=== PATIENT | male | born 1965 | race African-American/Black ===

== ENCOUNTER 2016-09-19 14:34 | Emergency (ER) | payer OTHER ==
[2016-09-19 14:57] VITALS: BP 127/71; PULSE 68; RESP 25; TEMP 98.1; O2SAT 100
[2016-09-19] MEDS ORDERED: ONDANSETRON 4 MG/2 ML VIAL IVP ONE (16:13)
[2016-09-19] MEDS ORDERED: NS 1,000 ML IV ONE (16:13)
[2016-09-19 16:40] LABS: % IMMATURE GRANULYOCYTES 0.3 % (0.0-1.1); ABSOLUTE IMMATURE GRANULOCYTES 0.02 10^3/uL (0.00-0.10); ADD DIFF? NO; ADD MORPH? NO; ADD SCAN? NO; ATYPICAL LYMPHOCYTE FLAG 10 (0-99); FRAGMENT RBC FLAG 20 (0-99); HEMATOCRIT 41.3 % (40.0-51.0); HEMOGLOBIN 14.1 g/dL (13.7-17.5); LEFT SHIFT FLG 0 (0-99); LIPEMIA HEMOLYSIS FLAG 90 (0-99); MEAN CELL HEMOGLOBIN 27.7 pg (27.9-34.1); MEAN CELL HEMOGLOBIN CONCENTR. 34.1 g/dL (32.4-36.7); MEAN CELL VOLUME 81.1 fL (81.5-99.8); MEAN PLATELET VOLUME 10.9 fL (8.7-11.7); PLATELET CLUMPS FLAG 0 (0-99); PLATELET COUNT 314 10^3/uL (150-400); RED BLOOD CELL COUNT 5.09 10^6/uL (4.40-6.38); RED CELL DISTRIBUTION WIDTH 18.4 % (11.5-15.2)
[2016-09-19 16:57] LABS: ALBUMIN 4.1 g/dL (3.5-5.0); BILIRUBIN,TOTAL 1.1 mg/dL (0.1-1.4); CALCIUM 10.5 mg/dL (8.5-10.4); CREATININE 1.5 mg/dL (0.7-1.3); POTASSIUM 3.5 mEq/L (3.5-5.2); TOTAL PROTEIN 7.8 g/dL (6.3-8.2)
[2016-09-19] MEDS ORDERED: MAALOX/HYOSC GI COCKTAIL 45 ML BOTTLE PO ONE (17:28)
[2016-09-19 17:56] LABS: LEUKOCYTE ESTERASE,URINE TRACE (NEGATIVE); NITRITE,URINE NEGATIVE (NEGATIVE); PH,URINE 5.5 (5.0-7.5)
[2016-09-19 18:01] LABS: COLOR DARK YELLOW
[2016-09-19 18:04] LABS: BACTERIA TRACE /hpf (NONE SEEN); MUCUS 2+ /lpf (NONE-1+); RBC,URINE NONE SEEN /hpf (0-3)
--- NOTE | 2016-09-19 18:04 | UCPHY ---
H & P Patient Type: Established Chief Complaint Nursing Narrative: abd pain alcoholic since wednesday Time Seen by Provider: 09/19/16 16:08 HPI/ROS: This patient has epigastric abdominal pain since Wednesday, 3 days prior to arrival. He describes it as crampy and achy. Symptoms increased but when he eats food. They also radiate to his back. He reports moderate intensity with no other exacerbating or alleviating factors. He has taken pantoprazole in the past for gastritis but is currently out of the medication. He has decreased appetite associated with the symptoms but is still tolerating some p.o. intake. He reports nausea as well but no vomiting. ROS: No high fevers or chills. No other constitutional symptoms. HEENT: No headache or other complaints pulmonary: No cough for shortness of breath. Cardiovascular: No chest pain. GI: Reports no bowel movement for 2 days but normal bowel movements prior to that. No urinary symptoms. 10 point ROS is otherwise negative. Source: Patient Exam Limitations: No limitations - Personal History Current Tetanus/Diphtheria Vaccine: Unsure Tetanus Vaccine Date: unsure - Medical/Surgical History PMH: Alcohol abuse. He reports his last alcohol intake was 5 days prior to arrival. He admits to binge drinking at times. Gastritis Hx Asthma: No Hx Chronic Respiratory Disease: No Hx Diabetes: No Hx Cardiac Disease: No Hx Renal Disease: No Hx Cirrhosis: No Hx Alcoholism: No Hx HIV/AIDS: No Hx Splenectomy or Spleen Trauma: No Other PMH: DENIES - Family History Significant Family History: No pertinent family hx - Social History Smoking Status: Current every day smoker Alcohol Use: Heavy (Binge drinker. Last intake was 5 days prior to arrival.) Drug Use: Marijuana (He reports daily marijuana use.) - Physical Exam Exam: General Appearance: Pleasant male Alert, no distress. Eyes: Pupils equal and round no pallor or injection. ENT, Mouth: Mucous membranes moist. Respiratory: There are no retractions, lungs are clear to auscultation. Cardiovascular: Regular rate and rhythm. Gastrointestinal: Normoactive, soft, mild epigastric tenderness that reproduces since symptoms. No guarding or rebound. No hepatomegaly or splenomegaly is appreciated. Back: No CVA tenderness. Neurological: Alert with no focal deficits. Skin: Warm and dry, no rashes. Musculoskeletal: Neck is supple nontender. Extremities are symmetrical, full range of motion. Psychiatric: Mood and affect normal DIFFERENTIAL DIAGNOSIS: After history and physical exam differential diagnosis was considered for gastritis, pancreatitis, cholecystitis, ulcer Constitutional: Initial Vital Signs Temperature (C) 36.7 C 09/19/16 14:54 Heart Rate 68 09/19/16 14:54 Respiratory Rate 25 H 09/19/16 14:54 Blood Pressure 127/71 H 09/19/16 14:54 O2 Sat (%) 100 09/19/16 14:54 O2 Delivery Mode Room Air Allergies/Adverse Reactions: No Known Allergies Allergy (Verified 09/19/16 14:54) Home Medications: Medication Instructions Recorded Ondansetron Odt [Zofran Odt] 4 mg PO Q4PRN PRN #10 tab 07/10/16 Pantoprazole Sodium [Protonix 40mg 40 mg PO DAILY #30 tab 07/10/16 (RX)] Pantoprazole Sodium [Protonix 40mg 40 mg PO DAILY #30 tab 09/19/16 (*)] Medical Decision Making ED Course/Re-evaluation: CBC is normal. Chemistries essentially normal. Course: Zofran with resolution of nausea and GI cocktail with resolution of epigastric discomfort. Discussion: Patient has findings most consistent with gastritis. I encouraged him to quit smoking and avoid alcohol abuse. Will restart him on Protonix. Maalox in addition if needed. He will follow up with primary care physician and return for any significant worsening despite treatment plan - Data Points Laboratory Results: Laboratory Results 09/19/16 16:35 09/19/16 16:35 09/19/16 09/19/16 17:50 16:35 WBC 6.08 10^3/uL (3.80-9.50) RBC 5.09 10^6/uL (4.40-6.38) Hgb 14.1 g/dL (13.7-17.5) Hct 41.3 % (40.0-51.0) MCV 81.1 L fL (81.5-99.8) MCH 27.7 L pg (27.9-34.1) MCHC 34.1 g/dL (32.4-36.7) RDW 18.4 H % (11.5-15.2) Plt Count 314 10^3/uL (150-400) MPV 10.9 fL (8.7-11.7) Neut % (Auto) 60.2 % (39.3-74.2) Lymph % (Auto) 27.0 % (15.0-45.0) [place] % (Auto) 11.8 % (4.5-13.0) Eos % (Auto) 0.0 L % (0.6-7.6) Baso % (Auto) 0.7 % (0.3-1.7) Nucleat RBC Rel Count 0.0 % (0.0-0.2) Absolute Neuts (auto) 3.66 10^3/uL (1.70-6.50) Absolute Lymphs (auto) 1.64 10^3/uL (1.00-3.00) Absolute Monos (auto) 0.72 10^3/uL (0.30-0.80) Absolute Eos (auto) 0.00 L 10^3/uL (0.03-0.40) Absolute Basos (auto) 0.04 10^3/uL (0.02-0.10) Absolute Nucleated RBC 0.00 10^3/uL (0-0.01) Immature Gran % 0.3 % (0.0-1.1) Immature Gran # 0.02 10^3/uL (0.00-0.10) Sodium 135 mEq/L (134-144) Potassium 3.5 mEq/L (3.5-5.2) Chloride 98 mEq/L (97-110) Carbon Dioxide 20 L mEq/l (22-31) Anion Gap 17 mEq/L (8-16) BUN 19 mg/dL (7-23) Creatinine 1.5 H mg/dL (0.7-1.3) Estimated GFR 49 Glucose 101 H mg/dL (70-100) Calcium 10.5 H mg/dL (8.5-10.4) Total Bilirubin 1.1 mg/dL (0.1-1.4) AST 55 IU/L (17-59) ALT 69 IU/L (21-72) Alkaline Phosphatase 90 IU/L (38-126) Total Protein 7.8 g/dL (6.3-8.2) Albumin 4.1 g/dL (3.5-5.0) Lipase 30.0 IU/L (23-300) Urine Color DARK YELLOW Urine Appearance HAZY Urine pH 5.5 (5.0-7.5) Ur Specific [place] >= 1.030 (1.002-1.030) Urine Protein 1+ H (NEGATIVE) Urine Ketones 1+ H (NEGATIVE) Urine Blood NEGATIVE (NEGATIVE) Urine Nitrate NEGATIVE (NEGATIVE) Urine Bilirubin POSITIVE H (NEGATIVE) Urine Urobilinogen 0.2 EU (0.2-1.0) Ur Leukocyte Esterase TRACE H (NEGATIVE) Urine RBC NONE SEEN /hpf (0-3) Urine WBC 3-5 H /hpf (0-3) Ur Epithelial Cells 1+ /lpf (NONE-1+) Urine Bacteria TRACE H /hpf (NONE SEEN) Hyaline Casts 5-15 /lpf (0-1) Urine Mucus 2+ H /lpf (NONE-1+) Urine Glucose NEGATIVE (NEGATIVE) Medications Given: Discontinued Medications Sodium Chloride (Ns) 1,000 mls @ 0 mls/hr IV ONCE ONE PRN Reason: Wide Open Stop: 09/19/16 16:14 Last Admin: 09/19/16 16:37 Dose: 1,000 mls Miscellaneous Medication (Gi Cocktail(No Lido)) 45 ml PO EDNOW ONE Stop: 09/19/16 17:29 Last Admin: 09/19/16 17:58 Dose: 45 ml Ondansetron HCl (Zofran) 4 mg IVP EDNOW ONE Stop: 09/19/16 16:14 Last Admin: 09/19/16 17:57 Dose: 4 mg Departure - Departure Disposition: Home, Routine, Self-Care Clinical Impression: gastritis Condition: Good Instructions: Gastritis (ED) Additional Instructions: Diagnosis: Gastritis Plan: Quit smoking Decreased alcohol intake Protonix acid ellie Maalox in addition as needed [place] diet to feel improved Go to the emergency department for any significant worsening despite treatment plan Follow up primary care physician for any ongoing symptoms Referrals: NONE *PRIMARY CARE P,. [Primary Care Provider] - As per Instructions Prescriptions: Pantoprazole Sodium [Protonix 40mg (*)] 40 mg PO DAILY #30 tab - PQRS PQRS Measurement: NA
== END 2016-09-19 18:36 | disposition home or self-care (01) ==
LOC: CED 14:34
DX: K29.70 Gastritis, unspecified, without bleeding (principal); Z72.0 Tobacco use; Z72.89 Other problems related to lifestyle; F12.90 Cannabis use, unspecified, uncomplicated
CPT/HCPCS: 80053-PO; 81003-PO; 81015-PO; 83690-PO; 85025-PO; 96361-PO; 96374-PO; 99215-PO; G0463-PO; J2405

== ENCOUNTER 2016-10-21 07:03 | Emergency (ER) | payer OTHER ==
[2016-10-21] MEDS ORDERED: MAALOX/LIDO/HYOSC GI COCKTAIL 55 ML BOTTLE PO ONE (07:22)
--- NOTE | 2016-10-21 07:24 | UCPHY ---
H & P Patient Type: Established Time Seen by Provider: 10/21/16 07:17 HPI/ROS: CHIEF COMPLAINT: Toe pain HISTORY OF PRESENT ILLNESS: Patient is a 51-year-old man who is well known to the department who comes this morning complaining of pain and deformity of his right great toe. 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 He states that has been this way for several years but is just starting to bother him. He also complains of indigestion. He has been seen here several times for this. Last time he was treated successfully with a GI cocktail. He is requesting this again. He is also prescribed antacids which she states he has been taking. Does not have any abdominal pain, vomiting or diarrhea. No fevers. REVIEW OF SYSTEMS: Constitutional: denies: chills, fever, recent illness, recent injury EENTM: denies: blurred vision, double vision, nose congestion Respiratory: denies: cough, shortness of breath Cardiac: denies: chest pain, irregular heart rate, lightheadedness, palpitations Gastrointestinal/Abdominal: See HPI Genitourinary: denies: dysuria, frequency, hematuria, pain Musculoskeletal: See HPI Skin: denies: lesions, rash, jaundice, bruising Neurological: denies: headache, numbness, paresthesia, tingling, dizziness, weakness Hematologic/Lymphatic: denies: blood clots, easy bleeding, easy bruising Immunologic/allergic: denies: HIV/AIDS, transplant EXAM: GENERAL: Well-appearing, well-nourished and in no acute distress. HEAD: Atraumatic, normocephalic. EYES: Pupils equal round and reactive to light, extraocular movements intact, sclera anicteric, conjunctiva are normal. ENT: TMs normal, nares patent, oropharynx clear without exudates. Moist mucous membranes. NECK: Normal range of motion, supple without lymphadenopathy or JVD. LUNGS: Breath sounds clear to auscultation bilaterally and equal. No wheezes rales or rhonchi. HEART: Regular rate and rhythm without murmurs, rubs or gallops. ABDOMEN: Soft, nontender, normoactive bowel sounds. No guarding, no rebound. No masses appreciated. BACK: No CVA tenderness, no spinal tenderness, step-offs or deformities EXTREMITIES: Bunion to right great toe. Not tender, no erythema, moist in between 1st and 2nd toe. No erythema or discharge NEUROLOGICAL: Cranial nerves II through XII grossly intact. Normal speech, normal gait. 5/5 strength, normal movement in all extremities, normal sensation PSYCH: Normal mood, normal affect. SKIN: Warm, dry, normal turgor, no visible rashes or lesions. Source: Patient Exam Limitations: No limitations - Personal History Tetanus Vaccine Date: unsure - Medical/Surgical History Hx Asthma: No Hx Chronic Respiratory Disease: No Hx Diabetes: No Hx Cardiac Disease: No Hx Renal Disease: No Hx Cirrhosis: No Hx Alcoholism: Yes Hx HIV/AIDS: No Hx Splenectomy or Spleen Trauma: No Other PMH: Alcoholism, pancreatitis - Family History Significant Family History: No pertinent family hx - Social History Smoking Status: Current every day smoker Alcohol Use: Heavy Drug Use: Marijuana Constitutional: Initial Vital Signs Temperature (C) 36.6 C 10/21/16 07:22 Heart Rate 136 H 10/21/16 07:22 Respiratory Rate 18 10/21/16 07:22 Blood Pressure 160/138 H 10/21/16 07:22 O2 Sat (%) 96 10/21/16 07:22 O2 Delivery Mode Room Air Allergies/Adverse Reactions: No Known Allergies Allergy (Verified 09/19/16 14:54) Home Medications: Medication Instructions Recorded Ondansetron Odt [Zofran Odt] 4 mg PO Q4PRN PRN #10 tab 07/10/16 Pantoprazole Sodium [Protonix 40mg 40 mg PO DAILY #30 tab 07/10/16 (RX)] Pantoprazole Sodium [Protonix 40mg 40 mg PO DAILY #30 tab 09/19/16 (*)] Medical Decision Making ED Course/Re-evaluation: We discussed foot care and donuts and keeping his feet dry as well as follow-up to a public address system mechanic. Will also treated with GI cocktail as he requests. He is drinking rowena aislinn currently. His abdominal exam is benign. Declines further workup or testing at this time. We discussed indications for returning. Differential Diagnosis: Partial list of the Differential diagnosis considered include but were not limited to; bunion, GERD, anxietyand although unlikely based on the history and physical exam, I also considered perforated ulcer, pancreatitis fracture abscess, cellulitis, osteomyelitis, gout. I discussed these differential diagnoses and the plan with the patient as well as the usual and expected course. The patient understands that the diagnosis is provisional and that in medicine we are not always correct and that further workup is often warranted. Usual and customary warnings were given. All of the patient's questions were answered. The patient was instructed to return to the emergency department should the symptoms at all worsen or return, otherwise to followup with the physician as we discussed. - Data Points Medications Given: Discontinued Medications Miscellaneous Medication (Gi Cocktail) 55 ml PO EDNOW ONE Stop: 10/21/16 07:23 Last Admin: 10/21/16 07:36 Dose: 55 ml Departure - Departure Disposition: Home, Routine, Self-Care Clinical Impression: Toe pain, right, Indigestion Condition: Fair Instructions: Bunion (ED), Indigestion (ED) Referrals: NONE *PRIMARY CARE P,. [Primary Care Provider] - As per Instructions My Corrigan [Doctor of Podiatric Medicine] - As per Instructions - PQRS PQRS Measurement: 134: Depression screening and followup, PRIME MD-PHQ2 (12 years and older) Over the last 2 weeks, how often have you been bothered by any of the following problems? 1. Feeling down, depressed, or hopeless? 2. Little interest or pleasure in doing things? Patient answered no to both 1 and 2 130: Documentation of medications. Reviewed all patient medications, doses, route and frequency. 226: Do you smoke? No. 47: 65 and older: Advanced care planning. Patient designates surrogate decision maker as spouse . Patient has advanced directive. 51: 18 years old and older with diagnosis of COPD, spirometry performance. Spirometry not performed; equipment not available. 52: 18 years old and older with COPD and symptoms of COPD or FEV1<60% predicted prescribed a B Agonist. Not applicable
[2016-10-21 07:25] VITALS: TEMP 97.9; O2SAT 96
[2016-10-21 07:39] VITALS: BP 152/110; PULSE 90; RESP 16
== END 2016-10-21 07:37 | disposition home or self-care (01) ==
LOC: CED 07:03
DX: M79.674 Pain in right toe(s) (principal); K30 Functional dyspepsia; F17.200 Nicotine dependence, unspecified, uncomplicated
CPT/HCPCS: 99214-PO; G0463-PO

== ENCOUNTER 2016-12-16 10:06 | Emergency (ER) | payer OTHER ==
[2016-12-16 10:13] VITALS: BP 125/62; PULSE 85; RESP 18; O2SAT 95
[2016-12-16 10:45] VITALS: TEMP 98
--- NOTE | 2016-12-16 10:54 | UCPHY ---
H & P Time Seen by Provider: 12/16/16 10:40 Patient Type: Established HPI/ROS: This patient complains of a cough associated with hoarse voice. He describes this as a dry hacking cough with feeling of some chest congestion and he has noted associated posttussive emesis from gagging from the cough. He has mild shortness of breath associated with this. The symptoms started 3 days prior to arrival and feels the severity is worsening. He notes no exacerbating or alleviating factors. ROS: No high fevers or chills. He does have low-grade subjective fevers. No significant fatigue. HEENT: Mild nasal congestion. No other complaints. Pulmonary: No pleuritic pain. No respiratory distress. No hemoptysis. Cardiovascular: No heart palpitations or lightheadedness. No lower extremity swelling or calf pain. GI: No nausea. No abdominal pain. 10 point ROS is otherwise negative. Social History: Smokes just under a pack cigarettes a day and has for years. Uses marijuana. No or other recreational drugs. Works as a cook. Smoking Status: Current every day smoker Physical Exam: Physical Exam Vital signs are normal. General: Pleasant black male with no acute distress HEENT: Nose: Clear discharge bilaterally. No sinus tenderness to percussion. Ears: External canals and tympanic membranes are clear with no erythema or abnormal findings bilaterally. Oropharynx: No erythema or exudates. Mildly hoarse voice. No drooling or stridor. Eyes: Pupils equal and react to light. Extraocular motions are intact. Neck: Supple with no meningismus. No lymphadenopathy Lungs: Expiratory wheeze-mild bilaterally. Minimal rhonchi. No rales. Cardiac: Regular rate and rhythm with no murmur gallop or rub no leg edema or calf tenderness. Abdomen: Soft, nontender Skin: No rash or pallor. Neuro: Alert with no focal deficits noted. Initial differential diagnosis: Bronchitis-viral versus bacterial such as pertussis, doubt pneumonia, COPD Constitutional: Initial Vital Signs Temperature (C) 36.6 C 12/16/16 10:11 Heart Rate 85 12/16/16 10:11 Respiratory Rate 18 12/16/16 10:11 Blood Pressure 125/62 H 12/16/16 10:11 O2 Sat (%) 95 12/16/16 10:11 O2 Delivery Mode Room Air Allergies/Adverse Reactions: No Known Allergies Allergy (Verified 09/19/16 14:54) Home Medications: Medication Instructions Recorded Ondansetron Odt [Zofran Odt] 4 mg PO Q4PRN PRN #10 tab 07/10/16 Pantoprazole Sodium [Protonix 40mg 40 mg PO DAILY #30 tab 07/10/16 (RX)] Pantoprazole Sodium [Protonix 40mg 40 mg PO DAILY #30 tab 09/19/16 (*)] Albuterol Hfa Anes Only [Proair 2 puffs IH Q4 PRN #1 mdi 12/16/16 Hfa Icu (*)] Azithromycin [Zithromax] 250 mg PO DAILY #6 tab 12/16/16 MDM/Departure - [facility] ED Course/Re-evaluation: Discussion: This patient has normal vitals sooner exception of a O2 sat of 95% appears well and has bronchitis findings with history of smoking, will cover with macrolide antibiotic given associated findings. - Depart Disposition: Home, Routine, Self-Care Clinical Impression: Acute bronchitis Qualifiers: Bronchitis organism: unspecified organism Qualified Code(s): J20.9 - Acute bronchitis, unspecified Condition: Good Instructions: Acute Bronchitis (ED), How to Stop Smoking (ED) Additional Instructions: Diagnosis: Acute bronchitis Plan: Humidifier Albuterol inhaler with spacer for cough, wheeze or shortness of breath Zithromax antibiotic Quit smoking No work for the next day or 2. Return for any significant worsening despite treatment plan Stand Alone Forms: Work Excuse Prescriptions: Albuterol Hfa Anes Only [Proair Hfa Icu (*)] 2 puffs IH Q4 PRN #1 mdi PRN Reason: Wheezing Azithromycin [Zithromax] 250 mg PO DAILY #6 tab Referrals: NONE *PRIMARY CARE P,. [Primary Care Provider] - As per Instructions - PQRS PQRS Measurement: NA
== END 2016-12-16 11:06 | disposition home or self-care (01) ==
LOC: CED 10:06
DX: J20.9 Acute bronchitis, unspecified (principal); F17.210 Nicotine dependence, cigarettes, uncomplicated
CPT/HCPCS: 99214-PO; G0463-PO

== ENCOUNTER 2017-01-17 07:21 | Emergency (ER) | payer SELFPAY ==
[2017-01-17 07:34] VITALS: RESP 18
[2017-01-17] MEDS ORDERED: NS 1,000 ML IV ONE ×2 (07:44→10:00)
[2017-01-17] MEDS ORDERED: ONDANSETRON 4 MG/2 ML VIAL IVP ONE (07:44)
[2017-01-17] MEDS ORDERED: PANTOPRAZOLE SODIUM 40 MG VIAL IVP ONE (07:45)
--- NOTE | 2017-01-17 07:52 | EDPHY ---
H & P Stated Complaint: n/v Time Seen by Provider: 01/17/17 07:30 HPI/ROS: CHIEF COMPLAINT: Nausea vomiting, dehydrated HISTORY OF PRESENT ILLNESS: This is a 51-year-old gentleman has been seen in the emergency department a number of occasions complaints of abdominal pain, nausea, vomiting. Per the old records it looks as if he may have been diagnosed with gastritis. Patient presents today stating that at midnight he developed nausea and then has had multiple bouts of vomiting over the past 8 hours. No diarrhea. Reports no fever. No abdominal prior to the vomiting; patient now feels that his abdomen is sore secondary to recurrent bouts of vomiting. No hematemesis. Patient denies any cold or cough symptoms, chest pain, or shortness of breath. Denies palpitations. No urinary complaints. He reports some lightheadedness but no syncope. REVIEW OF SYSTEMS: Aside from elements discussed in the HPI, a comprehensive 10-point review of systems was reviewed and is negative. PAST MEDICAL HISTORY: Patient denies. Records indicate prior diagnosis of gastritis. SOCIAL HISTORY: Smoker, alcohol use. VITAL SIGNS Reviewed by me. GENERAL: Well-developed, reports he feels very dehydrated. No respiratory distress. HEENT: Atraumatic. Eyes: [place] sclera, no injection. Mouth: dry mucous membranes. No erythema or lesions. Neck: supple with no adenopathy. LUNGS: Clear to auscultation bilaterally, no wheezes, rhonchi or rales. CARDIAC: Slightly tachycardic on my examination. No rubs, murmurs or gallops. ABDOMEN: Soft, nontender, nondistended, bowel sounds normal. BACK: No CVA tenderness. EXTREMITIES: No trauma. No edema. Range of motion is normal throughout. NEURO: Alert and oriented, grossly nonfocal. SKIN: Warm and dry, no rash. PSYCHIATRIC: Normal mentation, no agitation. Source: Patient, Old records - Personal History Current Tetanus/Diphtheria Vaccine: Yes Current Tetanus Diphtheria and Acellular Pertussis (TDAP): Yes Tetanus Vaccine Date: last 10 years - Medical/Surgical History Hx Asthma: No Hx Chronic Respiratory Disease: No Hx Diabetes: No Hx Cardiac Disease: No Hx Renal Disease: No Hx Cirrhosis: No Hx Alcoholism: Yes Hx HIV/AIDS: No Hx Splenectomy or Spleen Trauma: No Other PMH: Alcoholism, pancreatitis - Social History Smoking Status: Current every day smoker Constitutional: Initial Vital Signs Temperature (C) 36.3 C 01/17/17 07:32 Heart Rate 90 01/17/17 07:32 Respiratory Rate 18 01/17/17 07:32 Blood Pressure 138/78 H 01/17/17 07:32 O2 Sat (%) 100 01/17/17 07:32 O2 Delivery Mode Room Air O2 (L/minute) 2 Allergies/Adverse Reactions: No Known Allergies Allergy (Verified 09/19/16 14:54) Home Medications: Medication Instructions Recorded Ondansetron Odt [Zofran Odt] 4 mg PO Q4PRN PRN #10 tab 07/10/16 Pantoprazole Sodium [Protonix 40mg 40 mg PO DAILY #30 tab 07/10/16 (RX)] Pantoprazole Sodium [Protonix 40mg 40 mg PO DAILY #30 tab 09/19/16 (*)] Albuterol Hfa Anes Only [Proair 2 puffs IH Q4 PRN #1 mdi 12/16/16 Hfa Icu (*)] Azithromycin [Zithromax] 250 mg PO DAILY #6 tab 12/16/16 Omeprazole 20 mg PO DAILY #30 tab 01/17/17 Ondansetron Odt [Zofran Odt 4 mg 4 mg PO Q6 PRN #8 tab 01/17/17 (RX)] Medical Decision Making ED Course/Re-evaluation: 51-year-old gentleman presenting with reports of nausea and vomiting for a number of hours. Patient appears uncomfortable. Intermittently tachycardic on my examination, intermittently tachypneic. Reports abdominal pain which started after his vomiting. IV was established. Zofran was administered. Labs are remarkable for a anion gap of 23 with a bicarb of 15. Patient had an episode of retching while in the emergency department. He smells quite ketotic on his breath. Reports his last alcohol use was last p.m. prior to going into work. Serum ketones and serum alcohol level are not available at the [facility] Emergency Department. Patient's presentation seems most consistent with alcoholic ketoacidosis. Patient received D5 normal saline. Patient was reexamined at 9:15 a.m.. He reports his nausea is better but continues to complain of abdominal discomfort. Pain meds were ordered. Patient received Dilaudid. Patient's beta hydroxybutyric acid is positive at 3.39. I suspect this may be an alcoholic ketoacidosis. Again I discussed admission to the hospital with the patient. He wishes to be discharged home. Patient's chemistries were repeated after L fluid a L on D5 normal saline. His anion gap has closed. He has been able to tolerate Gatorade. He is up and ambulatory in the emergency department without difficulty. He reports feeling improved. He was discharged with his son with a prescription of Zofran as well as a prescription for omeprazole. He will follow up as needed. Differential Diagnosis: Differential diagnosis of the patient's nausea and vomiting was considered including but not limited to gastroenteritis, gastritis, alcohol intoxication, withdrawal symptoms, intraabdominal processes including appendicitis, pancreatitis, bowel obstruction and medication side effect. - Data Points Laboratory Results: Laboratory Results 01/17/17 07:50 01/17/17 11:10 01/17/17 01/17/17 01/17/17 12:30 11:10 08:55 WBC RBC Hgb Hct MCV MCH MCHC RDW Plt Count MPV Neut % (Auto) Lymph % (Auto) [place] % (Auto) Eos % (Auto) Baso % (Auto) Nucleat RBC Rel Count Absolute Neuts (auto) Absolute Lymphs (auto) Absolute Monos (auto) Absolute Eos (auto) Absolute Basos (auto) Absolute Nucleated RBC Immature Gran % Immature Gran # VBG Lactic Acid Sodium 139 mEq/L mEq/L (134-144) Potassium 3.8 mEq/L mEq/L (3.5-5.2) Chloride 107 mEq/L mEq/L (97-110) Carbon Dioxide 19 mEq/l L mEq/l (22-31) Anion Gap 13 mEq/L mEq/L (8-16) BUN 8 mg/dL mg/dL (7-23) Creatinine 0.6 mg/dL L mg/dL (0.7-1.3) Estimated GFR > 60 Glucose 203 mg/dL H D mg/dL (70-100) Calcium 8.8 mg/dL mg/dL (8.5-10.4) Total Bilirubin Conjugated Bilirubin Unconjugated Bilirubin AST ALT Alkaline Phosphatase Total Protein Albumin Lipase Beta-Hydroxybutyrate 3.39 mmol/L H mmol/L (0.02-0.27) Urine Color YELLOW Urine Appearance CLEAR Urine pH 5.0 (5.0-7.5) Ur Specific [place] >= 1.030 (1.002-1.030) Urine Protein TRACE H (NEGATIVE) Urine Ketones 3+ H (NEGATIVE) Urine Blood NEGATIVE (NEGATIVE) Urine Nitrate NEGATIVE (NEGATIVE) Urine Bilirubin NEGATIVE (NEGATIVE) Urine Urobilinogen 0.2 EU EU (0.2-1.0) Ur Leukocyte Esterase NEGATIVE (NEGATIVE) Urine RBC 1-3 /hpf /hpf (0-3) Urine WBC 5-10 /hpf H /hpf (0-3) Ur Epithelial Cells 3+ /lpf H /lpf (NONE-1+) Urine Bacteria 1+ /hpf H /hpf (NONE SEEN) Urine Mucus 4+ /lpf H /lpf (NONE-1+) Urine Yeast OCCASIONAL /hpf H /hpf (NONE SEEN) Urine Glucose 1+ H (NEGATIVE) 01/17/17 01/17/17 01/17/17 08:35 07:50 07:50 WBC 5.80 10^3/uL 10^3/uL (3.80-9.50) RBC 4.32 10^6/uL L 10^6/uL (4.40-6.38) Hgb 11.5 g/dL L g/dL (13.7-17.5) Hct 34.9 % L % (40.0-51.0) MCV 80.8 fL L fL (81.5-99.8) MCH 26.6 pg L pg (27.9-34.1) MCHC 33.0 g/dL g/dL (32.4-36.7) RDW 18.0 % H % (11.5-15.2) Plt Count 273 10^3/uL 10^3/uL (150-400) MPV 10.6 fL fL (8.7-11.7) Neut % (Auto) 83.1 % H % (39.3-74.2) Lymph % (Auto) 12.2 % L % (15.0-45.0) [place] % (Auto) 4.1 % L % (4.5-13.0) Eos % (Auto) 0.0 % L % (0.6-7.6) Baso % (Auto) 0.3 % % (0.3-1.7) Nucleat RBC Rel Count 0.0 % % (0.0-0.2) Absolute Neuts (auto) 4.81 10^3/uL 10^3/uL (1.70-6.50) Absolute Lymphs (auto) 0.71 10^3/uL L 10^3/uL (1.00-3.00) Absolute Monos (auto) 0.24 10^3/uL L 10^3/uL (0.30-0.80) Absolute Eos (auto) 0.00 10^3/uL L 10^3/uL (0.03-0.40) Absolute Basos (auto) 0.02 10^3/uL 10^3/uL (0.02-0.10) Absolute Nucleated RBC 0.00 10^3/uL 10^3/uL (0-0.01) Immature Gran % 0.3 % % (0.0-1.1) Immature Gran # 0.02 10^3/uL 10^3/uL (0.00-0.10) VBG Lactic Acid 1.9 mmol/L mmol/L (0.7-2.1) Sodium 141 mEq/L mEq/L (134-144) Potassium 3.7 mEq/L mEq/L (3.3-5.0) Chloride 103 mEq/L mEq/L (97-110) Carbon Dioxide 15 mEq/l L mEq/l (22-31) Anion Gap 23 mEq/L H mEq/L (8-16) BUN 10 mg/dL mg/dL (7-23) Creatinine 0.7 mg/dL mg/dL (0.7-1.3) Estimated GFR > 60 Glucose 122 mg/dL H mg/dL (70-100) Calcium 10.3 mg/dL mg/dL (8.5-10.4) Total Bilirubin 1.0 mg/dL mg/dL (0.1-1.4) Conjugated Bilirubin 0.4 mg/dL mg/dL (0.0-0.5) Unconjugated Bilirubin 0.6 mg/dL mg/dL (0.0-1.1) AST 51 IU/L IU/L (17-59) ALT 47 IU/L IU/L (21-72) Alkaline Phosphatase 118 IU/L IU/L (38-126) Total Protein 8.5 g/dL H g/dL (6.3-8.2) Albumin 4.4 g/dL g/dL (3.5-5.0) Lipase 52.0 IU/L IU/L (23-300) Beta-Hydroxybutyrate Urine Color Urine Appearance Urine pH Ur Specific [place] Urine Protein Urine Ketones Urine Blood Urine Nitrate Urine Bilirubin Urine Urobilinogen Ur Leukocyte Esterase Urine RBC Urine WBC Ur Epithelial Cells Urine Bacteria Urine Mucus Urine Yeast Urine Glucose Medications Given: Discontinued Medications Hydromorphone HCl (Dilaudid) 1 mg IVP EDNOW ONE Stop: 01/17/17 09:14 Last Admin: 01/17/17 09:25 Dose: 1 mg Sodium Chloride (Ns) 1,000 mls @ 0 mls/hr IV ONCE ONE PRN Reason: Wide Open Stop: 01/17/17 07:45 Last Admin: 01/17/17 08:00 Dose: 1,000 mls Dextrose/Sodium Chloride (D5w Ns) 1,000 mls @ 0 mls/hr IV EDNOW ONE PRN Reason: Wide Open Stop: 01/17/17 08:39 Last Admin: 01/17/17 09:15 Dose: 1,000 mls Sodium Chloride (Ns) 1,000 mls @ 0 mls/hr IV ONCE ONE PRN Reason: Wide Open Stop: 01/17/17 10:01 Last Admin: 01/17/17 10:00 Dose: 1,000 mls Ondansetron HCl (Zofran) 4 mg IVP EDNOW ONE Stop: 01/17/17 07:45 Last Admin: 01/17/17 08:06 Dose: 4 mg Pantoprazole Sodium (Protonix) 40 mg IVP EDNOW ONE Stop: 01/17/17 07:46 Last Admin: 01/17/17 08:06 Dose: 40 mg Departure - Departure Disposition: Home, Routine, Self-Care Clinical Impression: Dehydration, Alcoholic ketoacidosis Vomiting Qualifiers: Vomiting type: unspecified Vomiting Intractability: non-intractable Nausea presence: with nausea Qualified Code(s): R11.2 - Nausea with vomiting, unspecified Gastritis Qualifiers: Gastritis type: alcoholic Chronicity: unspecified Gastritis bleeding: without bleeding Qualified Code(s): K29.20 - Alcoholic gastritis without bleeding Condition: Good Instructions: Gastritis (ED), Dehydration (ED) Additional Instructions: Please stop drinking alcohol and stop smoking. This will help with your abdominal discomfort . I believe you have an element of alcoholic ketoacidosis. It is important for you to drink small, frequent sips of fluid. For your abdominal pain and vomiting, I suggested you start with a bland diet and advance as tolerated. This means start with clear liquids such as water, Gatorade, juice, flat non- caffeinated soda. If you tolerate clear liquids, then you may add bland foods such as bananas, rice, or toast. If you do not have any worsening of your symptoms, you may begin to resume a regular diet. Okay to use Zofran as needed for vomiting. Referrals: NONE *PRIMARY CARE P,. [Primary Care Provider] - As per Instructions Prescriptions: Omeprazole 20 mg PO DAILY #30 tab Ondansetron Odt [Zofran Odt 4 mg (RX)] 4 mg PO Q6 PRN #8 tab PRN Reason: Nausea
[2017-01-17 08:04] LABS: % IMMATURE GRANULYOCYTES 0.3 % (0.0-1.1); ABSOLUTE IMMATURE GRANULOCYTES 0.02 10^3/uL (0.00-0.10); ADD DIFF? NO; ADD MORPH? NO; ADD SCAN? NO; ATYPICAL LYMPHOCYTE FLAG 30 (0-99); FRAGMENT RBC FLAG 20 (0-99); HEMATOCRIT 34.9 % (40.0-51.0); HEMOGLOBIN 11.5 g/dL (13.7-17.5); LEFT SHIFT FLG 0 (0-99); LIPEMIA HEMOLYSIS FLAG 80 (0-99); MEAN CELL HEMOGLOBIN 26.6 pg (27.9-34.1); MEAN CELL VOLUME 80.8 fL (81.5-99.8); MEAN PLATELET VOLUME 10.6 fL (8.7-11.7); PLATELET CLUMPS FLAG 10 (0-99); PLATELET COUNT 273 10^3/uL (150-400); RED BLOOD CELL COUNT 4.32 10^6/uL (4.40-6.38)
[2017-01-17 08:16] LABS: ALANINE AMINOTRANSFERASE 47 IU/L (21-72); ALBUMIN 4.4 g/dL (3.5-5.0); ALKALINE PHOSPHATASE 118 IU/L (38-126); ANION GAP 23 mEq/L (8-16); ASPARTATE AMINOTRANSFERASE 51 IU/L (17-59); BILIRUBIN-CONJUGATED 0.4 mg/dL (0.0-0.5); BILIRUBIN-UNCONJUGATED 0.6 mg/dL (0.0-1.1); CALCIUM 10.3 mg/dL (8.5-10.4); CARBON DIOXIDE 15 mEq/l (22-31); CHLORIDE 103 mEq/L (97-110); CREATININE 0.7 mg/dL (0.7-1.3); GLOMERULAR FILTRATION RATE > 60; GLUCOSE 122 mg/dL (70-100); SODIUM 141 mEq/L (134-144); TOTAL PROTEIN 8.5 g/dL (6.3-8.2)
[2017-01-17 08:19] LABS: POTASSIUM 3.7 mEq/L (3.3-5.0)
[2017-01-17] MEDS ORDERED: ONDANSETRON 4 MG/2 ML VIAL ONE (08:21)
[2017-01-17] MEDS ORDERED: D5W NS 1,000 ML IV ONE (08:38)
[2017-01-17] MEDS ORDERED: HYDROmorphONE/DILAUDID 1 MG/ML SYR IVP ONE (09:13)
[2017-01-17 09:35] VITALS: O2SAT 97
[2017-01-17 11:35] LABS: ANION GAP 13 mEq/L (8-16); CALCIUM 8.8 mg/dL (8.5-10.4); CARBON DIOXIDE 19 mEq/l (22-31); CHLORIDE 107 mEq/L (97-110); CREATININE 0.6 mg/dL (0.7-1.3); GLOMERULAR FILTRATION RATE > 60; GLUCOSE 203 mg/dL (70-100); POTASSIUM 3.8 mEq/L (3.5-5.2); SODIUM 139 mEq/L (134-144)
[2017-01-17 12:40] LABS: COLOR YELLOW; LEUKOCYTE ESTERASE,URINE NEGATIVE (NEGATIVE); NITRITE,URINE NEGATIVE (NEGATIVE)
[2017-01-17 12:43] VITALS: BP 127/69; PULSE 68; TEMP 98.1
[2017-01-17 13:04] LABS: BACTERIA 1+ /hpf (NONE SEEN); MUCUS 4+ /lpf (NONE-1+); YEAST OCCASIONAL /hpf (NONE SEEN)
== END 2017-01-17 12:42 | disposition home or self-care (01) ==
LOC: CED 07:21
DX: K29.20 Alcoholic gastritis without bleeding (principal); E87.2 Acidosis; E86.0 Dehydration; F17.200 Nicotine dependence, unspecified, uncomplicated
CPT/HCPCS: 80048-PO; 80076-PO; 81003-PO; 81015-PO; 83605-PO; 83690-PO; 85025-PO; 96374; J1170; J2405

== ENCOUNTER 2017-02-14 23:51 | Emergency (ER) | payer SELFPAY ==
[2017-02-15 00:06] VITALS: RESP 18
[2017-02-15] MEDS ORDERED: ONDANSETRON 4 MG/2 ML VIAL ONE (00:18)
--- NOTE | 2017-02-15 00:18 | CPEKG ---
Heart Rate: 89 RR Interval: 674 P-R Interval: 144 QRSD Interval: 96 QT Interval: 380 QTC Interval: 463 P [place]: 81 QRS [place]: 26 T Wave [place]: 54 EKG Severity - NORMAL ECG - EKG Impression: PAC's. EKG Impression: SINUS RHYTHM Electronically Signed By: Nick Juarez 15-Feb-2017 06:09:27
[2017-02-15] MEDS ORDERED: LORazepam 2 MG/ML INJ ONE (00:26)
[2017-02-15] MEDS ORDERED: PANTOPRAZOLE SODIUM 40 MG VIAL ONE (00:29)
[2017-02-15] MEDS ORDERED: ONDANSETRON 4 MG/2 ML VIAL IVP ONE (00:33)
[2017-02-15] MEDS ORDERED: LORazepam 2 MG/ML INJ IVP ONE (00:33)
[2017-02-15] MEDS ORDERED: PANTOPRAZOLE SODIUM 40 MG VIAL IVP ONE (00:34)
[2017-02-15] MEDS ORDERED: NS 1,000 ML IV ONE ×2 (00:34)
[2017-02-15 00:46] LABS: ANION GAP 13 mEq/L (8-16); CALCIUM 10.1 mg/dL (8.5-10.4); CARBON DIOXIDE 21 mEq/l (22-31); CHLORIDE 104 mEq/L (97-110); CREATININE 0.7 mg/dL (0.7-1.3); GLOMERULAR FILTRATION RATE > 60; GLUCOSE 108 mg/dL (70-100); SODIUM 138 mEq/L (134-144)
[2017-02-15 00:48] LABS: % IMMATURE GRANULYOCYTES 0.5 % (0.0-1.1); ABSOLUTE IMMATURE GRANULOCYTES 0.02 10^3/uL (0.00-0.10); ADD DIFF? NO; ADD MORPH? NO; ADD SCAN? YES; FRAGMENT RBC FLAG 40 (0-99); HEMATOCRIT 34.5 % (40.0-51.0); HEMOGLOBIN 11.8 g/dL (13.7-17.5); LEFT SHIFT FLG 0 (0-99); LIPEMIA HEMOLYSIS FLAG 90 (0-99); MEAN CELL HEMOGLOBIN 26.2 pg (27.9-34.1); MEAN CELL HEMOGLOBIN CONCENTR. 34.2 g/dL (32.4-36.7); MEAN CELL VOLUME 76.7 fL (81.5-99.8); MEAN PLATELET VOLUME 11.4 fL (8.7-11.7); PLATELET CLUMPS FLAG 0 (0-99); PLATELET COUNT 289 10^3/uL (150-400); RED CELL DISTRIBUTION WIDTH 18.3 % (11.5-15.2)
[2017-02-15 00:51] LABS: ATYPICAL LYMPHOCYTE FLAG 140 (0-99)
--- NOTE | 2017-02-15 00:53 | EDPHY ---
H & P Time Seen by Provider: 02/15/17 00:05 HPI/ROS: CHIEF COMPLAINT: upper abdominal pain as well as vomiting or retching HISTORY OF PRESENT ILLNESS: this is a 52-year-old male states he is having the same at tach as before. Today he went to work having felt well at home and able to take fluids and hydrate. While at work he was hungry and ate some beef Slider that he prepared himself at around 7:00 p.m.. However shortly thereafter he started experiencing bilateral left greater than right upper abdominal discomfort. There was persistent enough and bothersome enough that he asked to go home early at around 8:00 p.m. his shift lasting till 9:00 p.m.. Once home the pain started accelerated any started to retch. Pain is cyclical in nature and that it would come on become intense and then would william. Vomiting itself did not seem to help all that much. Notes that the stuff coming up is essentially foamy clear liquid, certainly no signs of blood. When the pain is there it would not go into the back or chest. There is no pleuritic component to it. There is no shortness of breath or difficulty breathing. Of note is that he has had no decrease in his exercise capacity recently. No exercise intolerance. He states this is identical to the other episodes he has had in the past. In particular when he was here approximately a month ago he was much worse shape having been ill for at least 10 hours and of note upon chart review he had a positive beta hydroxybutyrate and did smell fruity to the examiner. He was recommended to be admitted to the hospital but declined and ultimately went home. At that visit he received Zofran IV for his vomiting as well as IV Dilaudid. He thinks he might have been on a course of Prilosec before. While he does state that he has had prior CT scan here as well as ultrasound I was only able to find the prior result which was essentially negative, no gallstones or pancreatitis. He has never had a gastroscopy. He also notes that he does not actually get water brash. P: Left upper quadrant pain since 7:00 p.m. Q: A burning pain R: Left upper quadrant, does not radiate S: Moderate to severe, 7 at this time T: Onset since 7:00 p.m. getting worse in particular since 9:00 p.m. REVIEW OF SYSTEMS: Constitutional: No fever, no chills. Eyes: No discharge ENT: No sore throat. Cardiovascular: No chest pain, no palpitations. Respiratory: No cough, shortness of breath, or wheezing. Gastrointestinal: See above Genitourinary: No hematuria or frequency. Musculoskeletal: No back pain. Skin: No rashes. Neurological: No headache. 10 point ROS otherwise negative Source: Patient Exam Limitations: No limitations - Personal History Tetanus Vaccine Date: last 10 years - Medical/Surgical History Hx Asthma: No Hx Chronic Respiratory Disease: No Hx Diabetes: No Hx Cardiac Disease: No Hx Renal Disease: No Hx Cirrhosis: No Hx Alcoholism: Yes Hx HIV/AIDS: No Hx Splenectomy or Spleen Trauma: No Other PMH: Alcoholism. He does not believe he has ever had pancreatitis. - Social History Smoking Status: Current every day smoker Alcohol Use: Heavy (He feels he needs to cut back and is considered himself to be an alcoholic) Drug Use: Marijuana (He has used marijuana daily for years) - Physical Exam Exam: General Appearance: Alert, no distress, occasionally retching. He has a polite man. Afebrile. Normal phonation. No respiratory distress. Eyes: Pupils equal and round no pallor or injection. No icterus ENT, Mouth: Mucous membranes dry. Pharynx without erythema or exudate. TM Clear. Neck: No adenopathy. Supple. No JVD. Trachea in midline. Respiratory: There are no retractions, lungs are clear to auscultation. Cardiovascular: Regular rate and rhythm, no murmur. Abdomen: Soft moderately tender in bilateral upper quadrants., no masses, bowel sounds normal. Femoral pulses equal. Neurological: Ox3. No motor weakness. Sensation intact. Gait nl. Skin: Warm and dry, no rashes. Musculoskeletal: No joint swelling. Extremities: No edema. Homans sign negative. No cords. Psychiatric: Normal affect. Patient is oriented X 3, there is no agitation Constitutional: Initial Vital Signs Temperature (C) 36.5 C 02/14/17 23:52 Heart Rate 78 02/14/17 23:52 Respiratory Rate 18 02/14/17 23:52 Blood Pressure 122/94 H 02/14/17 23:52 O2 Sat (%) 99 02/14/17 23:52 O2 Delivery Mode Room Air Allergies/Adverse Reactions: No Known Allergies Allergy (Verified 09/19/16 14:54) Home Medications: Medication Instructions Recorded Omeprazole 20 mg PO DAILY #21 capsule. 02/15/17 Ondansetron Odt [Zofran Odt 4 mg 4 mg PO Q4 PRN #10 tab 02/15/17 (*)] Medical Decision Making - Diagnostics EKG Interpretation: EKG: Interpreted by me contemporaneously. Normal sinus rhythm, with PACs Heart rate [89 ]. QTc [463 ] Q waves {none] STT segment: [normal] T Waves: [Normal] Summary: [Normal Ekg, except for PAC] ED Course/Re-evaluation: EKG did not show any signs of QT prolongation. The patient was placed on IV fluids for volume depletion, as well as 8 mg of Zofran and Ativan 1 mg IV when checked at 0100, he was sleeping, abdomen is soft and less tender. He was able to sleep thereafter Rechecked at 0100 - abd improved, soft, mild UQ tenderness. LABS: Hemoglobin 11.7 - this was compared to prior values and was similar to that seen at the end of December however is significantly lower than those results from 2016 MCV and MCH were slightly low Serum sodium normal Serum potassium low at 3.0 Creatinine preserved at 0.7 Lipase 71 At discharge discussed with him his need for a anemia workup Differential Diagnosis: Differential diagnosis includes, but is not limited to: Gastroenteritis, dehydration, diverticulitis, hepatitis, pancreatitis, renal colic, kidney stones, ureterolithiasis, cholecystitis, appendicitis, gastritis, mesenteric adenitis, food poisoning, bacterial dysentery. - Data Points Laboratory Results: Laboratory Results 02/15/17 00:04 02/15/17 00:04 02/15/17 02/15/17 00:04 00:04 WBC 4.41 10^3/uL 10^3/uL (3.80-9.50) RBC 4.50 10^6/uL 10^6/uL (4.40-6.38) Hgb 11.8 g/dL L g/dL (13.7-17.5) Hct 34.5 % L % (40.0-51.0) MCV 76.7 fL L fL (81.5-99.8) MCH 26.2 pg L pg (27.9-34.1) MCHC 34.2 g/dL g/dL (32.4-36.7) RDW 18.3 % H % (11.5-15.2) Plt Count 289 10^3/uL 10^3/uL (150-400) MPV 11.4 fL fL (8.7-11.7) Neut % (Auto) 52.6 % % (39.3-74.2) Lymph % (Auto) 31.7 % % (15.0-45.0) [place] % (Auto) 14.5 % H % (4.5-13.0) Eos % (Auto) 0.0 % L % (0.6-7.6) Baso % (Auto) 0.7 % % (0.3-1.7) Nucleat RBC Rel Count 0.0 % % (0.0-0.2) Absolute Neuts (auto) 2.32 10^3/uL 10^3/uL (1.70-6.50) Absolute Lymphs (auto) 1.40 10^3/uL 10^3/uL (1.00-3.00) Absolute Monos (auto) 0.64 10^3/uL 10^3/uL (0.30-0.80) Absolute Eos (auto) 0.00 10^3/uL L 10^3/uL (0.03-0.40) Absolute Basos (auto) 0.03 10^3/uL 10^3/uL (0.02-0.10) Absolute Nucleated RBC 0.00 10^3/uL 10^3/uL (0-0.01) Immature Gran % 0.5 % % (0.0-1.1) Immature Gran # 0.02 10^3/uL 10^3/uL (0.00-0.10) Sodium 138 mEq/L mEq/L (134-144) Potassium 3.0 mEq/L L mEq/L (3.5-5.2) Chloride 104 mEq/L mEq/L (97-110) Carbon Dioxide 21 mEq/l L mEq/l (22-31) Anion Gap 13 mEq/L mEq/L (8-16) BUN 9 mg/dL mg/dL (7-23) Creatinine 0.7 mg/dL mg/dL (0.7-1.3) Estimated GFR > 60 Glucose 108 mg/dL H mg/dL (70-100) Calcium 10.1 mg/dL mg/dL (8.5-10.4) Lipase 71.0 IU/L IU/L (23-300) Medications Given: Discontinued Medications Sodium Chloride (Ns) 1,000 mls @ 0 mls/hr IV ONCE ONE; As Directed PRN Reason: Protocol Stop: 02/15/17 00:35 Last Admin: 02/15/17 00:30 Dose: 1,000 mls Sodium Chloride (Ns) 1,000 mls @ 1,000 mls/hr IV ONCE ONE PRN Reason: Protocol Stop: 02/15/17 01:33 Last Admin: 02/15/17 00:37 Dose: Not Given Lorazepam (Ativan Injection) 1 mg IVP EDNOW ONE Stop: 02/15/17 00:34 Last Admin: 02/15/17 00:38 Dose: 1 mg Ondansetron HCl (Zofran) 8 mg IVP EDNOW ONE Stop: 02/15/17 00:34 Last Admin: 02/15/17 00:30 Dose: 8 mg Ondansetron HCl (Zofran Odt 4 Mg Prepack#2) 1 btl TAKEHOME EDNOW ONE Stop: 02/15/17 01:20 Last Admin: 02/15/17 01:31 Dose: 1 btl Pantoprazole Sodium (Protonix) 40 mg IVP EDNOW ONE Stop: 02/15/17 00:35 Last Admin: 02/15/17 00:30 Dose: 40 mg Departure - Departure Disposition: Home, Routine, Self-Care Clinical Impression: Dehydration Anemia Qualifiers: Anemia type: unspecified type Qualified Code(s): D64.9 - Anemia, unspecified Cyclic vomiting syndrome Qualifiers: Vomiting Intractability: non-intractable Nausea presence: with nausea Qualified Code(s): G43.A0 - Cyclical vomiting, not intractable Condition: Good Instructions: Dehydration (ED), Abdominal Pain (ED), Anemia (ED) Additional Instructions: Your found to be slightly anemic today. This was also seen at the end of December. This could be important medical problem than you would support that she follow through and have her family doctor do a medical evaluation for the underlying cause. You need to stop the marijuana. Most likely that the which really bother her stomach. That could explain where having these periodic attacks. Referrals: Patient,NotPresent [Primary Care Provider] - As per Instructions Teresa Fatima MD [[facility] [place] Primary [place] Provider] - As per Instructions Stand Alone Forms: Work Excuse Prescriptions: Omeprazole 20 mg PO DAILY #21 capsule. Ondansetron Odt [Zofran Odt 4 mg (*)] 4 mg PO Q4 PRN #10 tab PRN Reason: Dizziness
[2017-02-15 00:59] LABS: SCAN NEGATIVE
[2017-02-15 01:14] VITALS: TEMP 99.1
[2017-02-15] MEDS ORDERED: ONDANSETRON 4MG PREPACK#2 BTL TAKEHOME ONE (01:19)
[2017-02-15 02:54] VITALS: BP 135/82; PULSE 77; O2SAT 97
== END 2017-02-15 03:40 | disposition home or self-care (01) ==
LOC: CED 23:51
DX: E86.0 Dehydration (principal); D64.9 Anemia, unspecified; G43.A0 Cyclical vomiting, in migraine, not intractable; F17.200 Nicotine dependence, unspecified, uncomplicated
CPT/HCPCS: 80048-PO; 83690-PO; 85025-PO; 96374; J2060; J2405

== ENCOUNTER 2017-02-16 15:19 | Emergency (ER) | payer SELFPAY ==
--- NOTE | 2017-02-16 15:38 | CPEKG ---
Heart Rate: 59 RR Interval: 1017 P-R Interval: 128 QRSD Interval: 92 QT Interval: 404 QTC Interval: 401 P [place]: 44 QRS [place]: 13 T Wave [place]: 33 EKG Severity - ABNORMAL ECG - EKG Impression: SINUS RHYTHM EKG Impression: CONSIDER LEFT VENTRICULAR HYPERTROPHY Electronically Signed By: Ubaldo Gomez 16-Feb-2017 20:16:05
[2017-02-16] MEDS ORDERED: POTASSIUM CL 20 MEQ TAB PO ONE (15:48)
[2017-02-16] MEDS ORDERED: NS 1,000 ML IV ONE (15:48)
[2017-02-16] MEDS ORDERED: ONDANSETRON 4 MG/2 ML VIAL IVP ONE (15:53)
--- NOTE | 2017-02-16 16:05 | EDPHY ---
H & P Stated Complaint: c/o dizzyness/sob today while @ work Time Seen by Provider: 02/16/17 15:29 HPI/ROS: This patient reports lightheadedness and mild dyspnea. He explains that the symptoms developed this afternoon shortly after lunch time. He complains of his dizziness being worse when he standing and he notes no clear exacerbating factors. He states the symptoms are moderate but he has other associated somatic symptoms including brief tightness in his chest he feels in the chest wall-left pectoralis musculature area lasting a minute or so at a time again with no clear exacerbating factors since mid day today and mild intermittent periumbilical discomfort. Finally, he reports some paresthesias to his right arm intermittently. I reviewed his visit here 2 days ago when he presented with epigastric pain and at that time he had a nonischemic EKG, very mild anemia, mild hypokalemia with potassium of 3.0 and otherwise normal labs. He reports that his abdominal pain has significantly improved since the last visit. ROS: Constitutional: No high fevers or chills though he does have some subjective feeling of fevers at times. HEENT: Some nasal congestion over the past week. No other HEENT complaints Pulmonary: He reports a cough productive of sputum for the past week that is intermittent. No hemoptysis. No pleuritic pain. Cardiovascular: No persistent chest pain. No heart palpitations. No leg swelling or pain. Patient reports a dry mouth and feels that he is dehydrated GI: He reports normal appetite and normal bowel movements. No nausea. No vomiting. : No complaints Endocrine: No polyuria polydipsia . Integumentary: No skin rash or other complaints 10 point ROS is otherwise negative Source: Patient Exam Limitations: No limitations - Personal History Current Tetanus Diphtheria and Acellular Pertussis (TDAP): Unsure Tetanus Vaccine Date: last 10 years - Medical/Surgical History Hx Asthma: No Hx Chronic Respiratory Disease: No Hx Diabetes: No Hx Cardiac Disease: No Hx Renal Disease: No Hx Cirrhosis: No Hx Alcoholism: Yes Hx HIV/AIDS: No Hx Splenectomy or Spleen Trauma: No Other PMH: Alcoholism. He does not believe he has ever had pancreatitis. Patient reports that he has significantly cut back on his alcohol intake to 1 beer after workup per day. - Family History Significant Family History: No pertinent family hx - Social History Smoking Status: Current every day smoker Alcohol Use: Other (He reports drinking 1 beer after work per day now and recently had normal LFTs) Drug Use: Marijuana (He admits daily marijuana knees.) - Physical Exam Exam: Pleasant Black 52-year-old male General Appearance: Alert, no distress. Eyes: Pupils equal and round no pallor or injection. ENT, Mouth: Mucous membranes dry. Respiratory: There are no retractions, lungs are clear to auscultation. Cardiovascular: Regular rate and rhythm. No murmur gallop rub. No peripheral edema. Gastrointestinal: Abdomen is soft and nontender, no masses, bowel sounds normal. Neurological: GCS 15. Skin: Warm and dry, no rashes. Musculoskeletal: Neck is supple nontender. Extremities are symmetrical, full range of motion. Psychiatric: Mood and affect normal DIFFERENTIAL DIAGNOSIS: After history and physical exam differential diagnosis was considered for dehydration, hyperkalemia, PE, bronchitis, pneumonia, coronary syndrome Constitutional: Initial Vital Signs Temperature (C) 36.6 C 02/16/17 15:28 Heart Rate 88 02/16/17 15:28 Respiratory Rate 18 02/16/17 15:28 Blood Pressure 110/84 H 02/16/17 15:28 O2 Sat (%) 95 02/16/17 15:28 O2 Delivery Mode Room Air Allergies/Adverse Reactions: No Known Allergies Allergy (Verified 09/19/16 14:54) Home Medications: Medication Instructions Recorded Omeprazole 20 mg PO DAILY #21 capsule. 02/15/17 Ondansetron Odt [Zofran Odt 4 mg 4 mg PO Q4 PRN #10 tab 02/15/17 (*)] Medical Decision Making - Diagnostics EKG Interpretation: 12 lead EKG performed at 3:33 p.m. reveals sinus rhythm at 60 Intervals: Normal throughout [place]: Normal throughout LVH by voltage criteria Overall assessment sinus rhythm with LVH Imaging Results: Imaging Impressions Chest/Thorax CTA 02/16/17 16:35 Impression: 1. There is no CT evidence of pulmonary artery thromboemboli. 2. Small hiatal hernia with a small amount of intraluminal fluid within the esophagus, which could reflect some reflux. 3. Bilateral blebs, right greater than left, with no pneumothorax or pneumomediastinum in this patient with a history of tobacco use. 4. Mild central perihilar bronchial wall thickening with some minimal subsegmental atelectasis versus scar along the posterolateral left upper lobe, but no significant focal alveolar infiltrate. Findings were discussed with XOCHITL VASQUEZ MD at 17:24, on 02/16/2017. Discuss CT angio with Dr. Metzger-no pulmonary embolism. Patient has some blebs right more than left, peribronchial thickening consistent with smoking mild atelectasis. Patient also is noted to have a small hiatal hernia. No other abnormal findings. Imaging: Discussed imaging studies w/ call circuit worker Radiologist ED Course/Re-evaluation: IV Zofran for nausea Oral potassium 1 L normal saline bolus Shortly after arrival the patient developed more frequent coughing and felt nauseous. He is treated with Zofran with improvement IV Complained of periumbilical cramping discomfort thereafter was treated with Levsin sublingual some improvement. His D-dimer is elevated to 0.98. Given this finding associated with his risk factor for PE of smoking, symptoms of lightheadedness and dyspnea as well as atypical chest pain, he sent for CT angio to evaluate for potential PE. He is also placed on athletic monitor and given aspirin 324 p.o. Discussion: I think this patient has a mild viral bronchitis causing his dyspnea. The also had some mild dehydration given borderline orthostatic changes when he initially arrived this pulse going from the 80s to 108 when he stood up. No evidence of coronary syndrome or other complicating factors. I counseled patient regarding the findings. Will discharge him with an albuterol inhaler, encouraged smoking cessation and increase fluid intake. While his potassium was a bit low 1 previous visit it was essentially normal today 3.4 we did give him an additional 40 mEq p. o. potassium but did not think he has a significant hypokalemia at this time. - Data Points Laboratory Results: Laboratory Results 02/16/17 16:01 02/16/17 16:01 02/16/17 02/16/17 02/16/17 16:01 16:01 16:01 WBC 4.97 10^3/uL 10^3/uL (3.80-9.50) RBC 4.55 10^6/uL 10^6/uL (4.40-6.38) Hgb 11.9 g/dL L g/dL (13.7-17.5) Hct 35.8 % L % (40.0-51.0) MCV 78.7 fL L fL (81.5-99.8) MCH 26.2 pg L pg (27.9-34.1) MCHC 33.2 g/dL g/dL (32.4-36.7) RDW 18.6 % H % (11.5-15.2) Plt Count 339 10^3/uL D 10^3/uL (150-400) MPV 10.2 fL fL (8.7-11.7) Neut % (Auto) Not Reported Lymph % (Auto) Not Reported [place] % (Auto) Not Reported Eos % (Auto) Not Reported Baso % (Auto) Not Reported Nucleat RBC Rel Count 0.0 % % (0.0-0.2) Absolute Neuts (auto) Not Reported Absolute Lymphs (auto) Not Reported Absolute Monos (auto) Not Reported Absolute Eos (auto) Not Reported Absolute Basos (auto) Not Reported Absolute Nucleated RBC 0.00 10^3/uL 10^3/uL (0-0.01) Immature Gran % Not Reported Seg Neutrophils % 61 % % Lymphocytes % 33 % % Monocytes % 5 % % Basophils % 1 % % Immature Gran # Not Reported Absolute Seg Neuts 3.0 K/MM3 K/MM3 (1.8-7) Absolute Lymphocytes 1.6 K/mm3 K/mm3 (1.0-4.8) Absolute Monocytes 0.2 K/mm3 K/mm3 (0-0.8) Absolute Basophils 0.0 K/mm3 K/mm3 (0-0.2) Atypical Lymphocytes 1+ H Platelet Estimate ADEQUATE (ADEQ) Microcytic Cells 1+ H Target Cells 1+ H Tear Drop Cells 1+ H D-Dimer 0.98 ug/mLFEU H ug/mLFEU (0.00-0.50) Sodium 140 mEq/L mEq/L (134-144) Potassium 3.4 mEq/L L mEq/L (3.5-5.2) Chloride 105 mEq/L mEq/L (97-110) Carbon Dioxide 21 mEq/l L mEq/l (22-31) Anion Gap 14 mEq/L mEq/L (8-16) BUN 8 mg/dL mg/dL (7-23) Creatinine 0.7 mg/dL mg/dL (0.7-1.3) Estimated GFR > 60 Glucose 96 mg/dL mg/dL (70-100) Calcium 10.0 mg/dL mg/dL (8.5-10.4) Troponin I < 0.012 ng/mL ng/mL (0-0.034) Medications Given: Discontinued Medications Albuterol Sulfate (Proventil Inh Prepack) 1 mdi TAKEHOME EDNOW ONE Stop: 02/16/17 17:31 Last Admin: 02/16/17 17:34 Dose: 1 mdi Aspirin (Aspirin) 324 mg PO EDNOW ONE Stop: 02/16/17 16:36 Last Admin: 02/16/17 16:42 Dose: 324 mg Hyoscyamine Sulfate (Levsin, Hyomax-Sl) 0.125 mg PO EDNOW ONE Stop: 02/16/17 16:35 Last Admin: 02/16/17 16:42 Dose: 0.125 mg Sodium Chloride (Ns) 1,000 mls @ 0 mls/hr IV ONCE ONE; Wide Open PRN Reason: Protocol Stop: 02/16/17 15:49 Last Admin: 02/16/17 16:03 Dose: 1,000 mls Ondansetron HCl (Zofran) 4 mg IVP EDNOW ONE Stop: 02/16/17 15:54 Last Admin: 02/16/17 16:05 Dose: 4 mg Potassium Chloride (Klor-Con) 40 meq PO EDNOW ONE Stop: 02/16/17 15:49 Last Admin: 02/16/17 16:22 Dose: 40 meq Departure - Departure Disposition: Home, Routine, Self-Care Clinical Impression: Viral bronchitis, Dehydration, Lightheadedness, Hiatal hernia Condition: Good Instructions: How to Stop Smoking (ED), Hiatal Hernia (ED), Acute Bronchitis ( ED) Additional Instructions: Diagnoses: 1. Viral bronchitis 2. Dehydration 3. Hiatal hernia Plan: Quit smoking Albuterol inhaler with spacer-2 puffs every 4 hours as needed for cough, wheeze or shortness of breath Drink plenty fluids [place] diet until you belly feels improved Consider Prilosec 40 mg daily [id number] Maalox in addition if needed In addition, consider placing 2 by 4s under the legs at the head of her bed to propped and the bed slightly to decrease acid reflux at night. Follow up with primary care physician stability establish primary care doctor Return the emergency department if you have any significant worsening or symptoms despite the treatment plan Referrals: NONE *PRIMARY CARE P,. [Primary Care Provider] - As per Instructions Trav Neely MD [place] [place] - As per Instructions Stand Alone Forms: Work Excuse
[2017-02-16 16:12] LABS: ADD MORPH? NO; FRAGMENT RBC FLAG 40 (0-99); HEMATOCRIT 35.8 % (40.0-51.0); HEMOGLOBIN 11.9 g/dL (13.7-17.5); LEFT SHIFT FLG 0 (0-99); LIPEMIA HEMOLYSIS FLAG 80 (0-99); MEAN CELL HEMOGLOBIN 26.2 pg (27.9-34.1); MEAN CELL HEMOGLOBIN CONCENTR. 33.2 g/dL (32.4-36.7); MEAN CELL VOLUME 78.7 fL (81.5-99.8); MEAN PLATELET VOLUME 10.2 fL (8.7-11.7); PLATELET CLUMPS FLAG 10 (0-99); PLATELET COUNT 339 10^3/uL (150-400); RED BLOOD CELL COUNT 4.55 10^6/uL (4.40-6.38); RED CELL DISTRIBUTION WIDTH 18.6 % (11.5-15.2)
[2017-02-16 16:14] LABS: ADD DIFF? YES; ADD SCAN? NO; ATYPICAL LYMPHOCYTE FLAG 130 (0-99)
[2017-02-16 16:20] LABS: ANION GAP 14 mEq/L (8-16); CARBON DIOXIDE 21 mEq/l (22-31); CHLORIDE 105 mEq/L (97-110); CREATININE 0.7 mg/dL (0.7-1.3); GLOMERULAR FILTRATION RATE > 60; GLUCOSE 96 mg/dL (70-100); POTASSIUM 3.4 mEq/L (3.5-5.2); SODIUM 140 mEq/L (134-144)
[2017-02-16 16:33] LABS: TROPONIN I < 0.012 ng/mL (0-0.034)
[2017-02-16] MEDS ORDERED: HYOSCYAMINE SULFATE 0.125 MG TAB PO ONE (16:34)
[2017-02-16] MEDS ORDERED: ASPIRIN 81 MG CHEWABLE TAB PO ONE (16:35)
[2017-02-16 16:39] LABS: MICROCYTES 1+; PLATELET ESTIMATE ADEQUATE (ADEQ); TARGET CELLS 1+
[2017-02-16] MEDS ORDERED: IOPAMIDOL (ISOVUE 370) 100 ML BTL IV ONE (16:41)
[2017-02-16 16:43] VITALS: PULSE 61; RESP 16; TEMP 98.1
[2017-02-16] MEDS ORDERED: ALBUTEROL INH PREPACK MDI TAKEHOME ONE (17:30)
[2017-02-16 17:46] VITALS: BP 154/91; O2SAT 100
== END 2017-02-16 17:44 | disposition home or self-care (01) ==
LOC: CED 15:19
DX: E86.0 Dehydration (principal); J20.8 Acute bronchitis due to other specified organisms; K44.9 Diaphragmatic hernia without obstruction or gangrene; F17.200 Nicotine dependence, unspecified, uncomplicated; E86.9 Volume depletion, unspecified
CPT/HCPCS: 71275-PO; 80048-PO; 84484-PO; 85025-PO; 85378-PO; 96374; J2405; Q9967

== ENCOUNTER 2017-03-23 18:07 | Emergency (ER) | payer SELFPAY ==
[2017-03-23 18:29] VITALS: BP 114/75; PULSE 99; RESP 16; TEMP 98.8; O2SAT 97
[2017-03-23] MEDS ORDERED: ONDANSETRON 4 MG/2 ML VIAL IVP ONE (18:53)
[2017-03-23] MEDS ORDERED: NS 1,000 ML IV ONE (18:53)
[2017-03-23] MEDS ORDERED: MAG HYDROX/AL HYDROX/SIMETH 30 ML UDCUP PO ONE (19:44)
[2017-03-23 19:50] LABS: % IMMATURE GRANULYOCYTES 0.3 % (0.0-1.1); ABSOLUTE IMMATURE GRANULOCYTES 0.02 10^3/uL (0.00-0.10); ADD DIFF? NO; ADD MORPH? NO; ADD SCAN? NO; ATYPICAL LYMPHOCYTE FLAG 20 (0-99); FRAGMENT RBC FLAG 40 (0-99); HEMATOCRIT 35.5 % (40.0-51.0); HEMOGLOBIN 11.8 g/dL (13.7-17.5); LEFT SHIFT FLG 0 (0-99); LIPEMIA HEMOLYSIS FLAG 80 (0-99); MEAN CELL HEMOGLOBIN CONCENTR. 33.2 g/dL (32.4-36.7); MEAN CELL VOLUME 78.4 fL (81.5-99.8); MEAN PLATELET VOLUME 11.1 fL (8.7-11.7); PLATELET CLUMPS FLAG 0 (0-99); PLATELET COUNT 250 10^3/uL (150-400); RED BLOOD CELL COUNT 4.53 10^6/uL (4.40-6.38)
--- NOTE | 2017-03-23 20:00 | EDPHY ---
H & P Stated Complaint: medication refill Time Seen by Provider: 03/23/17 18:41 HPI/ROS: While he presented to triage simply requesting nausea medicine, when I enter the room he reports epigastric abdominal pain associated with vomiting. He states that the symptoms are mild in intensity but he has ongoing symptoms since this morning. He explains that he vomited this morning 1 time before eating breakfast and noticed epigastric pain around the same time. He reports that the nature of the discomfort is mild in achy. He states that it is also intermittently crampy and currently is 2/10 intensity. Peak intensity is been 4 /10. He took some Pepto-Bismol after vomiting and thinks it may have improved slightly with a Pepto-Bismol. He has ongoing nausea and requests a nausea medicine for ongoing nausea. He notes no other associated symptoms. He states the emesis was yellow in color. ROS: Constitutional: No recent fevers or chills. No fatigue. HEENT: No URI symptoms or headache. Pulmonary: No cough shortness of breath. Cardiovascular: No chest pain. No heart palpitations or lightheadedness. No lower extremity swelling. GI: No lower belly pain. He reports normal bowel movements in color, form and amount. No hematemesis or coffee-ground emesis. : No symptoms. Integumentary: No symptoms Endocrine: No symptoms 10 point ROS is otherwise negative. Source: Patient Exam Limitations: No limitations - Personal History Tetanus Vaccine Date: last 10 years - Medical/Surgical History Hx Asthma: No Hx Chronic Respiratory Disease: No Hx Diabetes: No Hx Cardiac Disease: No Hx Renal Disease: No Hx Cirrhosis: No Hx Alcoholism: Yes Hx HIV/AIDS: No Hx Splenectomy or Spleen Trauma: No Other PMH: Alcoholism. He does not believe he has ever had pancreatitis. Patient reports that he has significantly cut back on his alcohol intake to 1 beer after workup per day. - Family History Significant Family History: No pertinent family hx - Social History Smoking Status: Current every day smoker Tobacco Use: Less than 1 pack/day Alcohol Use: Heavy (The patient reports that he is down to 1 shot of whiskey and wound beer a day for alcohol intake) Drug Use: Marijuana - Physical Exam Exam: Vital signs are normal General Appearance: Pleasant black male Alert, no distress. Eyes: Pupils equal and round no pallor or injection. ENT, Mouth: Mucous membranes moist. Respiratory: There are no retractions, lungs are clear to auscultation. Cardiovascular: Regular rate and rhythm. Gastrointestinal: Normoactive, soft, mild epigastric tenderness. No guarding or rebound. No organomegaly. Neurological: GCS 15. No focal deficits. Skin: Warm and dry, no rashes. Musculoskeletal: Neck is supple nontender. Extremities are symmetrical, full range of motion. Psychiatric: Mood and affect normal DIFFERENTIAL DIAGNOSIS: After history and physical exam differential diagnosis was considered for alcohol gastritis, pancreatitis, viral illness, cholecystitis , ulcer Constitutional: Initial Vital Signs Temperature (C) 37.1 C 03/23/17 18:27 Heart Rate 99 03/23/17 18:27 Respiratory Rate 16 03/23/17 18:27 Blood Pressure 114/75 03/23/17 18:27 O2 Sat (%) 97 03/23/17 18:27 O2 Delivery Mode Room Air Allergies/Adverse Reactions: No Known Allergies Allergy (Verified 03/23/17 18:30) Home Medications: Medication Instructions Recorded Omeprazole 20 mg PO DAILY #21 capsule. 02/15/17 Ondansetron Odt [Zofran Odt 4 mg 4 mg PO Q4 PRN #10 tab 02/15/17 (*)] Ondansetron Odt [Zofran Odt] 4 - 8 mg PO Q4PRN PRN #4 tab 03/23/17 Medical Decision Making - Diagnostics EKG Interpretation: 12 lead EKG performed at 8:08 p.m. indication epigastric pain rule out coronary syndrome or CO Sinus rhythm at 73 Intervals: Normal throughout [place]: Normal LVH by voltage criteria Overall assessment sinus rhythm with LVH and early repolarization. J-point elevation is slightly more prominent in leads V2 and V3 compared to a previous EKG dated February 16, 2017 by my interpretation. Otherwise no interval change. ED Course/Re-evaluation: IV Zofran with resolution of nausea. Maalox with improvement epigastric discomfort. He tolerated p. o. fluids thereafter without emesis. He felt improved. While as EKG revealed LVH with J-point elevation I think this is consistent with early repolarization in his troponin is normal. Not think he is having active cardiac ischemia. I counseled regarding this. He has a known history of hiatal hernia and regular alcohol use currently daily [id number]-he reports 1 shot 1 beer a day. He is clinically sober at this time. We ruled out pancreatitis. No evidence of hepatitis or other complicating factors. The time discharge patient is comfortable in understands the plan to increase his omeprazole 40 mg a day, take Maalox p.r.n. follow up with Dr. Dawn to establish primary care physician. He understands the need to return if he develops any significant recurrence or worsening of symptoms despite the treatment plan. I also advised him to abstain from alcohol at least until his symptoms resolve. - Data Points Laboratory Results: Laboratory Results 03/23/17 19:40 03/23/17 19:40 03/23/17 03/23/17 03/23/17 19:40 19:40 19:40 WBC 5.82 10^3/uL 10^3/uL (3.80-9.50) RBC 4.53 10^6/uL 10^6/uL (4.40-6.38) Hgb 11.8 g/dL L g/dL (13.7-17.5) Hct 35.5 % L % (40.0-51.0) MCV 78.4 fL L fL (81.5-99.8) MCH 26.0 pg L pg (27.9-34.1) MCHC 33.2 g/dL g/dL (32.4-36.7) RDW 19.0 % H % (11.5-15.2) Plt Count 250 10^3/uL 10^3/uL (150-400) MPV 11.1 fL fL (8.7-11.7) Neut % (Auto) 61.5 % % (39.3-74.2) Lymph % (Auto) 25.8 % % (15.0-45.0) [place] % (Auto) 11.9 % % (4.5-13.0) Eos % (Auto) 0.0 % L % (0.6-7.6) Baso % (Auto) 0.5 % % (0.3-1.7) Nucleat RBC Rel Count 0.0 % % (0.0-0.2) Absolute Neuts (auto) 3.58 10^3/uL 10^3/uL (1.70-6.50) Absolute Lymphs (auto) 1.50 10^3/uL 10^3/uL (1.00-3.00) Absolute Monos (auto) 0.69 10^3/uL 10^3/uL (0.30-0.80) Absolute Eos (auto) 0.00 10^3/uL L 10^3/uL (0.03-0.40) Absolute Basos (auto) 0.03 10^3/uL 10^3/uL (0.02-0.10) Absolute Nucleated RBC 0.00 10^3/uL 10^3/uL (0-0.01) Immature Gran % 0.3 % % (0.0-1.1) Immature Gran # 0.02 10^3/uL 10^3/uL (0.00-0.10) Sodium 137 mEq/L mEq/L (134-144) Potassium 3.7 mEq/L mEq/L (3.5-5.2) Chloride 102 mEq/L mEq/L (97-110) Carbon Dioxide 20 mEq/l L mEq/l (22-31) Anion Gap 15 mEq/L mEq/L (8-16) BUN 13 mg/dL mg/dL (7-23) Creatinine 0.8 mg/dL mg/dL (0.7-1.3) Estimated GFR > 60 Glucose 95 mg/dL mg/dL (70-100) Calcium 11.2 mg/dL H mg/dL (8.5-10.4) Phosphorus 3.6 mg/dL mg/dL (2.5-4.5) Total Bilirubin 0.8 mg/dL mg/dL (0.1-1.4) AST 95 IU/L H IU/L (17-59) ALT 91 IU/L H IU/L (21-72) Alkaline Phosphatase 89 IU/L IU/L (38-126) Troponin I < 0.012 ng/mL ng/mL (0-0.034) Total Protein 8.0 g/dL g/dL (6.3-8.2) Albumin 4.6 g/dL g/dL (3.5-5.0) Lipase 40.0 IU/L IU/L (23-300) Medications Given: Discontinued Medications Al Hydroxide/Mg Hydroxide (Maalox Susp) 30 ml PO EDNOW ONE Stop: 03/23/17 19:45 Last Admin: 03/23/17 20:05 Dose: 30 ml Sodium Chloride (Ns) 1,000 mls @ 0 mls/hr IV EDNOW ONE; Wide Open PRN Reason: Protocol Stop: 03/23/17 18:54 Last Admin: 03/23/17 20:00 Dose: 1,000 mls Ondansetron HCl (Zofran) 4 mg IVP EDNOW ONE Stop: 03/23/17 18:54 Last Admin: 03/23/17 20:03 Dose: 4 mg Departure - Departure Disposition: Home, Routine, Self-Care Clinical Impression: Hiatal hernia Gastritis Qualifiers: Gastritis type: unspecified gastritis Chronicity: acute Gastritis bleeding: without bleeding Qualified Code(s): K29.00 - Acute gastritis without bleeding Vomiting Qualifiers: Vomiting Intractability: non-intractable Nausea presence: with nausea Condition: Good Instructions: Hiatal Hernia (ED), Acute Nausea and Vomiting (ED) Additional Instructions: Diagnosis: 1. Gastritis and hiatal hernia 2. Vomiting Plan: Stop alcohol for least a few days to light your stomach heal. Increase your omeprazole to 40 mg a day until your symptoms improve -likely over the next week and then backed out of 20 mg a day Maalox in addition if needed for symptoms Zofran if needed for nausea or vomiting Return for any significant worsening despite the treatment plan Follow up with primary care physician for any ongoing symptoms last beyond the next 5-7 days Referrals: Gale Dawn MD [Medical Doctor] - As per Instructions Prescriptions: Ondansetron Odt [Zofran Odt] 4 - 8 mg PO Q4PRN PRN #4 tab PRN Reason: Vomiting
[2017-03-23 20:05] LABS: ALANINE AMINOTRANSFERASE 91 IU/L (21-72); ALBUMIN 4.6 g/dL (3.5-5.0); ALKALINE PHOSPHATASE 89 IU/L (38-126); ANION GAP 15 mEq/L (8-16); ASPARTATE AMINOTRANSFERASE 95 IU/L (17-59); BILIRUBIN,TOTAL 0.8 mg/dL (0.1-1.4); CALCIUM 11.2 mg/dL (8.5-10.4); CARBON DIOXIDE 20 mEq/l (22-31); CHLORIDE 102 mEq/L (97-110); CREATININE 0.8 mg/dL (0.7-1.3); GLOMERULAR FILTRATION RATE > 60; GLUCOSE 95 mg/dL (70-100); POTASSIUM 3.7 mEq/L (3.5-5.2); SODIUM 137 mEq/L (134-144)
--- NOTE | 2017-03-23 20:09 | CPEKG ---
Heart Rate: 73 RR Interval: 822 P-R Interval: 160 QRSD Interval: 98 QT Interval: 380 QTC Interval: 419 P [place]: 72 QRS [place]: 26 T Wave [place]: 39 EKG Severity - ABNORMAL ECG - EKG Impression: SINUS RHYTHM EKG Impression: LEFT VENTRICULAR HYPERTROPHY EKG Impression: ST ELEV, PROBABLE NORMAL EARLY REPOL PATTERN Electronically Signed By: Ubaldo Gomez 23-Mar-2017 21:23:53
[2017-03-23] MEDS ORDERED: ONDANSETRON 4MG PREPACK#2 BTL TAKEHOME ONE (21:01)
== END 2017-03-23 21:05 | disposition home or self-care (01) ==
LOC: CED 18:07
DX: K44.9 Diaphragmatic hernia without obstruction or gangrene (principal); K29.00 Acute gastritis without bleeding; F17.200 Nicotine dependence, unspecified, uncomplicated; E86.9 Volume depletion, unspecified
CPT/HCPCS: 80053-PO; 83690-PO; 84100-PO; 84484-PO; 85025-PO; 96374; J2405

== ENCOUNTER 2017-03-26 20:36 | Emergency (ER) | payer SELFPAY ==
--- NOTE | 2017-03-26 20:51 | EDPHY ---
H & P Stated Complaint: n/v abd cramping today and some sob Time Seen by Provider: 03/26/17 20:44 HPI/ROS: CHIEF COMPLAINT: Vomiting HISTORY OF PRESENT ILLNESS: The patient is a 52-year-old man who is seen here frequently with cyclic vomiting and bronchitis. He reports that at work today he felt suddenly short of breath and then vomited once. He is symptoms have now resolved. He comes to the emergency department because he is concerned that he is dehydrated. He is not febrile. He denies abdominal pain. He denies chest pain or shortness of breath. No diarrhea. REVIEW OF SYSTEMS: Constitutional: denies: chills, fever, recent illness, recent injury EENTM: denies: blurred vision, double vision, nose congestion Respiratory: denies: cough, shortness of breath Cardiac: denies: chest pain, irregular heart rate, lightheadedness, palpitations Gastrointestinal/Abdominal: See HPI denies: abdominal pain, diarrhea, blood streaked stools Genitourinary: denies: dysuria, frequency, hematuria, pain Musculoskeletal: denies: joint pain, muscle pain Skin: denies: lesions, rash, jaundice, bruising Neurological: denies: headache, numbness, paresthesia, tingling, dizziness, weakness Hematologic/Lymphatic: denies: blood clots, easy bleeding, easy bruising Immunologic/allergic: denies: HIV/AIDS, transplant EXAM: GENERAL: Well-appearing, well-nourished and in no acute distress. HEAD: Atraumatic, normocephalic. EYES: Pupils equal round and reactive to light, extraocular movements intact, sclera anicteric, conjunctiva are normal. ENT: TMs normal, nares patent, oropharynx clear without exudates. Moist mucous membranes. NECK: Normal range of motion, supple without lymphadenopathy or JVD. LUNGS: Breath sounds clear to auscultation bilaterally and equal. No wheezes rales or rhonchi. HEART: Regular rate and rhythm without murmurs, rubs or gallops. ABDOMEN: Soft, nontender, normoactive bowel sounds. No guarding, no rebound. No masses appreciated. BACK: No CVA tenderness, no spinal tenderness, step-offs or deformities EXTREMITIES: Normal range of motion, no pitting or edema. No clubbing or cyanosis. NEUROLOGICAL: Cranial nerves II through XII grossly intact. Normal speech, normal gait. 5/5 strength, normal movement in all extremities, normal sensation PSYCH: Normal mood, normal affect. SKIN: Warm, dry, normal turgor, no visible rashes or lesions. Source: Patient Exam Limitations: No limitations - Personal History Current Tetanus/Diphtheria Vaccine: Unsure Current Tetanus Diphtheria and Acellular Pertussis (TDAP): Unsure Tetanus Vaccine Date: last 10 years - Medical/Surgical History Hx Asthma: No Hx Chronic Respiratory Disease: No Hx Diabetes: No Hx Cardiac Disease: No Hx Renal Disease: No Hx Cirrhosis: No Hx Alcoholism: Yes Hx HIV/AIDS: No Hx Splenectomy or Spleen Trauma: No Other PMH: Alcoholism, cyclic vomiting, - Family History Significant Family History: No pertinent family hx - Social History Smoking Status: Current every day smoker Alcohol Use: Heavy Drug Use: Marijuana Constitutional: Initial Vital Signs Temperature (C) 36.7 C 03/26/17 20:45 Heart Rate 67 03/26/17 20:45 Respiratory Rate 16 03/26/17 20:45 Blood Pressure 125/91 H 03/26/17 20:45 O2 Sat (%) 99 03/26/17 20:45 O2 Delivery Mode Room Air Allergies/Adverse Reactions: No Known Allergies Allergy (Verified 03/26/17 20:48) Home Medications: Medication Instructions Recorded Omeprazole 20 mg PO DAILY #21 capsule. 02/15/17 Ondansetron Odt [Zofran Odt] 4 - 8 mg PO Q4PRN PRN #4 tab 03/23/17 Inhaler, Assist Devices 03/26/17 Medical Decision Making ED Course/Re-evaluation: Patient is well appearing, has a benign abdomen and is saturating 99% on room air. He has moist mucous membranes. I will treat him with oral Zofran and oral hydration. 10:00 p.m. the patient is tolerating p. o.. He feels much better and is eager to go home. His abdominal exam remained benign. Differential Diagnosis: Partial list of the Differential diagnosis considered include but were not limited to; gastritis, food poisoning, dehydration and although unlikely based on the history and physical exam, I also considered aspiration, acute coronary disease, arrhythmia, pancreatitis, biliary disease. I discussed these differential diagnoses and the plan with the patient as well as the usual and expected course. The patient understands that the diagnosis is provisional and that in medicine we are not always correct and that further workup is often warranted. Usual and customary warnings were given. All of the patient's questions were answered. The patient was instructed to return to the emergency department should the symptoms at all worsen or return, otherwise to followup with the physician as we discussed. - Data Points Medications Given: Discontinued Medications Ondansetron HCl (Zofran Odt) 4 mg PO EDNOW ONE Stop: 03/26/17 20:49 Last Admin: 03/26/17 20:56 Dose: 4 mg Ondansetron HCl (Zofran Odt 4 Mg Prepack#2) 1 btl TAKEHOME EDNOW ONE Stop: 03/26/17 22:10 Last Admin: 03/26/17 22:14 Dose: 1 btl Departure - Departure Disposition: Home, Routine, Self-Care Clinical Impression: Vomiting Qualifiers: Vomiting type: unspecified Vomiting Intractability: non-intractable Nausea presence: without nausea Qualified Code(s): R11.11 - Vomiting without nausea Condition: Fair Instructions: Acute Nausea and Vomiting (ED) Referrals: NONE *PRIMARY CARE P,. [Primary Care Provider] - As per Instructions [facility],. [Clinic] - As per Instructions
[2017-03-26] MEDS: ONDANSETRON DISINTEGRATING 4 MG TAB PO ONE (20:56)
[2017-03-26 21:51] VITALS: BP 134/87; PULSE 75; RESP 12; TEMP 98.4; O2SAT 97
[2017-03-26] MEDS: ONDANSETRON 4MG PREPACK#2 BTL TAKEHOME ONE (22:14)
== END 2017-03-26 22:15 | disposition home or self-care (01) ==
LOC: CED 20:36
DX: R11.10 Vomiting, unspecified (principal); F17.200 Nicotine dependence, unspecified, uncomplicated

== ENCOUNTER 2017-03-28 15:08 | Emergency (ER) | payer SELFPAY ==
[2017-03-28 15:27] VITALS: RESP 16; TEMP 97.9
[2017-03-28] MEDS ORDERED: ONDANSETRON DISINTEGRATING 4 MG TAB PO ONE (15:57)
--- NOTE | 2017-03-28 16:04 | EDPHY ---
H & P Stated Complaint: Chronic n/v abd pain started this am vomited twice in am Time Seen by Provider: 03/28/17 15:25 HPI/ROS: CHIEF COMPLAINT: Abdominal pain HISTORY OF PRESENT ILLNESS: This is a 52-year-old male with a history of alcohol abuse, here for the 3rd time this week. He tells me that he does not have a primary care physician, but does have a referral and plans to schedule an appointment. In the meantime, he is using the emergency department for his primary care. He presents today with intermittent abdominal cramping. He has been taking Zofran for nausea, which is also intermittent. The Zofran has been helping his nausea but he has run out of this medication and requests a refill ( he was given 4 ODT on 03/23/17). He has been preliminarily diagnosed with gastritis and is taking omeprazole twice daily. He is avoiding spicy foods. He had an episode of vomiting this morning, none since. Dap had an episode of crampy abdominal pain just prior to my interview. These episodes come and go and last about 10 minutes at a time. They are associated with diaphoresis and a sensation of shortness of breath. The pain involves his entire abdomen. He has not had diarrhea. He denies seeing any blood in his stool. He does not take NSAIDs or aspirin. He does take Tylenol occasionally. He has not had fever but does sometimes feel hot and cold. No urinary complaints. He has not had chest pain, cough, and feel short of breath only when he is experiencing abdominal pain. He has not had a colonoscopy. REVIEW OF SYSTEMS: A ten point review of systems was performed and is negative with the exception of the items mentioned in the HPI. - Personal History Current Tetanus/Diphtheria Vaccine: Unsure Current Tetanus Diphtheria and Acellular Pertussis (TDAP): Unsure Tetanus Vaccine Date: last 10 years - Medical/Surgical History PMH: 1. Tobacco abuse, currently smoking 1/2 pack of cigarettes daily 2. Alcohol abuse--he has been cutting back on his alcohol over the past year and is currently drinking 1-2 beers and 1 shot daily. In the past he drank more heavily than this. Hx Asthma: No Hx Chronic Respiratory Disease: No Hx Diabetes: No Hx Cardiac Disease: No Hx Renal Disease: No Hx Cirrhosis: No Hx Alcoholism: Yes Hx HIV/AIDS: No Hx Splenectomy or Spleen Trauma: No - Social History Smoking Status: Current every day smoker Alcohol Use: Heavy Drug Use: Marijuana (1-2 g daily) Additional Social History: He is and lives with his . 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 He smokes 1/2 pack of cigarettes daily, 1-2 g of marijuana daily, and drinks 1-2 beers with 1 shot daily. - Physical Exam Exam: General Appearance: Alert. Vital signs reviewed. Eyes: Pupils equal and round, no conjunctival injection, no discharge. Anicteric. ENT, Mouth: Mucous membranes are moist, no oropharyngeal erythema or edema. Neck: No lymphadenopathy, supple. Respiratory: Lungs are clear to auscultation; no wheezes, rales, or rhonchi. Cardiovascular: Regular rate and rhythm; no murmur, rub, or gallop. Gastrointestinal: Abdomen is soft and nontender, no masses or organomegaly, bowel sounds normal. Skin: Warm and dry, no rashes on exposed skin, normal color. Back: Nontender to palpation over the thoracolumbar spine. No CVAT. Extremities: No lower extremity edema, no calf tenderness or swelling. Neurological: Alert and oriented. Moving all four extremities easily and equally. Psychiatric: Normal affect. Constitutional: Initial Vital Signs Temperature (C) 36.6 C 03/28/17 15:15 Heart Rate 92 03/28/17 15:15 Respiratory Rate 16 03/28/17 15:15 Blood Pressure 104/71 03/28/17 15:15 O2 Sat (%) 97 03/28/17 15:15 O2 Delivery Mode Room Air Allergies/Adverse Reactions: No Known Allergies Allergy (Verified 03/28/17 15:15) Home Medications: Medication Instructions Recorded Omeprazole 20 mg PO DAILY #21 capsule. 02/15/17 Ondansetron Odt [Zofran Odt] 4 - 8 mg PO Q4PRN PRN #4 tab 03/23/17 Inhaler, Assist Devices 03/26/17 Ondansetron Odt [Zofran Odt 4 mg 4 mg PO Q4 PRN #10 tab 03/28/17 (RX)] Medical Decision Making ED Course/Re-evaluation: He was pain-free at the time of my initial exam. However, approximately 0.5 hour later he again developed diffuse abdominal crampy pain associated with diaphoresis and some shortness of breath. He felt nauseous. He was given Zofran 0DT. His abdominal exam remains benign with no specific area of tenderness and no guarding or rebound. I have reviewed the labs done on March 23, less than 1 week ago. Hemoglobin and hematocrit were 11 and 35 on that day. AST was 95 and ALT was 91. Lipase was normal. Bilirubin was normal. 4:20 p.m.. Patient re-evaluated after receiving Zofran 0DT. He continues with abdominal pain and nausea. IV will be started, normal saline IV will be given. I am going to repeat the blood work that was done on the including liver functions and lipase. Hemoglobin and hematocrit have improved over the last 5 days. His hemoglobin is 13.3 today with hematocrit of 39.9. AST is normal and ALT is 76. Normal lipase. 5:25 p.m.. He is feeling better after napping. He received 1 L IV normal saline. I am stressing the importance of follow-up with the primary care physician. If this continues he will likely need GI follow-up also. He has not been taking Maalox and is advised to do so, along with the omeprazole. His abdomen is soft and nontender discharge. He has not vomited in the emergency department. I continue to think that this is gastritis/peptic ulcer disease. He does not have pancreatitis, based upon his laboratory findings. I do not think that this is cholecystitis. Differential Diagnosis: Abdominal pain including but not limited to appendicitis, bowel obstruction, cholecystitis, pancreatitis, gastritis and urinary tract infection. - Data Points Laboratory Results: Laboratory Results 03/28/17 16:31 03/28/17 16:31 03/28/17 03/28/17 16:31 16:31 WBC 6.29 10^3/uL 10^3/uL (3.80-9.50) RBC 5.01 10^6/uL 10^6/uL (4.40-6.38) Hgb 13.3 g/dL L g/dL (13.7-17.5) Hct 39.9 % L % (40.0-51.0) MCV 79.6 fL L fL (81.5-99.8) MCH 26.5 pg L pg (27.9-34.1) MCHC 33.3 g/dL g/dL (32.4-36.7) RDW 19.7 % H % (11.5-15.2) Plt Count 345 10^3/uL 10^3/uL (150-400) MPV 10.5 fL fL (8.7-11.7) Neut % (Auto) 68.6 % % (39.3-74.2) Lymph % (Auto) 21.3 % % (15.0-45.0) Worth % (Auto) 9.4 % % (4.5-13.0) Eos % (Auto) 0.0 % L % (0.6-7.6) Baso % (Auto) 0.5 % % (0.3-1.7) Nucleat RBC Rel Count 0.0 % % (0.0-0.2) Absolute Neuts (auto) 4.32 10^3/uL 10^3/uL (1.70-6.50) Absolute Lymphs (auto) 1.34 10^3/uL 10^3/uL (1.00-3.00) Absolute Monos (auto) 0.59 10^3/uL 10^3/uL (0.30-0.80) Absolute Eos (auto) 0.00 10^3/uL L 10^3/uL (0.03-0.40) Absolute Basos (auto) 0.03 10^3/uL 10^3/uL (0.02-0.10) Absolute Nucleated RBC 0.00 10^3/uL 10^3/uL (0-0.01) Immature Gran % 0.2 % % (0.0-1.1) Immature Gran # 0.01 10^3/uL 10^3/uL (0.00-0.10) Sodium 137 mEq/L mEq/L (134-144) Potassium 3.6 mEq/L mEq/L (3.5-5.2) Chloride 99 mEq/L mEq/L (97-110) Carbon Dioxide 22 mEq/l mEq/l (22-31) Anion Gap 16 mEq/L mEq/L (8-16) BUN 13 mg/dL mg/dL (7-23) Creatinine 0.7 mg/dL mg/dL (0.7-1.3) Estimated GFR > 60 Glucose 103 mg/dL H mg/dL (70-100) Calcium 11.1 mg/dL H mg/dL (8.5-10.4) Phosphorus 3.2 mg/dL mg/dL (2.5-4.5) Total Bilirubin 0.6 mg/dL mg/dL (0.1-1.4) Conjugated Bilirubin 0.3 mg/dL mg/dL (0.0-0.5) Unconjugated Bilirubin 0.3 mg/dL mg/dL (0.0-1.1) AST 58 IU/L IU/L (17-59) ALT 76 IU/L H IU/L (21-72) Alkaline Phosphatase 81 IU/L IU/L (38-126) Total Protein 8.1 g/dL g/dL (6.3-8.2) Albumin 4.6 g/dL g/dL (3.5-5.0) Lipase 69.0 IU/L IU/L (23-300) Medications Given: Discontinued Medications Sodium Chloride (Ns) 1,000 mls @ 0 mls/hr IV EDNOW ONE; Wide Open PRN Reason: Protocol Stop: 03/28/17 16:18 Last Admin: 03/28/17 16:30 Dose: 1,000 mls Ondansetron HCl (Zofran Odt) 4 mg PO EDNOW ONE Stop: 03/28/17 15:58 Last Admin: 03/28/17 15:59 Dose: 4 mg Departure - Departure Disposition: Home, Routine, Self-Care Clinical Impression: Abdominal pain Qualifiers: Abdominal location: generalized Qualified Code(s): R10.84 - Generalized abdominal pain Gastritis Qualifiers: Gastritis type: unspecified gastritis Chronicity: acute Gastritis bleeding: without bleeding Qualified Code(s): K29.00 - Acute gastritis without bleeding Condition: Good Instructions: Gastritis (ED) Additional Instructions: Continue the omeprazole twice daily. Buy some Maalox at the drug store and use this per the instructions on the bottle. Use the Zofran as needed for nausea and vomiting, 1 under tongue every 4 hours. Tomorrow you should schedule an appointment with the primary care provider that was recommended. It is very important that you arrange care with a primary care provider so that you can get this sorted out. It would help if you would stop drinking alcohol completely. It would also help if you quit smoking cigarettes. If you have persistent severe abdominal pain, ongoing vomiting, blood in your vomit or blood in your stool, feel lightheaded or dizzy, have ongoing shortness of breath, or developed chest pain--you should return to the emergency department. Referrals: Gale Dawn MD [Medical Doctor] - As per Instructions Prescriptions: Ondansetron Odt [Zofran Odt 4 mg (RX)] 4 mg PO Q4 PRN #10 tab PRN Reason: nausea
[2017-03-28] MEDS ORDERED: NS 1,000 ML IV ONE (16:17)
[2017-03-28 16:40] LABS: % IMMATURE GRANULYOCYTES 0.2 % (0.0-1.1); ABSOLUTE IMMATURE GRANULOCYTES 0.01 10^3/uL (0.00-0.10); ADD DIFF? NO; ADD MORPH? NO; ADD SCAN? NO; ATYPICAL LYMPHOCYTE FLAG 30 (0-99); FRAGMENT RBC FLAG 40 (0-99); HEMATOCRIT 39.9 % (40.0-51.0); HEMOGLOBIN 13.3 g/dL (13.7-17.5); LEFT SHIFT FLG 0 (0-99); LIPEMIA HEMOLYSIS FLAG 80 (0-99); MEAN CELL HEMOGLOBIN 26.5 pg (27.9-34.1); MEAN CELL HEMOGLOBIN CONCENTR. 33.3 g/dL (32.4-36.7); MEAN CELL VOLUME 79.6 fL (81.5-99.8); MEAN PLATELET VOLUME 10.5 fL (8.7-11.7); PLATELET CLUMPS FLAG 0 (0-99); PLATELET COUNT 345 10^3/uL (150-400); RED BLOOD CELL COUNT 5.01 10^6/uL (4.40-6.38); RED CELL DISTRIBUTION WIDTH 19.7 % (11.5-15.2)
[2017-03-28 16:55] LABS: ALANINE AMINOTRANSFERASE 76 IU/L (21-72); ALBUMIN 4.6 g/dL (3.5-5.0); ALKALINE PHOSPHATASE 81 IU/L (38-126); ANION GAP 16 mEq/L (8-16); ASPARTATE AMINOTRANSFERASE 58 IU/L (17-59); BILIRUBIN,TOTAL 0.6 mg/dL (0.1-1.4); BILIRUBIN-CONJUGATED 0.3 mg/dL (0.0-0.5); BILIRUBIN-UNCONJUGATED 0.3 mg/dL (0.0-1.1); CALCIUM 11.1 mg/dL (8.5-10.4); CARBON DIOXIDE 22 mEq/l (22-31); CHLORIDE 99 mEq/L (97-110); CREATININE 0.7 mg/dL (0.7-1.3); GLOMERULAR FILTRATION RATE > 60; GLUCOSE 103 mg/dL (70-100); POTASSIUM 3.6 mEq/L (3.5-5.2); SODIUM 137 mEq/L (134-144); TOTAL PROTEIN 8.1 g/dL (6.3-8.2)
[2017-03-28 17:44] VITALS: BP 126/82; PULSE 78; O2SAT 96
== END 2017-03-28 17:43 | disposition home or self-care (01) ==
LOC: CED 15:08
DX: K29.00 Acute gastritis without bleeding (principal); F17.210 Nicotine dependence, cigarettes, uncomplicated; E86.9 Volume depletion, unspecified
CPT/HCPCS: 80048-PO; 80076-PO; 83690-PO; 84100-PO; 85025-PO

== ENCOUNTER 2017-05-29 21:00 | Observation (INO) | payer SELFPAY ==
[2017-05-29] MEDS ORDERED: NS 1,000 ML IV ONE ×3 (21:14→23:24)
[2017-05-29] MEDS ORDERED: ONDANSETRON 4 MG/2 ML VIAL IVP ONE (21:15)
[2017-05-29 21:26] LABS: % IMMATURE GRANULYOCYTES 0.4 % (0.0-1.1); ABSOLUTE IMMATURE GRANULOCYTES 0.04 10^3/uL (0.00-0.10); ADD DIFF? NO; ADD MORPH? YES; ADD SCAN? NO; ATYPICAL LYMPHOCYTE FLAG 10 (0-99); FRAGMENT RBC FLAG 40 (0-99); HEMATOCRIT 35.7 % (40.0-51.0); HEMOGLOBIN 11.5 g/dL (13.7-17.5); LEFT SHIFT FLG 0 (0-99); LIPEMIA HEMOLYSIS FLAG 80 (0-99); MEAN CELL HEMOGLOBIN 26.4 pg (27.9-34.1); MEAN CELL HEMOGLOBIN CONCENTR. 32.2 g/dL (32.4-36.7); MEAN CELL VOLUME 82.1 fL (81.5-99.8); MEAN PLATELET VOLUME 9.9 fL (8.7-11.7); PLATELET CLUMPS FLAG 10 (0-99); PLATELET COUNT 308 10^3/uL (150-400); RED BLOOD CELL COUNT 4.35 10^6/uL (4.40-6.38); RED CELL DISTRIBUTION WIDTH 20.4 % (11.5-15.2)
[2017-05-29 21:34] LABS: ECHINOCYTES 1+; HYPOCHROMIA 1+; MICROCYTES 1+; PLATELET ESTIMATE ADEQUATE (ADEQ); TARGET CELLS 1+
[2017-05-29 21:37] LABS: ANION GAP 22 mEq/L (8-16); CALCIUM 10.5 mg/dL (8.5-10.4); CARBON DIOXIDE 9 mEq/l (22-31); CHLORIDE 112 mEq/L (97-110); CREATININE 0.9 mg/dL (0.7-1.3); GLOMERULAR FILTRATION RATE > 60; GLUCOSE 65 mg/dL (70-100); POTASSIUM 4.1 mEq/L (3.5-5.2)
[2017-05-29 21:39] LABS: SODIUM 143 mEq/L (134-144)
[2017-05-29 21:44] LABS: ALBUMIN 4.9 g/dL (3.5-5.0); BILIRUBIN,TOTAL 0.5 mg/dL (0.1-1.4); BILIRUBIN-CONJUGATED 0.5 mg/dL (0.0-0.5); TOTAL PROTEIN 8.2 g/dL (6.3-8.2)
--- NOTE | 2017-05-29 22:16 | EDPHY ---
H & P Stated Complaint: N/V Time Seen by Provider: 05/29/17 21:19 HPI/ROS: This patient presents with vomiting that he reports started 2 hours prior to arrival associated with mid abdomen pain-periumbilical in location the he reports occurred simultaneously with vomiting. He has vomited several times. He reports having had 4 beers prior to the onset of the pain in the vomiting. He also admits to smoking marijuana all day. He came in due to the ongoing nausea and vomiting. Reports the pain is mild to moderate and crampy. ROS: No fevers or chills. No other constitutional symptoms. HEENT: No complaints new line pulmonary: He reports no shortness of breath. Pulmonary: No shortness of breath. No cough. Cardiovascular: He denies chest pain. No heart palpitations. GI: No distention. Otherwise as per HPI. : Denies any urinary symptoms or testicle pain or swelling. Musculoskeletal: No back pain. He reports chronic foot pain recently for the attributes to a bunion. Because this he has been taking Tylenol typically 2 tabs 4 times a day. Endocrine: No complaints Psychiatric: No acute complaints. Completely symptoms otherwise negative. Source: Patient Exam Limitations: Intoxication - Personal History Current Tetanus/Diphtheria Vaccine: Unsure Tetanus Vaccine Date: last 10 years - Medical/Surgical History Hx Asthma: No Hx Chronic Respiratory Disease: No Hx Diabetes: No Hx Cardiac Disease: No Hx Renal Disease: No Hx Cirrhosis: No Hx Alcoholism: Yes Hx HIV/AIDS: No Hx Splenectomy or Spleen Trauma: No Other PMH: Alcoholism, cyclic vomiting, - Social History Smoking Status: Current every day smoker Alcohol Use: Heavy Drug Use: Marijuana - Physical Exam Exam: Vital signs normal except for pulse of 106. General Appearance: Alert, no distress. Eyes: Pupils equal and round no pallor or injection. ENT, Mouth: Mucous membranes moist. Respiratory: There are no retractions, lungs are clear to auscultation. Cardiovascular: Borderline tachycardia with no murmur gallop rub. Gastrointestinal: Abdomen is soft and nontender, no masses, bowel sounds normal. Neurological: Patient is mildly somnolent but easily arousable. There is some alcohol on his breath. Cranial nerves 2-12 grossly intact. He maintains 5/5 strength throughout all extremities. Skin: Warm and dry, no rashes. Musculoskeletal: Neck is supple nontender. Extremities are symmetrical, full range of motion. Psychiatric: Mood consistent with mild intoxication. Resting most the time and slightly belligerent but easily calmed. DIFFERENTIAL DIAGNOSIS: After history and physical exam differential diagnosis was considered for alcohol gastritis, alcohol intoxication,:co-ingestions, pneumonia, cardiac ischemic event Constitutional: Initial Vital Signs Heart Rate 106 H 05/29/17 21:00 Respiratory Rate 16 05/29/17 21:00 Blood Pressure 119/73 05/29/17 21:00 O2 Sat (%) 94 05/29/17 21:00 O2 Delivery Mode Room Air Allergies/Adverse Reactions: No Known Allergies Allergy (Verified 03/28/17 15:15) Home Medications: Medication Instructions Recorded Acetaminophen [Tylenol ES 500 mg 1,000 mg PO DAILY 05/30/17 (*)] Albuterol [Ventolin Hfa Inhaler] 1 - 2 puffs IH Q4 PRN 05/30/17 Medical Decision Making - Diagnostics EKG Interpretation: 12 lead EKG performed shortly after arrival reveals sinus rhythm Intervals: Normal throughout ST segments: Normal throughout Overall assessment: Normal EKG. For complete read please refer to trace master. Imaging Results: Chest x-ray: Normal by my interpretation the exception of mild airway disease. Imaging: I viewed and interpreted images myself ED Course/Re-evaluation: IV normal saline bolus Zofran with resolution of nausea vomiting Breathalyzer alcohol of 0.108 His labs are notable for significant acidosis with a bicarb of 9. Venous lactate is sent is elevated 6. Discussion: I think this patient simply has severe dehydration from cyclic vomiting associated with daily marijuana use and today alcohol intoxication in addition. He has a benign belly exam and labs reveal no evidence of significant hepatitis, pancreatitis or biliary obstruction. Minimally elevated white count just over 10,000. Review of symptoms reveals no other findings that suggest significant infectious etiology. I do not think he septic. However he does warrant aggressive hydration and a recheck when his mental status has resolved post intoxication. In review of symptoms he mentions daily Tylenol use for chronic foot pain. Given this I sent a Tylenol level that is pending but given normal or near normal LFTs doubt he has a significant Tylenol toxicity. EKG reveals no evidence of ischemia or conduction abnormalities Chest x-ray-no pneumonia Will proceed with aggressive IV hydration and plan for observation. I spoke with Dr. Tillman, hospitalist at [facility] accepts the patient for admission to [facility] - surg - Data Points Laboratory Results: Laboratory Results 05/29/17 21:15 05/29/17 21:15 Medications Given: Acetaminophen (Tylenol) 650 mg PO Q4HRS PRN PRN Reason: Pain, Mild/Fever, Can Take PO Stop: 11/26/17 02:16 Last Admin: 05/30/17 04:34 Dose: 650 mg Enoxaparin Sodium (Lovenox) 40 mg SC DAILY SREE Stop: 11/26/17 08:59 Last Admin: 05/31/17 08:48 Dose: 40 mg Folic Acid (Folic Acid) 1 mg PO DAILY SREE Stop: 11/26/17 08:59 Last Admin: 05/31/17 08:47 Dose: 1 mg Pantoprazole Sodium 40 mg/ (Sodium Chloride) 100 mls @ 200 mls/hr IV BID SREE Stop: 11/27/17 11:14 Last Admin: 05/31/17 21:31 Dose: 100 mls Dextrose/Lactated Ringer's (D5w Lr) 1,000 mls @ 125 mls/hr IV CONT SREE Stop: 11/27/17 11:14 Last Admin: 05/31/17 12:51 Dose: 1,000 mls Lorazepam (Ativan) 0.5 - 1 mg PO Q8HRS PRN PRN Reason: Anxiety, Able to Take PO Stop: 11/26/17 02:16 Last Admin: 05/31/17 08:46 Dose: 0.5 mg Multivitamins (Tab-A-Jamin) 1 each PO DAILY SREE Stop: 11/26/17 08:59 Last Admin: 05/31/17 08:47 Dose: 1 each Ondansetron HCl (Zofran) 4 mg IVP Q4HRS PRN PRN Reason: Nausea/Vomiting, Can't Take PO Stop: 11/26/17 02:16 Last Admin: 05/31/17 09:02 Dose: 4 mg Oxycodone HCl (Oxycodone Ir) 5 - 10 mg PO Q6H PRN PRN Reason: Pain, Severe Able to Take PO Stop: 06/09/17 02:16 Last Admin: 05/31/17 21:44 Dose: 5 mg Thiamine HCl (Vitamin B-1) 100 mg PO DAILY SREE Stop: 11/26/17 08:59 Last Admin: 05/31/17 08:47 Dose: 100 mg Discontinued Medications Sodium Chloride (Ns) 1,000 mls @ 0 mls/hr IV EDNOW ONE; Wide Open PRN Reason: Protocol Stop: 05/29/17 21:15 Last Admin: 05/29/17 21:29 Dose: 1,000 mls Sodium Chloride (Ns) 1,000 mls @ 0 mls/hr IV ONCE ONE PRN Reason: Wide Open Stop: 05/29/17 22:50 Last Admin: 05/29/17 22:00 Dose: 1,000 mls Sodium Chloride (Ns) 1,000 mls @ 0 mls/hr IV EDNOW ONE; Wide Open PRN Reason: Protocol Stop: 05/29/17 23:25 Last Admin: 05/29/17 23:29 Dose: 1,000 mls Sodium Chloride (Ns) 1,000 mls @ 150 mls/hr IV CONT SREE Stop: 11/26/17 02:29 Last Admin: 05/30/17 02:38 Dose: 1,000 mls Sodium Bicarbonate 150 meq/ (Dextrose) 1,150 mls @ 150 mls/hr IV CONT SREE Stop: 11/26/17 06:14 Last Admin: 05/30/17 21:19 Dose: 1,150 mls Sodium Chloride (Ns) 1,000 mls @ 75 mls/hr IV CONT SREE Stop: 11/27/17 05:44 Last Admin: 05/31/17 08:57 Dose: 1,000 mls Potassium Chloride (Potassium Cl 10 Meq (Premix)) 100 mls @ 100 mls/hr IV Q1H SREE Stop: 05/31/17 13:29 Last Admin: 05/31/17 17:36 Dose: 100 mls Influenza Virus Vaccine Quadrival (Fluarix Quad [id number]) 0.5 ml IM .ONCE ONE Stop: 05/31/17 06:13 Last Admin: 05/31/17 06:27 Dose: 0.5 ml Ondansetron HCl (Zofran) 4 mg IVP EDNOW ONE Stop: 05/29/17 21:16 Last Admin: 05/29/17 21:32 Dose: 4 mg Pneumococcal Polyvalent Vaccine (Pneumovax 23) 0.5 ml IM .ONCE ONE Stop: 05/31/17 06:13 Last Admin: 05/31/17 06:26 Dose: 0.5 ml Potassium Chloride (Klor-Con) 10 - 40 meq PO ONCE ONE PRN Reason: Protocol Stop: 05/31/17 07:11 Last Admin: 05/31/17 10:28 Dose: Not Given Potassium Chloride (Klor-Con) 10 - 40 meq PO ONCE ONE PRN Reason: Protocol Stop: 05/31/17 21:25 Last Admin: 05/31/17 21:48 Dose: Not Given Potassium Chloride (Potassium Chloride Oral Liquid) 10 - 40 meq PO ONCE ONE PRN Reason: Protocol Stop: 05/31/17 21:46 Last Admin: 05/31/17 21:44 Dose: 30 meq Departure - Departure Disposition: [facility] Acute Clinical Impression: Dehydration, Lactic acidosis Cyclical vomiting Qualifiers: Vomiting Intractability: non-intractable Nausea presence: with nausea Qualified Code(s): G43.A0 - Cyclical vomiting, not intractable Alcohol intoxication Qualifiers: Complication of substance-induced condition: uncomplicated Qualified Code(s): F10.920 - Alcohol use, unspecified with intoxication, uncomplicated Condition: Fair
--- NOTE | 2017-05-29 22:26 | CPEKG ---
Heart Rate: 101 RR Interval: 594 P-R Interval: 152 QRSD Interval: 80 QT Interval: 344 QTC Interval: 446 P [place]: 70 QRS [place]: 20 T Wave [place]: 45 EKG Severity - OTHERWISE NORMAL ECG - EKG Impression: SINUS TACHYCARDIA Electronically Signed By: Ubaldo Gomez 29-May-2017 22:26:25
[2017-05-29 22:54] LABS: COLOR YELLOW; LEUKOCYTE ESTERASE,URINE NEGATIVE (NEGATIVE); NITRITE,URINE NEGATIVE (NEGATIVE); PH,URINE 5.5 (5.0-7.5)
[2017-05-29 23:08] LABS: MUCUS 3+ /lpf (NONE-1+)
[2017-05-29 23:12] LABS: RBC,URINE 0-1 /hpf (0-3); WBC,URINE 0-1 /hpf (0-3)
[2017-05-30] MEDS ORDERED: PROMETHAZINE HCL 25 MG/ML INJ IVP PRN (02:17)
[2017-05-30] MEDS ORDERED: diphenhydrAMINE 25 MG CAP PO PRN (02:17)
[2017-05-30] MEDS ORDERED: ACETAMINOPHEN 325 MG TAB PO PRN (02:17)
[2017-05-30] MEDS ORDERED: NS 1,000 ML IV SCH (02:30)
[2017-05-30] MEDS: LORazepam 0.5 MG TAB PO PRN (02:40)
[2017-05-30] MEDS ORDERED: D50W 25 GM/50 ML SYR IVP PRN (04:13)
[2017-05-30] MEDS ORDERED: D10W 250 ML PRN HYPOGLYCEMIA IV (04:30)
[2017-05-30] MEDS: ONDANSETRON 4 MG/2 ML VIAL IVP PRN (04:35)
[2017-05-30 04:44] LABS: PCO2 VENOUS 24 mmHg (40-44); PH VENOUS BLOOD 7.23 (7.31-7.42); PO2 VENOUS 143 mmHg (35-40); TCO2 VENOUS 10 mEq/L (23-27); VEN MEASURED OXYGEN SATURATION 98 % (65-75)
[2017-05-30 04:57] LABS: ALANINE AMINOTRANSFERASE 62 IU/L (21-72); ALBUMIN 4.4 g/dL (3.5-5.0); ALKALINE PHOSPHATASE 101 IU/L (38-126); ANION GAP 22 mEq/L (8-16); ASPARTATE AMINOTRANSFERASE 72 IU/L (17-59); BILIRUBIN,TOTAL 0.7 mg/dL (0.1-1.4); CALCIUM 9.9 mg/dL (8.5-10.4); CHLORIDE 112 mEq/L (97-110); CREATININE 0.8 mg/dL (0.7-1.3); GLOMERULAR FILTRATION RATE > 60; GLUCOSE 71 mg/dL (70-100); MAGNESIUM 1.8 mg/dL (1.6-2.3); POTASSIUM 4.8 mEq/L (3.5-5.2); SODIUM 143 mEq/L (134-144); TOTAL PROTEIN 7.9 g/dL (6.3-8.2)
[2017-05-30 05:06] LABS: % IMMATURE GRANULYOCYTES 0.5 % (0.0-1.1); ABSOLUTE IMMATURE GRANULOCYTES 0.05 10^3/uL (0.00-0.10); ADD DIFF? NO; ADD MORPH? YES; ADD SCAN? NO; ATYPICAL LYMPHOCYTE FLAG 0 (0-99); FRAGMENT RBC FLAG 40 (0-99); HEMATOCRIT 33.6 % (40.0-51.0); HEMOGLOBIN 10.4 g/dL (13.7-17.5); LEFT SHIFT FLG 0 (0-99); LIPEMIA HEMOLYSIS FLAG 80 (0-99); MEAN CELL HEMOGLOBIN 26.7 pg (27.9-34.1); MEAN CELL VOLUME 86.4 fL (81.5-99.8); MEAN PLATELET VOLUME 9.8 fL (8.7-11.7); PLATELET CLUMPS FLAG 0 (0-99); PLATELET COUNT 238 10^3/uL (150-400); RED BLOOD CELL COUNT 3.89 10^6/uL (4.40-6.38)
--- NOTE | 2017-05-30 05:28 | GHP ---
[f rep st] HISTORY AND PHYSICAL DATE OF ADMISSION: 05/29/2017 SOURCE: The patient provides history, is a fair historian. EMR was also reviewed. Case discussed [facility] ED provider before transfer for [facility] – [place]. CHIEF COMPLAINT: Nausea, vomiting, abdominal pain. HISTORY OF PRESENT ILLNESS: This is a 52-year-old gentleman with a past medical history significant for alcohol abuse, tobacco dependence, and THC abuse who presents to the emergency department today [facility] complaints of periumbilical, upper abdominal cramping pain, ongoing for several hours prior to ar rival in the emergency department. Patient with known history of cyclic vomiting appearing syndrome, likely related to cannabis hyperemesis syndrome. Patient reports that he has had multiple episodes of nausea and vomiting that have been uncontrolled. No diarrhea. No fevers, chills reported. The p atient reports that his son also has similar symptoms, but he also partakes in a high quantity of can nabis. The patient denies any hematemesis. No melena or hematochezia. He also has a history of RIAZ D with, per chart, remote history of GI bleeding. Patient denies any blood in the emesis or stool. He reports he is compliant with his omeprazole. The patient also reports that he drank 4 beers befor e onset of symptoms. He does have a known history of alcohol abuse and had been trying to titrate do wn to approximately 2-3 beers daily. REVIEW OF SYSTEMS: GENERAL: No fevers, chills, or sweats. SKIN: No rashes sores. ENT: Patient d enies any rhinorrhea, congestion, or sore throat. CV: No chest pain or palpitations. RESPIRATORY: The patient is reporting a little bit of shortness of breath which is new, no cough. ABDOMEN: See H PI. : No dysuria or hematuria. MUSCULOSKELETAL: Patient is complaining of pain in his feet. Ot herwise, no myalgias or joint pain. NEURO: Patient is complaining of a little bit of frontal headac he. No acute changes in vision. No numbness or tingling. Remainder of systems negative except as noted above. ALLERGIES: No known drug allergies. HOME MEDICATIONS: Omeprazole and Tylenol p.r.n. The patient reports that he takes 2 tabs of Tylenol in the morning for his feet before work, but does not over use. PAST MEDICAL HISTORY: Significant for cannabis hyperemesis syndrome, alcohol dependence. History of GI bleed, hiatal hernia, tobacco abuse, GERD. PAST SURGICAL HISTORY: Patient denies. FAMILY HISTORY: Patient denies any GI issues. SOCIAL HISTORY: The patient is , lives with his and family. He does smoke 1 pack per da y of tobacco. He also drinks 2-3 beers more recently, decreased this down from much higher quantity. The patient reports using high quantities of cannabis on a daily basis. He denies any other illici t drugs. COR STATUS: Full. The patient without advance directives, but wants his , Steph Jade, to act as proxy if needed or his adult children. PHYSICAL EXAMINATION: VITAL SIGNS: Upon [facility] [place] [facility], blood pressure 119/73, heart rate 106, respiratory rate 16, O2 saturation 94% on room air, temperature 36.4. Current vitals: Blood pressure 116/63, he art rate is 93, respiratory rate 18, saturating 97% on room air, temperature is 36.5. GENERAL: No a cute distress. Patient is fast asleep in bed. It takes a little time to wake him up. He did receiv e some Ativan prior to my visit. He does answer questions and is cooperative. HEENT: Head normocep halic, atraumatic. EYES: Extraocular muscles grossly intact. No scleral icterus or conjunctival in jection. Pupils are equal and round. ENT: Mucous membranes appear dry. No nasal discharge. Denti tion intact. NECK: Supple. Trachea midline. CV: Slightly tachycardic with slightly distant heart sounds with regular rhythm. No murmurs, rubs, or gallops appreciated. RESPIRATORY: Lungs clear to auscultation bilaterally. The patient with decreased inspiratory effort. ABDOMEN: Soft with compl aints of tenderness to palpation in the periumbilical region. No rebound, guarding. : No Perez i n place. No suprapubic tenderness to palpation. EXTREMITIES: Patient without any cyanosis, clubbin g, or edema bilaterally. 1+ pedal pulses bilaterally. NEUROLOGIC: Grossly nonfocal. No facial glendy oping. Patient is a little somnolent, but cooperative. Moves all extremities. Able to change posit ion in bed independently. PSYCHIATRIC: Affect is rather flat, but patient is cooperative. LABORATORY STUDIES: WBC is 10.7, hemoglobin and hematocrit 11.5 and 35.7, MCV 82.1, platelet count i s 308, neutrophil percent 76.2. Patient with 1+ hypochromasia, 1+ microcytic cells, 1+ target cells, 1+ . VBG: Lactic acid 6.1. Sodium is 143, potassium 4.1, chloride 112, CO2 is 9, anion g ap 22, BUN 16, creatinine 0.9, GFR greater than 60, glucose 65, calcium 10.5. Total bilirubin 0.5, A LT 76, AST is 84, alkaline phosphatase is 112, total protein 8.2, albumin 4.9, lipase is 106. Urine specific gravity is greater than 1.030 with a pH of 5.5, trace protein, 2+ ketones, trace blood, nega tive nitrites and leuk esterase, 3+ mucus, otherwise negative. Acetaminophen is less than 10. EKG, reviewed by myself, shows sinus tachycardia in the 100s. No acute ST changes. QTc is 446. Chest x-ray image and report reviewed by myself showing mild bronchitis, no other findings for acute cardiopulmonary abnormality. DISCUSSION AND DECISION-MAKING: This is a 52-year-old gentleman who presents with intractable nausea , vomiting, abdominal pain. 1. Lactic acidosis, likely secondary to significant dehydration in the setting of nausea and vomitin g. Lactate was greater than 6. He has received several liters of IV fluid. Will continue with aggr essive IV fluid hydration. Will repeat a lactate and monitor VBGs. The patient does have a previous history of alcohol ketosis which may also be contributing slightly. However, patient reports drinki ng 4 beers. There was no initial alcohol level that was obtained in the emergency department. The p atient's nausea and vomiting have been improved. 2. Intractable nausea and vomiting. This is likely secondary to cannabis hyperemesis syndrome versu s a viral illness. The patient has responded appropriately to Zofran. Will continue with antiemetic therapy. Decrease or cessation of THC is recommended given recurrence of symptoms. 3. Alcohol dependence. The patient reports drinking 4 beers prior to arrival. Will monitor for any signs of withdrawal over the next several hours. 4. Anemia, likely related to alcohol dependence. Patient with some microcytic anemia however, and d enies any gastrointestinal bleeding. He should have this further evaluated with PCP after discharge. 5. Hypoglycemia. Patient has been able to tolerate some sips of rowena aislinn. Will monitor blood sug ars at this time and correct if needed. 6. Transaminitis, likely related to alcohol dependence. We will continue to monitor LFTs. 7. Hypercalcemia, likely related to dehydration and so will plan to repeat in the morning. 8. Fluid, electrolyte, nutrition. Aggressive IV fluids on the floor. Electrolyte replacement p.r.n . The patient's diet advanced as tolerated. 9. Prophylaxis. SCDs and Lovenox. 10. COR status is full. DISPOSITION: Patient will be admitted to observation on the medical floor in anticipation for rapid correction of his lactic acidosis. Will reassess tomorrow with repeated lactate and renal labs. /[id number]/MODL
[2017-05-30 05:29] LABS: CARBON DIOXIDE 9 mEq/l (22-31)
[2017-05-30 05:49] LABS: MICROCYTES 1+; PLATELET ESTIMATE ADEQUATE (ADEQ)
[2017-05-30] MEDS: SODIUM BICARBONATE 150 MEQ in D5W 1,000 ML IV SCH ×2 (06:29→21:19)
--- NOTE | 2017-05-30 09:20 | HOSPPROG ---
Hospitalist Progress Note Assessment/Plan: 52-year-old male with benign past medical history except for recurrent abdominal pain nausea vomiting presents with same. His last admission to urgent care was in March at which time he was treated with antiemetics and IV fluids and sent home. His symptoms started last night acutely with diffuse abdominal pain and nausea vomiting. His last BM was yesterday morning. # abdominal pain associated with anion gap lactic acidosis. Possible cyclic vomiting syndrome although he does have some significant lab abnormalities in looks quite uncomfortable currently. He does have a mild leukocytosis but no other lab abnormalities. His history is significant for alcohol and marijuana use. He denies any other recreational drug use. * Will check CT scan given the significant acidosis. * Check urine tox screen * Continue aggressive supportive care with IV fluids * Follow up electrolytes and acidosis if still abnormal at 11 will get a blood gas. # alcohol use/abuse * Watch for signs of withdrawal * Electrolyte protocol and a multivitamin thiamine folate # marijuana use Subjective: Patient new to me and chart reviewed. Quite uncomfortable today. Unable to take in any p. o. and has significant abdominal pain no significant change in his anion gap after aggressive hydration. Objective: Vital Signs Temp Pulse Resp BP Pulse Ox 36.3 C 88 16 141/82 H 100 05/30/17 08:00 05/30/17 08:00 05/30/17 08:00 05/30/17 08:00 05/30/17 08:00 Laboratory Results 05/30/17 04:32 05/30/17 04:32 05/29/17 05/30/17 05/31/17 05:59 05:59 05:59 Intake Total 3200 Output Total 600 250 Balance 2600 -250 - Physical Exam Constitutional: uncomfortable Eyes: PERRL, anicteric sclera, EOMI Ears, Nose, Mouth, Throat: moist mucous membranes Cardiovascular: no murmur, rub, or gallop, tachycardia Respiratory: no respiratory distress, clear to auscultation Gastrointestinal: no palpable masses, tenderness (Diffusely, mild guarding primarily in the epigastric area.), guarding (Voluntary), No normoactive bowel sounds (Decreased), No rebound, No distension Genitourinary: no bladder fullness Skin: warm, normal color Neurologic: AAOx3 Psychiatric: anxious, other (Poor eye contact, looks uncomfortable) ICD10 Worksheet Patient Problems: Problems Problem Status Onset Alcohol intoxication Acute Cyclical vomiting Acute Dehydration Acute Lactic acidosis Acute Gastritis Acute Vomiting Acute
[2017-05-30] MEDS: FOLIC ACID 1 MG TAB PO SCH (09:23)
[2017-05-30] MEDS: THIAMINE HCL 100 MG TAB PO SCH (09:23)
[2017-05-30] MEDS: ENOXAPARIN 40 MG/0.4 ML SYR SC SCH (09:23)
[2017-05-30] MEDS: MULTIVITAMINS 1 EACH TAB PO SCH (09:23)
[2017-05-30] MEDS: oxyCODONE IR 5 MG TAB PO PRN ×2 (09:33→20:16)
[2017-05-30 11:58] LABS: ANION GAP 16 mEq/L (8-16); CALCIUM 9.9 mg/dL (8.5-10.4); CARBON DIOXIDE 16 mEq/l (22-31); CHLORIDE 105 mEq/L (97-110); CREATININE 0.8 mg/dL (0.7-1.3); GLOMERULAR FILTRATION RATE > 60; GLUCOSE 112 mg/dL (70-100); POTASSIUM 4.4 mEq/L (3.5-5.2); SODIUM 137 mEq/L (134-144)
[2017-05-30] MEDS ORDERED: IOPAMIDOL (ISOVUE-300) 100 ML BTL ONE (11:59)
[2017-05-30] MEDS ORDERED: ALBUTEROL 200 PUFFS/18 GM MDI IH PRN (16:15)
--- NOTE | 2017-05-30 16:22 | ASMTCMCOM ---
CM Note CM Note Notes: Pt admitted with cyclic vomiting, etoh intoxication, dehydration. Hx etoh, marijuana use daily. Currently receiving fluids. Self pay, referred to [facility]. Anticipate d/c with no CM needs when medically cleared. May benefit from resources for etoh and treatment. Date Signed: 05/30/2017 04:22 PM Electronically Signed By:LAUREN Jung
[2017-05-31] MEDS: oxyCODONE IR 5 MG TAB PO PRN ×3 (03:26→21:44)
[2017-05-31 04:44] LABS: % IMMATURE GRANULYOCYTES 0.3 % (0.0-1.1); ABSOLUTE IMMATURE GRANULOCYTES 0.02 10^3/uL (0.00-0.10); ADD DIFF? NO; ADD MORPH? NO; ADD SCAN? NO; ATYPICAL LYMPHOCYTE FLAG 10 (0-99); FRAGMENT RBC FLAG 40 (0-99); HEMATOCRIT 31.8 % (40.0-51.0); HEMOGLOBIN 10.7 g/dL (13.7-17.5); LEFT SHIFT FLG 0 (0-99); LIPEMIA HEMOLYSIS FLAG 80 (0-99); MEAN CELL HEMOGLOBIN 26.5 pg (27.9-34.1); MEAN CELL HEMOGLOBIN CONCENTR. 33.6 g/dL (32.4-36.7); MEAN CELL VOLUME 78.7 fL (81.5-99.8); MEAN PLATELET VOLUME 9.7 fL (8.7-11.7); PLATELET CLUMPS FLAG 0 (0-99); PLATELET COUNT 243 10^3/uL (150-400); RED BLOOD CELL COUNT 4.04 10^6/uL (4.40-6.38); RED CELL DISTRIBUTION WIDTH 19.3 % (11.5-15.2)
[2017-05-31 04:59] LABS: ALANINE AMINOTRANSFERASE 55 IU/L (21-72); ALBUMIN 3.6 g/dL (3.5-5.0); ALKALINE PHOSPHATASE 79 IU/L (38-126); ANION GAP 9 mEq/L (8-16); ASPARTATE AMINOTRANSFERASE 45 IU/L (17-59); BILIRUBIN,TOTAL 0.8 mg/dL (0.1-1.4); CALCIUM 10.2 mg/dL (8.5-10.4); CARBON DIOXIDE 30 mEq/l (22-31); CHLORIDE 94 mEq/L (97-110); CREATININE 0.8 mg/dL (0.7-1.3); GLOMERULAR FILTRATION RATE > 60; GLUCOSE 105 mg/dL (70-100); POTASSIUM 3.3 mEq/L (3.5-5.2); SODIUM 133 mEq/L (134-144); TOTAL PROTEIN 6.8 g/dL (6.3-8.2)
[2017-05-31] MEDS ORDERED: PROTOCOL POTASSIUM 1 DOSE MISC PRN (05:41)
[2017-05-31] MEDS ORDERED: PROTOCOL K PHOSPHATE 1 DOSE IV PRN (05:41)
[2017-05-31] MEDS ORDERED: PROTOCOL MAGNESIUM 1 DOSE IV PRN (05:41)
[2017-05-31] MEDS ORDERED: NS 1,000 ML IV SCH (05:45)
[2017-05-31] MEDS ORDERED: FLU VACC QS 2017-18 (3YR+)/PF 0.5 ML SYR (FLUARIX QUAD) IM ONE (06:12)
[2017-05-31] MEDS ORDERED: PNEUMOCOCCAL 0.5ML VACCINE VIAL IM ONE (06:12)
[2017-05-31 06:31] LABS: MAGNESIUM 1.9 mg/dL (1.6-2.3)
[2017-05-31] MEDS: LORazepam 0.5 MG TAB PO PRN (08:46)
[2017-05-31] MEDS: MULTIVITAMINS 1 EACH TAB PO SCH (08:47)
[2017-05-31] MEDS: POTASSIUM CL 10 MEQ TAB PO ONE ×2 (08:47→10:28)
[2017-05-31] MEDS: THIAMINE HCL 100 MG TAB PO SCH (08:47)
[2017-05-31] MEDS: FOLIC ACID 1 MG TAB PO SCH (08:47)
[2017-05-31] MEDS: ENOXAPARIN 40 MG/0.4 ML SYR SC SCH (08:48)
[2017-05-31] MEDS: ONDANSETRON 4 MG/2 ML VIAL IVP PRN (09:02)
--- NOTE | 2017-05-31 09:40 | ASMTCMCOM ---
CM Note CM Note Notes: CM met w/ pt to provide substance prevention resources. Pt reports that he is not interested at this time. CM available for changes. Date Signed: 05/31/2017 09:39 AM Electronically Signed By:CARLINE Spring
[2017-05-31] MEDS: POTASSIUM Cl (KCl) 100 ML IV SCH ×3 (10:24→17:36)
--- NOTE | 2017-05-31 11:13 | HOSPPROG ---
Hospitalist Progress Note Assessment/Plan: 52-year-old male with benign past medical history except for recurrent abdominal pain nausea vomiting presents with same. His last admission to urgent care was in March at which time he was treated with antiemetics and IV fluids and sent home. His symptoms started last night acutely with diffuse abdominal pain and nausea vomiting. His last BM was yesterday morning. # abdominal pain associated with anion gap lactic acidosis. Possible cyclic vomiting syndrome although he does have some significant lab abnormalities in looks quite uncomfortable currently. He does have a mild leukocytosis but no other lab abnormalities. His history is significant for alcohol and marijuana use. He denies any other recreational drug use. * CT scan unremarkable * Continues to have nausea vomiting, unable to tolerate p.o. today. * Abdominal pain slightly improved however persistent * Discussed with GI who will consider endoscopy this admission given his ongoing symptoms. This is not been done previously as far as I know * At [facility] # anion gap acidosis on admission, resolved with hydration. Elevated lactate on admission as likely cause * Follow acidosis # alcohol use/abuse * Watch for signs of withdrawal * Electrolyte protocol and a multivitamin thiamine folate # marijuana use Subjective: Ongoing abdominal pain he says it is slightly better but is on a able to tolerate p.o. except for sips Objective: Vital Signs Temp Pulse Resp BP Pulse Ox 36.6 C 59 L 14 104/62 98 05/31/17 08:00 05/31/17 08:00 05/31/17 08:00 05/31/17 08:00 05/31/17 08:00 Laboratory Results 05/31/17 04:14 05/31/17 04:14 05/30/17 05/31/17 06/01/17 05:59 05:59 05:59 Intake Total 3200 75 Output Total 600 1500 Balance 2600 -1425 - Physical Exam Constitutional: uncomfortable Eyes: PERRL, EOMI Ears, Nose, Mouth, Throat: moist mucous membranes Cardiovascular: regular rate and rhythym Respiratory: no respiratory distress, clear to auscultation Gastrointestinal: tenderness (Diffuse), guarding (Voluntary), distension, No normoactive bowel sounds (Decrease) Genitourinary: no bladder fullness Skin: warm Musculoskeletal: full muscle strength Neurologic: AAOx3 Psychiatric: interacting appropriately, not anxious, not encephalopathic ICD10 Worksheet Patient Problems: Problems Problem Status Onset Vomiting Acute Dehydration Acute Gastritis Acute Cyclical vomiting Acute Alcohol intoxication Acute Lactic acidosis Acute
[2017-05-31 11:38] LABS: SALICYLATE < 1.0 mg/dL (2.0-20.0)
--- NOTE | 2017-05-31 12:44 | GCON ---
[f rep st] CONSULTATION DATE OF CONSULTATION: 05/31/2017 REFERRING PHYSICIAN: Abby Estrada MD CHIEF COMPLAINT: Nausea, vomiting. Dear Dr. Estrada: Thank you very kindly for asking me to evaluate the patient for recurrent episodes of nausea and vomi ting. He has been unable to eat or drink in the hospital due to this problem. He has had multiple a dmissions for similar episodes that have resolved with time. The patient says that his vomiting epis odes began about 5 years ago. He denies any abdominal pain. There has been no headache or visual di sturbances. He denies any heartburn or reflux symptoms. He says the vomiting usually starts in the morning and persists until he becomes dehydrated and is admitted. His lactic acid was elevated on a blood gas with a bicarbonate of 9 which corrected with hydration. Today, he actually says he feels p retty well with resolution of most of the symptoms. He also notes that his son has similar episodes. He does drink alcohol routinely. 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 He also uses marijua na heavily every day, but has not had any change in his marijuana or alcohol use in over a decade. Huber callahan has had similar episodes like this before 5 years ago, but he feels that over the last several year s, these episodes are becoming more frequent and more severe. I am asked to assist with further eval uation and management. PAST MEDICAL HISTORY: Otherwise negative. PAST SURGICAL HISTORY: Negative. SOCIAL HISTORY: The patient lives in [place]. He is . He has 2 children. He smokes clare shadi daily. He drinks alcohol daily. 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 FAMILY HISTORY: Significant for a son who has similar vomiting problems. REVIEW OF SYSTEMS: CONSTITUTIONAL: Denies weight loss, anorexia, fever, chills or night sweats. HE ENT: Denies headache, visual disturbances, dizziness, ear pain, rhinorrhea. PULMONARY: Denies coug h or shortness of breath. No dyspnea with exertion. CARDIOVASCULAR: He denies any breathing diffic ulties with exertion and is able to lie flat comfortably. He has no chest pain or syncope. He denie s palpitations. GI: As per the HPI. He denies specifically melena, hematochezia, diarrhea, constip ation, dysphagia or reflux. Denies hematemesis with the vomiting. He denies vomiting old food. RHE UMATOLOGIC: No joint pain or swelling. DERMATOLOGIC: No rash, pruritus, jaundice or hives. NEUROL OGIC: Denies paresthesias, weakness, falls or vertigo. GENITOURINARY: Denies hematuria. Denies an y change in the color of his urine or any flank pain. MEDICATIONS: On admission are none. ALLERGIES: None. PHYSICAL EXAM: VITAL SIGNS: Blood pressure 104/62 with a mean arterial pressure of 76, heart rate 5 9, respirations are 14. Temperature is 36.6, oxygenation is 98% on room air. GENERAL: A healthy-ap pearing, male, in no acute distress. HEENT: Normocephalic, atraumatic. The right sclerae conjunctiva is a little bit erythematous perhaps from vomiting and pressure. Oropharynx is c lear. NECK: Supple. The trachea is midline. No adenopathy, no JVD, no carotid bruit. PULMONARY: Clear to auscultation bilaterally. CARDIOVASCULAR: Regular rate and rhythm without murmur, rub, or gallop. ABDOMEN: Soft. No organomegaly. Normal bowel sounds. No distention, rebound, guarding o r tenderness. MUSCULOSKELETAL: Normal gait and station without joint deformity. No clubbing. No p almar erythema. DERMATOLOGIC: No rash or notable jaundice, no hives. NEUROLOGIC: Alert to person, place, and time. Cranial nerves are grossly normal. Speech is normal and fluid with a normal affec t. Motor is nonfocal. Gait is nonataxic. No asterixis. DATA BASE: White blood count 6.3, hematocrit 31.8, platelet count is 243. Sodium 133, potassium 3.3 , chloride 94, bicarbonate is 30, BUN is 8, creatinine is 0.8. Glucose 105, AST 45, ALT 55, alkaline phosphatase 79, total protein is 6.8, albumin 3.6, lipase is 106. TSH is 0.63. His admission bicar bonate was 9 with a lactate that was elevated on a blood gas at 6.1, which is improved. Imaging on a dmission includes a CT scan of the abdomen on May 30, 2017. This shows a probable fatty liver wit h sigmoid diverticulosis without inflammatory change. The gallbladder is unremarkable. Pancreas is normal. Spleen is normal. Adrenal glands and kidneys are unremarkable. IMPRESSION: 1. Recurrent nausea and vomiting. 2. Lactic acidosis, likely related to dehydration. 3. Alcohol abuse. 4. Marijuana dependency. RECOMMENDATIONS: 1. Eliminate alcohol and marijuana from his routine behaviors. Hyperemesis of cannabis syndrome is a possibility for his symptoms. 2. Cyclical vomiting is also possible. This would be supported by the chronicity of his symptoms, t heir cyclical nature, their intervening normal periods where he has no other episodes, and the family history where the son may also have the same illness. 3. We will proceed with upper endoscopy initially to ensure there are no other abnormalities causing nausea and vomiting. 4. If this is negative, I would recommend lifestyle changes first to eliminate alcohol and marijuana use gradually over the next several weeks and then see how he performs over the next few months. 5. If his endoscopy is normal and he is able to eliminate the majority of alcohol and marijuana from his daily habits, but he has no improvement in these episodes, then tricyclic antidepressant therapy at night would be recommended. 6. Could also consider a gastric emptying study for further evaluation of possible gastroparesis, al though this seems less likely diagnostically given his clinical syndrome. 7. Further recommendations to follow with endoscopy which we will do today. 8. Please leave him n.p.o. until his procedure is completed. 9. If his endoscopy is unremarkable, we can feed him and discharge him home once he is comfortable. 10. Symptomatic treatment of nausea with Zofran is reasonable. /[id number]/MODL
[2017-05-31] MEDS: D5W LR 1,000 ML IV SCH (12:51)
[2017-05-31] MEDS: PANTOPRAZOLE SODIUM 40 MG in NS 100 ML IV SCH ×2 (12:51→21:31)
[2017-05-31 14:24] LABS: PHENCYCLIDINE URINE BCH < 6 ng/ml (NEGATIVE); PHENCYCLIDINE URINE BCH NEGATIVE (NEGATIVE)
[2017-05-31 14:35] LABS: TETRAHYDROCANNABINOL URINE 586 ng/mL (NEGATIVE)
--- NOTE | 2017-05-31 14:43 | PDANEPAE ---
ANE History of Present Illness EGD for vomiting ANE Past Medical History - Pulmonary History Hx Oxygen in Use at Home: No Hx Sleep Apnea: No Sleep Apnea Screening Result - Last Documented: Positive - Endocrine History Hx Diabetes: No - GI History GERD: mild Hx Gastrointestinal Disorders: Yes Gastrointestinal History Comment: cyclic vomiting - Chronic Pain History Chronic Pain: No ANE Review of Systems Review of Systems: - Exercise capacity METS (RN): 4 METS ANE Patient History - Allergies Allergies/Adverse Reactions: No Known Allergies Allergy (Verified 03/28/17 15:15) - Home Medications Home medications: home medication list seen and reviewed Home Medications: Acetaminophen [Tylenol ES 500 mg (*)] 1,000 mg PO DAILY 05/30/17 [Last Taken Unknown] Albuterol [Ventolin Hfa Inhaler] 1 - 2 puffs IH Q4 PRN 05/30/17 [Last Taken Unknown] - NPO status NPO Status: no food or drink >8 hours NPO Since - Liquids (Date): 05/31/17 NPO Since - Liquids (Time): 09:00 NPO Since - Solids (Date): 05/30/17 NPO Since - Solids (Time): 20:00 - Anes Hx Anes Hx: no prior problems - Smoking Hx Smoking Status: Current every day smoker Marijuana use: Yes - Alcohol Use Alcohol Use: Heavy ANE Labs/Vital Signs - Labs Result Diagrams: 05/31/17 04:14 05/31/17 04:14 - Vital Signs Blood Pressure: 104/62 Heart Rate: 59 Respiratory Rate: 14 O2 Sat (%): 98 Height: 170.18 cm Weight: 61.5 kg ANE Physical Exam - Airway Neck exam: FROM Mallampati Score: Class 2 Mouth exam: normal dental/mouth exam - Pulmonary Pulmonary: no respiratory distress - Cardiovascular Cardiovascular: regular rate and rhythym - ASA Status ASA Status: II ANE Anesthesia Plan Anesthesia Plan: GA with mask (Propofol)
[2017-05-31] MEDS ORDERED: PROPOFOL/EMULSION 500 MG/50 ML BOTTLE IV ONE (14:48)
[2017-05-31] MEDS ORDERED: fentaNYL 100 MCG/2 ML INJ ONE (14:48)
[2017-05-31] MEDS ORDERED: LIDOCAINE 2% 100 MG/5 ML SYR ONE (14:50)
--- NOTE | 2017-05-31 15:10 | GIREPORT ---
[facility] Surgical Services - Endoscopy Department Patient Name: Iker Story Procedure Date: 05/31/2017 11:33 AM Patient Type: Inpatient Attending MD/ ER Physician: Harvey Haley MD Procedure: Upper GI endoscopy Indications: Nausea with vomiting Providers: Harvey Haley MD Medicines: Propofol per Anesthesia Complications: No immediate complications. Description of Procedure: After obtaining informed consent, the endoscope was passed under direct vision. Throughout the procedure, the patient's blood pressure, pulse, and oxygen saturations were monitored continuous ly. The Endoscope was introduced through the mouth, and advanced to the second part of duodenum. The upper GI endoscopy was accomplished without difficulty. The patient tolerated the procedure well . Findings: The esophagus was normal. Patchy moderate inflammation characterized by congestion (edema), erythema, friability and granularity was found in the gastric fundus and in the gastric body. The examined duodenum was normal. Estimated Blood Loss: Estimated blood loss: none. Post Op Diagnosis: - Normal esophagus. - Alcoholic gastritis. - Normal examined duodenum. - No specimens collected. - No clear endoscopic cause for his symptoms. I suspect this is related to his long-term use of cannabis or perhaps a cyclical vomiting syndrome. Recommendation: - Use Protonix (pantoprazole) 40 mg PO daily. - Resume regular diet today. - Advance diet as tolerated today. - [facility]. - Stop THC and cannabis products - Curtail ETOH use. - Zofran 4mg ODT TID PRN nausea - Consider initiation of desipramine 10mg po QHS if these symtpoms cont inue despite cessation of TCH and ETOH use. - Thank you for allowing me to be involved in the care of your patient. Attending Participation: I personally performed the entire procedure without the assistance of a fellow, resident or surg ical boiler assistant operator. Harvey Haley MD Harvey Haley MD 05/31/2017 3:10:04 PM Number of Addenda: 0 Note Initiated On: 05/31/2017 11:33 AM Total Procedure Duration Time 0 hours 2 minutes 45 seconds [email or web address]
[2017-05-31] MEDS ORDERED: MEPERIDINE 25 MG/ML SYR IVP PRN (16:13)
[2017-05-31] MEDS ORDERED: PROMETHAZINE HCL 25 MG/ML INJ IVP PRN (16:13)
[2017-05-31] MEDS ORDERED: ALBUTEROL 3 ML DEYVIAL IH PRN (16:13)
[2017-05-31] MEDS ORDERED: NALOXONE HCL 0.4 MG/ML INJ IVP PRN (16:13)
[2017-05-31] MEDS ORDERED: fentaNYL 100 MCG/2 ML INJ IVP PRN (16:13)
[2017-05-31] MEDS ORDERED: ONDANSETRON 4 MG/2 ML VIAL IVP PRN (16:13)
[2017-05-31] MEDS ORDERED: LABETALOL HCL 5 MG/ML 20 ML MDV IVP PRN (16:13)
[2017-05-31] MEDS ORDERED: ACETAMINOPHEN 500 MG TAB PO PRN (16:13)
[2017-05-31] MEDS ORDERED: LR 500 ML IV PRN (16:13)
[2017-05-31] MEDS ORDERED: DEXAMETHASONE 4 MG/ML VIAL IVP PRN (16:13)
--- NOTE | 2017-05-31 16:13 | POSTANESTH ---
Post Anesthetic Evaluation Cardiovascular Status: Normal, Stable Respiratory Status: Normal, Stable Level of Consciousness/Mental Status: Can Participate in Eval Pain Control: Adequate, Prn Tx Ordered Nausea/Vomiting Control: Adequate, Prn Tx Ordered Complications Possibly Related to Anesthesia: None Noted
[2017-05-31 21:19] LABS: POTASSIUM 3.4 mEq/L (3.5-5.2)
[2017-05-31] MEDS ORDERED: POTASSIUM CL 10 MEQ TAB PO ONE (21:24)
[2017-05-31] MEDS ORDERED: POTASSIUM CL 20 MEQ/15 ML UDCUP PO ONE (21:45)
[2017-06-01 04:18] VITALS: O2SAT 98
[2017-06-01] MEDS: D5W LR 1,000 ML IV SCH (04:23)
[2017-06-01] MEDS: oxyCODONE IR 5 MG TAB PO PRN (04:23)
[2017-06-01 05:22] LABS: ANION GAP 9 mEq/L (8-16); CALCIUM 10.2 mg/dL (8.5-10.4); CARBON DIOXIDE 28 mEq/l (22-31); CHLORIDE 97 mEq/L (97-110); CREATININE 0.8 mg/dL (0.7-1.3); GLOMERULAR FILTRATION RATE > 60; GLUCOSE 110 mg/dL (70-100); MAGNESIUM 1.9 mg/dL (1.6-2.3); POTASSIUM 4.1 mEq/L (3.5-5.2); SODIUM 134 mEq/L (134-144)
[2017-06-01 07:34] VITALS: RESP 17
--- NOTE | 2017-06-01 10:47 | GDS ---
[f rep st] DISCHARGE SUMMARY DIAGNOSES: 1. Abdominal pain with intractable nausea, vomiting. Negative workup. 2. Alcoholism. 3. Ongoing marijuana use. PROCEDURES DONE: 1. Abdominal CT scan with and without contrast. Fatty infiltration of the liver, diverticulosis wit hout evidence of diverticulitis. 2. Upper endoscopy. Normal esophagus, alcoholic gastritis, normal duodenum. CONSULTATIONS: GI, Dr. Harvey Haley. HOSPITAL COURSE: The patient is a 52-year-old with a history of alcohol use and cannabis use. He co mes in with acute recurrent abdominal pain, nausea, vomiting. He was placed on supportive care, incl uding pain medications, antiemetics, and his symptoms did not improve significantly. Evaluation incl uded the CAT scan and upper endoscopy, both of which were fairly unremarkable diagnostically, but did reveal some alcoholic gastritis. He was placed on a proton pump inhibitor and Carafate. It is felt that his symptoms are likely secondary to ongoing cannabis use, and it was recommended that he stop smoking cannabis and stop drinking alcohol if he ever wants to alleviate his symptoms completely. Th is is probably a chronic ongoing problem if he continues to use these substances. CONDITION ON DISCHARGE: Fair. He continues to be symptomatic, but is able to eat. DISCHARGE MEDICATIONS: Please see discharge medication form. He was given Protonix, Carafate, and a very small supply of Percocet. FOLLOWUP: He needs to establish care with a primary care physician. His GI workup is complete and u nremarkable. Total time spent with patient on day of discharge and coordination of care is 35 minutes. /[id number]/MODL
[2017-06-01] MEDS: ENOXAPARIN 40 MG/0.4 ML SYR SC SCH (10:50)
[2017-06-01] MEDS: PANTOPRAZOLE SODIUM 40 MG in NS 100 ML IV SCH (10:50)
[2017-06-01] MEDS: MULTIVITAMINS 1 EACH TAB PO SCH (10:51)
[2017-06-01] MEDS: FOLIC ACID 1 MG TAB PO SCH (10:51)
[2017-06-01] MEDS: THIAMINE HCL 100 MG TAB PO SCH (10:51)
[2017-06-01 11:20] VITALS: BP 141/83; PULSE 51; TEMP 97.7
[2017-06-01] MEDS ORDERED: SUCRALFATE 1 GM TAB PO SCH (11:30)
--- NOTE | 2017-06-01 12:10 | ASDISCHSUM ---
Discharge Information Plan Status:Home with No Needs Medically Cleared to Leave:06/01/2017 Discharge Date:06/01/2017 12:05 PM D/C Disposition: ADT D/C Disposition:Home, Routine, Self-Care Projected Discharge Date:06/01/2017 12:00 AM Transportation at D/C: Discharge Delay Reason: Follow-Up Date:06/01/2017 12:00 AM Discharge Slot: Final Diagnosis: Placement Information Patient Contact Information Contact Name:DEMETRIO Relationship:Other Address: City: [facility] Phone: [facility]/Zip Code: [address] Email: Financial Information Financial Class:Self-Pay Primary Plan Desc:SELF PAY Primary Plan Number: Secondary Plan Desc: Secondary Plan Number: Assessment Information [facility] CM Progress Note CM Note CM Note Notes: Pt admitted with cyclic vomiting, etoh intoxication, dehydration. Hx etoh, marijuana use daily. Currently receiving fluids. Self pay, referred to [facility]. Anticipate d/c with no CM needs when medically cleared. May benefit from resources for etoh and treatment. Date Signed: 05/30/2017 04:22 PM Electronically Signed By:LAUREN Jung [facility] CM Progress Note CM Note CM Note Notes: CM met w/ pt to provide substance prevention resources. Pt reports that he is not interested at this time. CM available for changes. Date Signed: 05/31/2017 09:39 AM Electronically Signed By:CARLINE Spring Intervention Information
== END 2017-06-01 12:05 | disposition home or self-care (01) ==
LOC: CED 21:00 → CEDHOLD 23:13 → F3E 05-30 01:42
PROVIDERS: ADMIT Family Medicine; ATTEND Family Medicine
PROC: 0DJ08ZZ Inspection of Upper Intestinal Tract, Via Natural or Artificial Opening Endoscopic (ICD-10-PCS; principal; 2017-05-29)
DX: K29.20 Alcoholic gastritis without bleeding (principal); R10.9 Unspecified abdominal pain; R11.2 Nausea with vomiting, unspecified; F10.20 Alcohol dependence, uncomplicated; F12.20 Cannabis dependence, uncomplicated
CPT/HCPCS: 71020-PO; 80048-PO; 80076-PO; 80307; 81003-PO; 81015-PO; 83605-PO; 83690-PO; 85025-PO; 96374; G0008; G0009; G0378; G0480; J1650; J2001; J2405; J2704; J3010; Q9967

== ENCOUNTER 2017-07-20 14:19 | Emergency (ER) | payer SELFPAY ==
[2017-07-20 14:31] VITALS: TEMP 97.9; O2SAT 97
[2017-07-20] MEDS ORDERED: MAG HYDROX/AL HYDROX/SIMETH 30 ML UDCUP PO ONE (14:34)
[2017-07-20] MEDS ORDERED: IPRATROPIUM/ALBUTEROL 3 ML DEYVIAL IH ONE (14:35)
[2017-07-20] MEDS ORDERED: PANTOPRAZOLE SODIUM 40 MG VIAL IVP ONE (14:35)
[2017-07-20] MEDS ORDERED: IPRATROPIUM/ALBUTEROL 3 ML DEYVIAL ONE (14:36)
--- NOTE | 2017-07-20 14:38 | EDPHY ---
Addendum entered and electronically signed by Ubaldo Gomez MD 07/21/17 07:30: Please disregard the transfer of care to Dr. Nichols. I was able to disposition the patient home as all resulted return prior to Dr. Nichols's arrival. 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 He reports having a dry cough in addition and feels that the cough is triggering a gag reflex is primarily responsible for his vomiting. He has no nausea at the moment. He was unable to take his Protonix today due to the vomiting. He reports the crampy upper belly pain feels similar to prior gastritis. He reports the intensity of the cramping is moderate. He has been able tolerate minimal fluids in between vomiting. ROS: No fevers or chills. No other constitutional complaints HEENT: Coryza. No sore throat. No ear pain. Pulmonary: Cough over the past week-mild increased frequency over the past 24 hours. No pleuritic pain. No hemoptysis. No shortness of breath. Cardiovascular: No chest pain or lightheadedness. No lower extremity swelling GI: No lower belly pain. No hematemesis. Normal bowel movements with no dark tarry stools. No coffee-ground emesis. : No dysuria. No testicular pain or swelling Integumentary: No skin rash. He has some diaphoresis intermittently with his symptoms today. Endocrine: No complaints 10 point ROS is otherwise negative. Source: Patient Exam Limitations: No limitations - Personal History Current Tetanus Diphtheria and Acellular Pertussis (TDAP): Yes Tetanus Vaccine Date: last 10 years - Medical/Surgical History PMH: Gastritis Cyclic vomiting Alcohol abuse Hx Asthma: No Hx Chronic Respiratory Disease: No Hx Diabetes: No Hx Cardiac Disease: No Hx Renal Disease: No Hx Cirrhosis: No Hx Alcoholism: Yes Hx HIV/AIDS: No Hx Splenectomy or Spleen Trauma: No Other PMH: Alcoholism, cyclic vomiting, GASTROENTERITIS - Family History Significant Family History: No pertinent family hx - Social History Smoking Status: Current every day smoker Alcohol Use: Other (Patient reports that he has decreases drinking to 1 beer and 1 shot of alcohol day though reports that he has not had alcohol for 2 days. ) Drug Use: Marijuana (Patient reports decreasing his marijuana intake with last use 3 days ago per patient.) - Physical Exam Exam: General Appearance: 48 year 2-year-old black male, Alert, no distress. Eyes: 3 4 mm Pupils equal and round no pallor or injection. Extraocular motions intact ENT, Mouth: Mucous membranes dry. No alcohol halitosis. Oropharynx is clear. Ears: Clear external canals and TMs bilaterally. Respiratory: There are no retractions, lungs are clear to auscultation. Cardiovascular: Regular rate and rhythm. No murmur gallop or rub Gastrointestinal: Normoactive, soft, mild epigastric tenderness with no guarding or rebound. No organomegaly is appreciated. Back: No CVA tenderness : No testicular tenderness Neurological: GCS 15. No slurring of speech. Patient is clinically sober at this time Skin: Warm and dry, no rashes. Musculoskeletal: Neck is supple nontender. Extremities are symmetrical, full range of motion. Psychiatric: Mood and affect normal DIFFERENTIAL DIAGNOSIS: After history and physical exam differential diagnosis was considered for viral URI with cough triggering emesis, pertussis, influenza a, gastritis, pancreatitis, cholecystitis, Constitutional: Initial Vital Signs Temperature (C) 36.6 C 07/20/17 14:29 Heart Rate 85 07/20/17 14:29 Respiratory Rate 16 07/20/17 14:29 Blood Pressure 126/75 H 07/20/17 14:29 O2 Sat (%) 97 07/20/17 14:29 O2 Delivery Mode Room Air Allergies/Adverse Reactions: No Known Allergies Allergy (Verified 03/28/17 15:15) Home Medications: Medication Instructions Recorded Acetaminophen [Tylenol ES 500 mg 1,000 mg PO DAILY 05/30/17 (*)] Albuterol [Ventolin Hfa Inhaler] 1 - 2 puffs IH Q4 PRN 05/30/17 Pantoprazole Sodium [Protonix] 40 mg PO BID #60 tablet.dr 06/01/17 Sucralfate [Carafate 1 GM (*)] 1 gm PO ACHS #120 tab 06/01/17 oxyCODONE IR [Oxycodone Ir (*)] 5 - 10 mg PO Q6H PRN #30 tab 06/01/17 Albuterol Hfa Anes Only [Proair 2 puffs IH Q4 PRN #1 mdi 07/20/17 Hfa Icu (*)] Benzonatate [Tessalon Pearles (RX)] 100 - 200 mg PO TID PRN #20 cap 07/20/17 Ondansetron Odt [Zofran Odt] 4 - 8 mg PO Q4PRN PRN #4 tab 07/20/17 Medical Decision Making ED Course/Re-evaluation: IV normal saline bolus DuoNeb for cough Protonix IV Zofran IV Maalox p.o. Discussion: Patient presents with cough triggering gag and vomiting. He also has coryza and I suspect this is just URI with cough triggering gag and vomiting. He also likely has some gastritis given prior history of this and mild epigastric tenderness. Will plan to hydrate, treat him with a DuoNeb for cough, Tessalon Perles as an outpatient and albuterol. Will rule out pancreatitis or hepatitis with pending labs. Signed this patient over to the [facility] emergency physician-Dr. Nichols at 3: 00 p.m.. He will follow up on lab results and final disposition. - Data Points Laboratory Results: 07/20/17 07/20/17 14:42 14:42 WBC Pending RBC Pending Hgb Pending Hct Pending MCV Pending MCH Pending MCHC Pending RDW Pending Plt Count Pending MPV Pending Neut % (Auto) Pending Lymph % (Auto) Pending [place] % (Auto) Pending Eos % (Auto) Pending Baso % (Auto) Pending Nucleat RBC Rel Count Pending Absolute Neuts (auto) Pending Absolute Lymphs (auto) Pending Absolute Monos (auto) Pending Absolute Eos (auto) Pending Absolute Basos (auto) Pending Absolute Nucleated RBC Pending Immature Gran % Pending Immature Gran # Pending Sodium Pending Potassium Pending Chloride Pending Carbon Dioxide Pending Anion Gap Pending BUN Pending Creatinine Pending Estimated GFR Pending Glucose Pending Calcium Pending Total Bilirubin Pending AST Pending ALT Pending Alkaline Phosphatase Pending Total Protein Pending Albumin Pending Lipase Pending Medications Given: Discontinued Medications Al Hydroxide/Mg Hydroxide (Maalox Susp) 30 ml PO ONCE ONE Stop: 07/20/17 14:35 Last Admin: 07/20/17 14:44 Dose: 30 ml Albuterol/Ipratropium (Duoneb) 3 ml IH EDNOW ONE Stop: 07/20/17 14:36 Last Admin: 07/20/17 14:39 Dose: 3 ml Pantoprazole Sodium (Protonix) 40 mg IVP EDNOW ONE Stop: 07/20/17 14:36 Last Admin: 07/20/17 14:44 Dose: 40 mg Departure - Departure Disposition: Home, Routine, Self-Care Clinical Impression: Vomiting Qualifiers: Vomiting type: unspecified Vomiting Intractability: non-intractable Nausea presence: unspecified Qualified Code(s): R11.10 - Vomiting, unspecified Gastritis Qualifiers: Gastritis type: unspecified gastritis Chronicity: acute Gastritis bleeding: without bleeding Qualified Code(s): K29.00 - Acute gastritis without bleeding Condition: Good Instructions: Gastritis (ED), Acute Nausea and Vomiting (ED) Additional Instructions: Diagnoses: 1. Gastritis 2. Vomiting 3. Cough Plan: Quit smoking Drink plenty fluids. Light diet until you feel improved Zofran for nausea vomiting Continue Protonix Maalox for any upper belly discomfort Albuterol inhaler for cough, wheeze or shortness of breath Tessalglenn Perlalfred in addition as a cough suppressant if needed. Follow up with primary care physician. Return for any significant worsening despite the treatment plan. Referrals: NONE *PRIMARY CARE P,. [Primary Care Provider] - As per Instructions Ariela Parrish MD [Medical Doctor] - As per Instructions Prescriptions: Albuterol Hfa Anes Only [Proair Hfa Icu (*)] 2 puffs IH Q4 PRN #1 mdi PRN Reason: Wheezing Benzonatate [Tessalon Pearles (RX)] 100 - 200 mg PO TID PRN #20 cap PRN Reason: cough Ondansetron Odt [Zofran Odt] 4 - 8 mg PO Q4PRN PRN #4 tab PRN Reason: Vomiting
[2017-07-20] MEDS ORDERED: ONDANSETRON 4 MG/2 ML VIAL IVP ONE (14:43)
[2017-07-20] MEDS ORDERED: NS 1,000 ML IV ONE (14:45)
[2017-07-20 14:48] LABS: PLATELET COUNT 383 10^3/uL (150-400)
[2017-07-20 15:33] VITALS: BP 119/75; PULSE 89; RESP 18
== END 2017-07-20 15:31 | disposition home or self-care (01) ==
LOC: CED 14:19
DX: K29.00 Acute gastritis without bleeding (principal); F17.200 Nicotine dependence, unspecified, uncomplicated
CPT/HCPCS: 80053-PO; 83690-PO; 84100-PO; 85025-PO; 87400-PO; 96374; J2405

== ENCOUNTER 2017-12-09 14:24 | Emergency (ER) | payer SELFPAY ==
--- NOTE | 2017-12-09 14:49 | EDPHY ---
H & P Smoking Status: Heavy smoker Time Seen by Provider: 12/09/17 14:42 HPI/ROS: CHIEF COMPLAINT: Right calf swelling HISTORY OF PRESENT ILLNESS: 52-year-old male presents with right calf swelling. Onset of right calf swelling 1 week ago, gradually increasing since then. Associated with mild to moderate pain in the calf, that extends up to the medial aspect of the thigh. The pain increases with ambulation. No trauma and no prior similar symptoms. No history of venous thromboembolism. REVIEW OF SYSTEMS: complete 10 point ROS negative except at noted in the HPI (Yesi Vanegas) Past Medical/Surgical History: Alcoholism Cyclic vomiting syndrome (Yesi Vanegas) Social History: PCP: None No alcohol today (Yesi Vanegas) Physical Exam: General Appearance: Alert, pleasant Eyes: Pupils equal and round, no conjunctival pallor or injection ENT, Mouth: Mucous membranes moist Neck: Normal inspection Respiratory: Lungs are clear to auscultation Cardiovascular: Regular rate and rhythm Gastrointestinal: Abdomen is soft and nontender Neurological: A&O, nonfocal, normal gait Skin: Warm and dry, scarring on the anterior aspect of the right leg Extremities: right calf swelling and tenderness, no thigh swelling or tenderness Vascular: 2+ dorsalis pedis pulses Psychiatric: Mood and affect normal (Yesi Vanegas) Constitutional: Initial Vital Signs Temperature (C) 36.9 C 12/09/17 14:31 Heart Rate 104 H 12/09/17 14:31 Respiratory Rate 18 12/09/17 14:31 Blood Pressure 117/81 H 12/09/17 14:31 O2 Sat (%) 96 12/09/17 14:31 O2 Delivery Mode Room Air Allergies/Adverse Reactions: No Known Allergies Allergy (Verified 12/09/17 14:37) Home Medications: Medication Instructions Recorded Acetaminophen [Tylenol ES 500 mg 1,000 mg PO DAILY 05/30/17 (*)] Albuterol [Ventolin Hfa Inhaler] 1 - 2 puffs IH Q4 PRN 05/30/17 Pantoprazole Sodium [Protonix] 40 mg PO BID #60 tablet. 06/01/17 Sucralfate [Carafate 1 GM (*)] 1 gm PO ACHS #120 tab 06/01/17 oxyCODONE IR [Oxycodone Ir (*)] 5 - 10 mg PO Q6H PRN #30 tab 06/01/17 Albuterol Hfa Anes Only [Proair 2 puffs IH Q4 PRN #1 mdi 07/20/17 Hfa Icu (*)] Benzonatate [Tessalon Pearles (RX)] 100 - 200 mg PO TID PRN #20 cap 07/20/17 Ondansetron Odt [Zofran Odt] 4 - 8 mg PO Q4PRN PRN #4 tab 07/20/17 Enoxaparin [Lovenox 60 MG (*)] 60 mg SQ Q12H 7 Days #14 syr 12/09/17 Warfarin Sodium 3 mg PO DAILY 21 Days #21 tablet 12/09/17 Medical Decision Making - Diagnostics Imaging Results: Imaging Impressions Extremity Venous Study 12/09/17 14:45 Impression: DVT extending from the common femoral through the popliteal veins. Findings discussed with Dr. Jaime on December 09, 2017 at 1522. ED Course/Re-evaluation: This pt presents with atraumatic RLE swelling, concerning for DVT. RLE ultrasound ordered. 3pm: signed over to Dr. Jaime at shift change. Ultrasound pending. (Yesi Vanegas) Right lower extremity ultrasound positive for femoral DVT. Labs were drawn to see if patient was appropriate for anticoagulant. INR within normal limits, 1.0 BUN and creatinine 8 /0.7 Hemoglobin 9.8, last hemoglobin 10.4 in May 2017, patient's baseline with a microcytic anemia I discussed the case with the care program resident on-call, who recommended using a combination of Lovenox and warfarin. The patient currently has no primary care physician and has no ability to pay for prescriptions, I then contacted the geriatric case manager who recommended giving a 1st dose of Lovenox and warfarin in the emergency department and was able to arrange follow-up tomorrow with the [facility] who have medical assistance for prescriptions, and can arrange ongoing follow-up for this patient. Patient was given Lovenox 60 mg subcu and warfarin 5 mg p.o. He was discharged with prescriptions for Lovenox 60 mg subcu Q 12 hr x7 days and warfarin 3 mg p.o. Daily. He was educated extensively on reasons to return to the emergency department, including chest pain, shortness of breath, dark stools, any signs of bleeding. Upon discharge he agreed to keep his appointment with [facility] tomorrow December 10, 2017 at 10:00 a.m.. (Roula Jaime) - Data Points Laboratory Results: Laboratory Results 12/09/17 15:45 12/09/17 15:45 12/09/17 12/09/17 12/09/17 15:45 15:45 15:45 WBC 6.37 10^3/uL 10^3/uL (3.80-9.50) RBC 4.50 10^6/uL 10^6/uL (4.40-6.38) Hgb 9.8 g/dL L g/dL (13.7-17.5) Hct 32.4 % L % (40.0-51.0) MCV 72.0 fL L fL (81.5-99.8) MCH 21.8 pg L pg (27.9-34.1) MCHC 30.2 g/dL L g/dL (32.4-36.7) RDW 21.6 % H % (11.5-15.2) Plt Count 416 10^3/uL H 10^3/uL (150-400) MPV 9.0 fL fL (8.7-11.7) Neut % (Auto) 56.7 % % (39.3-74.2) Lymph % (Auto) 29.2 % % (15.0-45.0) [place] % (Auto) 11.6 % % (4.5-13.0) Eos % (Auto) 0.9 % % (0.6-7.6) Baso % (Auto) 1.1 % % (0.3-1.7) Nucleat RBC Rel Count 0.0 % % (0.0-0.2) Absolute Neuts (auto) 3.61 10^3/uL 10^3/uL (1.70-6.50) Absolute Lymphs (auto) 1.86 10^3/uL 10^3/uL (1.00-3.00) Absolute Monos (auto) 0.74 10^3/uL 10^3/uL (0.30-0.80) Absolute Eos (auto) 0.06 10^3/uL 10^3/uL (0.03-0.40) Absolute Basos (auto) 0.07 10^3/uL 10^3/uL (0.02-0.10) Absolute Nucleated RBC 0.00 10^3/uL 10^3/uL (0-0.01) Immature Gran % 0.5 % % (0.0-1.1) Immature Gran # 0.03 10^3/uL 10^3/uL (0.00-0.10) Platelet Estimate INCREASED H (ADEQ) Hypochromasia 2+ H Microcytic Cells 2+ H PT 13.1 SEC SEC (12.0-15.0) INR 1.00 (0.83-1.16) APTT 25.8 SEC SEC (23.0-38.0) Sodium 144 mEq/L mEq/L (135-145) Potassium 3.1 mEq/L L mEq/L (3.5-5.2) Chloride 108 mEq/L mEq/L (97-110) Carbon Dioxide 22 mEq/l mEq/l (22-31) Anion Gap 14 mEq/L mEq/L (8-16) BUN 8 mg/dL mg/dL (7-23) Creatinine 0.7 mg/dL mg/dL (0.7-1.3) Estimated GFR > 60 Glucose 91 mg/dL mg/dL (70-100) Calcium 9.7 mg/dL mg/dL (8.5-10.4) Magnesium 2.4 mg/dL H mg/dL (1.6-2.3) Total Bilirubin 0.3 mg/dL mg/dL (0.1-1.4) AST 29 IU/L IU/L (17-59) ALT 25 IU/L IU/L (21-72) Alkaline Phosphatase 104 IU/L IU/L (38-126) Total Protein 7.4 g/dL g/dL (6.3-8.2) Albumin 3.5 g/dL g/dL (3.5-5.0) Ethyl Alcohol Cancelled 12/09/17 15:40 WBC RBC Hgb Hct MCV MCH MCHC RDW Plt Count MPV Neut % (Auto) Lymph % (Auto) [place] % (Auto) Eos % (Auto) Baso % (Auto) Nucleat RBC Rel Count Absolute Neuts (auto) Absolute Lymphs (auto) Absolute Monos (auto) Absolute Eos (auto) Absolute Basos (auto) Absolute Nucleated RBC Immature Gran % Immature Gran # Platelet Estimate Hypochromasia Microcytic Cells PT INR APTT Sodium Potassium Chloride Carbon Dioxide Anion Gap BUN Creatinine Estimated GFR Glucose Calcium Magnesium Total Bilirubin AST ALT Alkaline Phosphatase Total Protein Albumin Ethyl Alcohol 113 mg/dL H mg/dL (0-10) Medications Given: Discontinued Medications Enoxaparin Sodium (Lovenox) 60 mg SC EDNOW ONE Stop: 12/09/17 17:00 Last Admin: 12/09/17 17:25 Dose: 60 mg Warfarin Sodium (Coumadin) 5 mg PO EDNOW ONE Stop: 12/09/17 17:08 Last Admin: 12/09/17 17:25 Dose: 5 mg Departure - Departure Disposition: Home, Routine, Self-Care Clinical Impression: Deep vein thrombosis of right lower extremity Condition: Good Instructions: Deep Vein Thrombosis (ED) Additional Instructions: [facility] have a [facility] scheduled for 10:00 am Wednesday12/10/17. You should arrive by 9:30 am to complete all necessary paperwork. You should bring your social security card, ID and/or income statements with you to the appointment. You should also bring your prescriptions and discharge paperwork from the Emergency Department to your appointment. [facility] is located at [address] [place] [address]. The main phone number is . Please do not skip this appointment. [facility] has a medication assistance program and they will help provide you all necessary medications. A DVT can be life-threatening, you must receive follow up care and treatment for this issue. If for any reason you are unable to make your appointment at [facility], you should return to the Emergency Department immediately. Referrals: NONE *PRIMARY CARE P,. [Primary Care Provider] - As per Instructions Prescriptions: Enoxaparin [Lovenox 60 MG (*)] 60 mg SQ Q12H 7 Days #14 syr Warfarin Sodium 3 mg PO DAILY 21 Days #21 tablet
[2017-12-09 15:49] LABS: PLATELET COUNT 416 10^3/uL (150-400)
[2017-12-09 16:00] LABS: PROTIME(PATIENT) 13.1 SEC (12.0-15.0)
[2017-12-09] MEDS ORDERED: ENOXAPARIN 60 MG/0.6 ML SYR SC ONE (16:59)
[2017-12-09] MEDS ORDERED: WARFARIN SODIUM 5 MG TAB PO ONE (17:07)
[2017-12-09 17:41] VITALS: BP 134/86
--- NOTE | 2017-12-09 18:07 | ASMTCMCOM ---
CM Note CM Note Notes: Pt presented to the Emergency Department with right calf swelling. Pt diagnosed with a large DVT. Call received from ADWOA Palacios and Dr. Jaime at [facility] requesting assistance with a discharge plan. Per Dr. Jaime, pt is well known to [facility]. History includes chronic alcoholism and cyclic vomiting. Pt is a self pay, with no insurance and no money. The pt is and "lives in an apartment, but has no ability to pay because all of his money goes to rent." Pt will require anticoagulation on discharge, Coumadin with a Lovenox bridge. Call placed to Maxine Jacques, [employer] of for assistance with discharge plan. Per Maxine, CM should schedule pt a follow up appointment at [facility] for Wednesday12/10/17. Call placed to Daniela at [facility] . Discharge needs discussed. Appointment scheduled for 10:00 am on Wednesday12/10/17. Per Daniela, pt should be eligible for the medication assistance program. [facility] to provide Coumadin and Lovenox. Daniela requesting pt arrive at 9:30 Wednesday to fill out all necessary paperwork. Pt to bring a copy of his social security card, ID and/or income documents. Pt to also bring prescriptions and discharge paperwork from [facility]. Instructions typed up in pt's discharge summary. Call placed to Dr. Jaime at [facility] . Update provided. Dr. Jaime to provide a loading dose of Lovenox and Coumadin this evening, as well as prescriptions and discharge instructions. Pt to follow up with [facility] Wednesday at 10:00 12/10/17. Asked Dr. Jaime to verify pt's contact information. Call received from ADWOA Mcmillan at [facility]. Pt's phone number . Alternate contact number provided for pt's ex- Zuleima . Discharge plan discussed and confirmed. Updated contact information called to [facility]. [facility] ED CM to follow up with [facility] on Wednesday12/10/17 to confirm pt arrived for scheduled appt. CM will continue to follow for any further needs. Date Signed: 12/09/2017 06:06 PM Electronically Signed By:Courtney Dorsey RN
--- NOTE | 2017-12-10 17:15 | ASDISCHSUM ---
Discharge Information Plan Status:Home with No Needs Medically Cleared to Leave: Discharge Date:12/09/2017 05:41 PM CM D/C Disposition:Home, Routine, Self-Care ADT D/C Disposition:Home, Routine, Self-Care Projected Discharge Date:12/09/2017 05:41 PM Transportation at D/C:None or Unknown Discharge Delay Reason: Follow-Up Date:12/09/2017 05:41 PM Discharge Slot: Final Diagnosis: Placement Information Patient Contact Information Contact Name:DEMETRIO Relationship:Other Address: City: [facility] Phone: [facility]/Zip Code: [address] Email: Financial Information Financial Class:Self-Pay Primary Plan Desc:SELF PAY Primary Plan Number: Secondary Plan Desc: Secondary Plan Number: Assessment Information [facility] Progress Note CM Note Note Notes: Pt presented to the Emergency Department with right calf swelling. Pt diagnosed with a large DVT. Call received from ADWOA Palacios and Dr. Jaime at [facility] requesting assistance with a discharge plan. Per Dr. Jaime, pt is well [facility]. History includes chronic alcoholism and cyclic vomiting. Pt is a self pay, with no insurance and no money. The pt is and "lives in an apartment, but has no ability to pay because all of his money goes to rent." Pt will require anticoagulation on discharge, Coumadin with a Lovenox bridge. Call placed to Maxine Jacques, Front Office Agent of for assistance with discharge plan. Per Maxine should schedule pt a follow up appointment at [facility] for Wednesday12/10/17. Call placed to Daniela at [facility] . Discharge needs discussed. Appointment scheduled for 10:00 am on Wednesday12/10/17. Per Daniela, pt should be eligible for the medication assistance program. [facility] to provide Coumadin and Lovenox. Daniela requesting pt arrive at 9:30 Wednesday to fill out all necessary paperwork. Pt to bring a copy of his social security card, ID and/or income documents. Pt to also bring prescriptions and discharge paperwork from [facility]. Instructions typed up in pt's discharge summary. Call placed to Dr. Jaime at [facility] . Update provided. Dr. Jaime to provide a loading dose of Lovenox and Coumadin this evening, as well as prescriptions and discharge instructions. Pt to follow up with [facility] Wednesday at 10:00 12/10/17. Asked Dr. Jaime to verify pt's contact information. Call received from ADWOA Mcmillan at [facility]. Pt's phone number . Alternate contact number provided for pt's ex- Zuleima . Discharge plan discussed and confirmed. Updated contact information called to [facility]. [facility] ED CM to follow up with [facility] on Wednesday12/10/17 to confirm pt arrived for scheduled appt. CM will continue to follow for any further needs. Date Signed: 12/09/2017 06:06 PM Electronically Signed By:Courtney Dorsey RN [facility] CM Progress Note CM Note CM Note Notes: Followed up with [facility] ([phone]) and spoke w/ Daniela who states pt made it to his scheduled appt today and his provider is discontinuing the Lovenox and Coumadin that were started last night in the ED. Instead the pt will be started on Xarelto 15mg tab BID x 21 days, and then 20mg once daily. Daniela states the patient is set up with their Medication Assistance Program and he also said the patient david-reported that he is homeless so PC will provide additional resources and information to the patient. CM available for further assistance if needed. Date Signed: 12/10/2017 05:12 PM Electronically Signed By:Ju Berman RN Intervention Information Intervention Type:Indigent Medication Date of Service:12/09/2017 06:07 PM Information Patient Type:Emergency Room Staff Member:ADWOA Dorsey Taylor Hours:0.25 Discipline: Severity: Comment:Pt set up with [facility] medicat ion assistance program. Intervention Type:Health Clinic Date of Service:12/09/2017 06:08 PM Patient Type:Emergency Room Staff Member:ADWOA Dorsey Taylor Hours:0.25 Discipline: Severity: Comment:Pt scheduled for [facility] follo w up appointment. See notes. Intervention Type:Post Acute Communication Date of Service:12/10/2017 05:13 PM Patient Type:Emergency Room Staff Member:ADWOA Berman Sharon Hours:0.25 Discipline:Bar Tacker Severity: Comment:Followed up with [facility]. Val jewell made it his appointment today.
== END 2017-12-09 17:41 | disposition home or self-care (01) ==
LOC: CED 14:24
DX: I82.411 Acute embolism and thrombosis of right femoral vein (principal); F17.200 Nicotine dependence, unspecified, uncomplicated; Z79.01 Long term (current) use of anticoagulants
CPT/HCPCS: 80053-PO; 83735-PO; 85025-PO; 85610-PO; 85730-PO; 93971-PO; G0480; J1650

== ENCOUNTER 2017-12-17 10:32 | Emergency (ER) | payer MEDICAID ==
--- NOTE | 2017-12-17 11:20 | EDPHY ---
H & P Time Seen by Provider: 12/17/17 11:14 HPI/ROS: CHIEF COMPLAINT: Low back pain, stomach pain HISTORY OF PRESENT ILLNESS: Patient is a 52-year-old male with a history of cyclic vomiting and recent diagnosis of DVT on Xarelto who presents emergency department with low back pain and abdominal pain. The patient states that he has chronic low back pain but this is been worse. He describes bilateral lower lumbar discomfort. Worse with movement. He feels as though the muscles"are spasming."Patient denies any incontinence of urine or stool. No fevers or chills. No weakness or numbness. Patient also complains of abdominal discomfort. He states"this is normal for me."Patient reports that he has abdominal discomfort all the time. He feels it is from his chronic cough. We has chronic coughing this causes his abdominal muscles to become sore. He states this is nothing new. REVIEW OF SYSTEMS: My complete review of systems is negative except as mentioned in the HPI. Past Medical/Surgical History: Includes cyclic vomiting, alcoholism, DVT Social history: The patient drinks alcohol. He smokes. Smoking Status: Heavy smoker Physical Exam: Vitals noted GENERAL: No acute distress, alert. HEENT: Eyes normal to inspection, normal pharynx, no signs of dehydration. NECK: No thyromegaly, no lymphadenopathy, supple. RESPIRATORY: Clear to auscultation bilaterally, no rales, rhonchi or wheezing. CVS: Regular rate and rhythm, no rubs, murmurs, or gallops. ABDOMEN: Soft, nontender, nondistended, no organomegaly. Benign. BACK: Normal to inspection, no CVA tenderness. Patient has bilateral lumbar mild tenderness palpation. No spinal tenderness. His discomfort is worse when he sits up in the bed. SKIN: Normal color, no rash, warm, dry. No pallor. EXTREMITIES: Mild right-sided pedal edema, no calf tenderness, no Homans sign or cords, no joint swelling. Neurovascular intact distally NEURO/PSYCH: Alert and oriented x3, normal mood and affect, normal motor sensory exam. No obvious cranial nerve deficit. Constitutional: Initial Vital Signs Temperature (C) 36.8 C 12/17/17 10:38 Heart Rate 91 12/17/17 10:38 Respiratory Rate 16 12/17/17 10:38 Blood Pressure 136/93 H 12/17/17 10:38 O2 Sat (%) 99 12/17/17 10:38 O2 Delivery Mode Room Air Allergies/Adverse Reactions: No Known Allergies Allergy (Verified 12/09/17 14:37) Home Medications: Medication Instructions Recorded Pantoprazole Sodium [Protonix] 40 mg PO BID #60 tablet. 06/01/17 Cyclobenzaprine [Flexeril] 10 mg PO TID #15 tab 12/17/17 Ondansetron Odt [Zofran Odt 4 mg 4 mg PO Q4PRN PRN #7 tab 12/17/17 (*)] Xarelto 12/17/17 Medical Decision Making ED Course/Re-evaluation: In the emergency department I discussed possible etiologies with the patient. I answered all his questions. I reviewed the patient's medical record from 12/09. Patient episode of emesis while here. He states this occurs intermittently at baseline. On repeat exam his abdomen is s/nt/nd. I discussed treatment options with the patient. His pain does seem to be musculoskeletal in nature. He will be given Zofran for nausea and Flexeril for muscle relaxation. Patient agrees with this plan. He was given warnings prior to leaving. He will return with worsening symptoms. He will continue to take his medications as directed by his primary care physician. Differential Diagnosis: My differential includes but is not limited to DVT, extension of DVT, abdominal clot, small-bowel obstruction, perforation, cholecystitis, pancreatitis, kidney stone, pyelonephritis, urinary tract infection, cauda equina syndrome, disc herniation, muscle spasm Departure - Departure Disposition: Home, Routine, Self-Care Clinical Impression: Low back pain Qualifiers: Chronicity: acute Back pain laterality: bilateral Sciatica presence: without sciatica Qualified Code(s): M54.5 - Low back pain Abdominal pain Qualifiers: Abdominal location: generalized Qualified Code(s): R10.84 - Generalized abdominal pain Condition: Fair Instructions: Acute Low Back Pain (ED), Acute Abdominal Pain (ED) Additional Instructions: Return with increasing pain, focal pain, recurrent vomiting, fever, weakness, numbness, incontinence of urine or stool, or any other concerns. Referrals: [facility],. [Clinic] - 2-3 days without fail Prescriptions: Cyclobenzaprine [Flexeril] 10 mg PO TID #15 tab Ondansetron Odt [Zofran Odt 4 mg (*)] 4 mg PO Q4PRN PRN #7 tab PRN Reason: For Nausea & Vomiting
[2017-12-17] MEDS ORDERED: ONDANSETRON DISINTEGRATING 4 MG TAB PO ONE (11:23)
[2017-12-17 11:43] VITALS: BP 135/90
== END 2017-12-17 11:39 | disposition home or self-care (01) ==
LOC: CED 10:32
DX: M54.5 Low back pain (principal); R10.84 Generalized abdominal pain; F17.200 Nicotine dependence, unspecified, uncomplicated; Z79.01 Long term (current) use of anticoagulants

== ENCOUNTER 2017-12-17 16:37 | Emergency (ER) | payer MEDICAID ==
[2017-12-17 16:59] VITALS: BP 163/91
[2017-12-17] MEDS ORDERED: ONDANSETRON 4MG PREPACK#2 BTL TAKEHOME ONE (17:00)
--- NOTE | 2017-12-17 17:01 | EDPHY ---
H & P Stated Complaint: dehydration Time Seen by Provider: 12/17/17 16:56 HPI/ROS: CHIEF COMPLAINT: Dehydration HISTORY OF PRESENT ILLNESS: The patient is a 52-year-old man with history of alcoholism and cyclic vomiting who is seen earlier today complaining of low back pain. He was given Flexeril and Zofran. He states that he has not been able to feel Zofran prescription yet and that he threw up and decided to come back and get fluids. He is afebrile. No bowel or bladder abnormalities. No abdominal pain, no chest pain or shortness of breath. He is well known to me personally and the department. REVIEW OF SYSTEMS: Constitutional: denies: chills, fever, recent illness, recent injury EENTM: denies: blurred vision, double vision, nose congestion Respiratory: denies: cough, shortness of breath Cardiac: denies: chest pain, irregular heart rate, lightheadedness, palpitations Gastrointestinal/Abdominal: See HPI Genitourinary: denies: dysuria, frequency, hematuria, pain Musculoskeletal: denies: joint pain, muscle pain Skin: denies: lesions, rash, jaundice, bruising Neurological: denies: headache, numbness, paresthesia, tingling, dizziness, weakness Hematologic/Lymphatic: denies: blood clots, easy bleeding, easy bruising Immunologic/allergic: denies: HIV/AIDS, transplant EXAM: GENERAL: Well-appearing, well-nourished and in no acute distress. HEAD: Atraumatic, normocephalic. EYES: Pupils equal round and reactive to light, extraocular movements intact, sclera anicteric, conjunctiva are normal. ENT: TMs normal, nares patent, oropharynx clear without exudates. Moist mucous membranes. NECK: Normal range of motion, supple without lymphadenopathy or JVD. LUNGS: Breath sounds clear to auscultation bilaterally and equal. No wheezes rales or rhonchi. HEART: Regular rate and rhythm without murmurs, rubs or gallops. ABDOMEN: Soft, nontender, normoactive bowel sounds. No guarding, no rebound. No masses appreciated. BACK: No CVA tenderness, no spinal tenderness, step-offs or deformities EXTREMITIES: Normal range of motion, no pitting or edema. No clubbing or cyanosis. NEUROLOGICAL: Cranial nerves II through XII grossly intact. Normal speech, normal gait. 5/5 strength, normal movement in all extremities, normal sensation PSYCH: Normal mood, normal affect. SKIN: Warm, dry, normal turgor, no visible rashes or lesions. Source: Patient, Old records Exam Limitations: No limitations - Personal History Tetanus Vaccine Date: 2014 - Medical/Surgical History Hx Asthma: No Hx Chronic Respiratory Disease: No Hx Diabetes: No Hx Cardiac Disease: No Hx Renal Disease: No Hx Cirrhosis: No Hx Alcoholism: Yes Hx HIV/AIDS: No Hx Splenectomy or Spleen Trauma: No Other PMH: Alcoholism, cyclic vomiting, GASTROENTERITIS, blood clot - Family History Significant Family History: No pertinent family hx - Social History Smoking Status: Heavy smoker Alcohol Use: Heavy Constitutional: Initial Vital Signs Temperature (C) 36.6 C 12/17/17 16:56 Heart Rate 53 L 12/17/17 16:56 Respiratory Rate 18 12/17/17 16:56 Blood Pressure 163/91 H 12/17/17 16:56 O2 Sat (%) 100 12/17/17 16:56 O2 Delivery Mode Room Air Allergies/Adverse Reactions: No Known Allergies Allergy (Verified 12/17/17 16:59) Home Medications: Medication Instructions Recorded Pantoprazole Sodium [Protonix] 40 mg PO BID #60 tablet. 06/01/17 Cyclobenzaprine [Flexeril] 10 mg PO TID #15 tab 12/17/17 Ondansetron Odt [Zofran Odt 4 mg 4 mg PO Q4PRN PRN #7 tab 12/17/17 (*)] Xarelto 12/17/17 Medical Decision Making ED Course/Re-evaluation: The patient is not ill-appearing. He is not clinically dehydrated. He was asking for food and the room with the television in it. I will treat him with a Zofran pack until he can get his prescriptions and oral hydration. His abdominal exam is benign. Differential Diagnosis: Partial list of the Differential diagnosis considered include but were not limited to; dehydration, cyclic vomiting, malingering, peptic ulcer disease, substance abuse and although unlikely based on the history and physical exam, I also considered infection, head injury, gastroparesis, appendicitis. - Data Points Medications Given: Discontinued Medications Ondansetron HCl (Zofran Odt 4 Mg Prepack#2) 1 btl [facility] ONE Stop: 12/17/17 17:01 Last Admin: 12/17/17 17:13 Dose: 1 btl Departure - Departure Disposition: Home, Routine, Self-Care Clinical Impression: Cyclical vomiting Qualifiers: Vomiting Intractability: non-intractable Nausea presence: with nausea Qualified Code(s): G43.A0 - Cyclical vomiting, not intractable Condition: Fair Instructions: Ondansetron (By mouth), Cyclic Vomiting Syndrome (ED) Referrals: NONE *PRIMARY CARE P,. [Primary Care Provider] - As per Instructions [facility],. [Clinic] - As per Instructions
== END 2017-12-17 17:18 | disposition home or self-care (01) ==
LOC: CED 16:37
DX: G43.A0 Cyclical vomiting, in migraine, not intractable (principal); F17.200 Nicotine dependence, unspecified, uncomplicated; Z79.01 Long term (current) use of anticoagulants

== ENCOUNTER 2018-04-24 18:01 | Observation (INO) | payer MEDICAID ==
--- NOTE | 2018-04-24 18:29 | EDPHY ---
H & P Stated Complaint: Generalized abdominal cramping and lower back pain x 6 hours Time Seen by Provider: 04/24/18 18:12 HPI/ROS: CHIEF COMPLAINT: Abdominal pain, loss of appetite, sense of fullness since yesterday and along with vomiting since noon today. HISTORY OF PRESENT ILLNESS: This is an unfortunate 53-year-old gentleman with an extensive recurring problem of more or less idiopathic nausea vomiting most likely representing cyclic vomiting syndrome in the setting of chronic and concurrent marijuana use. He states at times he will go marijuana free for several days when he gets so sick but it has not helped him long-term. I have tried to redirect him that indeed this is a long-term problem and that he has to completely stop it. Since his discharge from the ER here on April 04 did pretty well. His back to his normal work wear history as well as food in relative alcohol/marijuana intake. However, beginning yesterday he started feeling on well with a general sense of fullness and anorexia. This progressed to inability eat and then subsequently beginning at noon today he started having repetitive episodes of emesis. P: Worse today with eating Q: Achiness all over especially the upper half of the abdomen R: No radiation to the back S: Moderate severe T: Progressive the last 36 hr Old charts reviewed. He was seen here on April 04 for similar syndrome with negative workup to include EKG and troponin. Again, he was found to be anemic. He received IV Zofran, IV fluids, and pantoprazole with some relief. Old charts reviewed. Approximately a year ago he had a upper GI endoscopy showing mild gastritis. At the time the salesforce consultant notes that he has has cyclic vomiting. Further, he has been anemia for approximately 18 months. REVIEW OF SYSTEMS: Constitutional: No fever, no chills. Eyes: No discharge No diplopia ENT: No sore throat. Cardiovascular: No chest pain, no palpitations. Respiratory: No cough, shortness of breath, or wheezing. Gastrointestinal: See above Genitourinary: No hematuria or frequency. Musculoskeletal: No back pain. Skin: No rashes. Neurological: No headache. A 10 system review of systems was performed and is negative except for the noted findings in the HPI. Source: Patient - Personal History Current Tetanus Diphtheria and Acellular Pertussis (TDAP): Yes Tetanus Vaccine Date: 2014 - Medical/Surgical History Hx Asthma: No Hx Chronic Respiratory Disease: No Hx Diabetes: No Hx Cardiac Disease: No Hx Renal Disease: No Hx Cirrhosis: No Hx Alcoholism: Yes Hx HIV/AIDS: No Hx Splenectomy or Spleen Trauma: No Other PMH: Alcoholism, cyclic vomiting, GASTROENTERITIS, blood clot - Family History Significant Family History: No pertinent family hx - Social History Smoking Status: Heavy smoker Alcohol Use: Heavy Drug Use: Marijuana - Physical Exam Exam: General Appearance: Alert, though mildly diaphoretic, his eyegrounds do not show pallor. Afebrile. Normal phonation. No respiratory distress. Eyes: Pupils equal and round no pallor or injection. No icterus ENT, Mouth: Mucous membranes moderately dry Pharynx without erythema or exudate. TM Clear. Neck: No adenopathy. Supple. No JVD. Trachea in midline. Respiratory: There are no retractions, lungs are clear to auscultation. Chest wall: Nontender to palpation. No crepitus. Cardiovascular: Regular rate and rhythm, without murmur Abdomen: Though the abdomen is soft without rebound or guarding there is diffuse upper abdominal tenderness. Neurological: Ox3. No motor weakness. Sensation intact. Gait nl. Skin: Warm and dry, no rashes. Musculoskeletal: No joint swelling. Extremities: No edema. Homans sign negative. No cords. Psychiatric: Normal affect. Patient is oriented X 3. There is no agitation Constitutional: Initial Vital Signs Temperature (C) 36.5 C 04/24/18 18:05 Heart Rate 96 04/24/18 18:05 Respiratory Rate 16 04/24/18 18:05 Blood Pressure 139/95 H 04/24/18 18:05 O2 Sat (%) 98 04/24/18 18:05 O2 Delivery Mode Room Air Allergies/Adverse Reactions: No Known Allergies Allergy (Verified 04/24/18 18:05) Home Medications: Medication Instructions Recorded NK [No Known Home Meds] 04/24/18 Medical Decision Making ED Course/Re-evaluation: Due to his diaphoresis and near syncope along with clinical findings dehydration with mucous membranes he started on protocol 2 L of IV fluids. He also received antiemetics no weight Zofran 8 mg and pantoprazole 30 mg. On re-examination he continued to have moderate nausea although no more emesis or retching. Thus he is given Reglan 10 mg IV. Laboratory studies included the following: BUN of 21 Creatinine of 1.6 verses a point of care creatinine of 1.0 just 2 weeks ago CO2 of 13 Anion gap of 17 Lipase is pending In view of the acute kidney injury and extensive dehydration the recommendation is for overnight observation status admission to [facility] for continuous IV fluids and introduction of clear liquid. The patient agrees. He has no transportation. Besides, it is best that he goes by ambulance. Case was discussed with Dr. Arguelles of the hospitalist service at [facility], except patient. Differential Diagnosis: Differential diagnosis includes, but is not limited to: Gastroenteritis, dehydration, diverticulitis, hepatitis, pancreatitis, renal colic, kidney stones, ureterolithiasis, cholecystitis, gastritis, cyclic vomiting. - Data Points Laboratory Results: Laboratory Results 04/24/18 19:08 04/24/18 04/24/18 04/24/18 19:08 18:41 18:40 WBC 7.74 10^3/uL 10^3/uL (3.80-9.50) RBC 5.00 10^6/uL 10^6/uL (4.40-6.38) Hgb 11.4 g/dL L g/dL (13.7-17.5) Hct 36.3 % L % (40.0-51.0) MCV 72.6 fL L fL (81.5-99.8) MCH 22.8 pg L pg (27.9-34.1) MCHC 31.4 g/dL L g/dL (32.4-36.7) RDW 21.1 % H % (11.5-15.2) Plt Count 420 10^3/uL H 10^3/uL (150-400) MPV 11.1 fL fL (8.7-11.7) Neut % (Auto) 71.9 % % (39.3-74.2) Lymph % (Auto) 19.9 % % (15.0-45.0) Hooker % (Auto) 7.2 % % (4.5-13.0) Eos % (Auto) 0.1 % L % (0.6-7.6) Baso % (Auto) 0.5 % % (0.3-1.7) Nucleat RBC Rel Count 0.0 % % (0.0-0.2) Absolute Neuts (auto) 5.56 10^3/uL 10^3/uL (1.70-6.50) Absolute Lymphs (auto) 1.54 10^3/uL 10^3/uL (1.00-3.00) Absolute Monos (auto) 0.56 10^3/uL 10^3/uL (0.30-0.80) Absolute Eos (auto) 0.01 10^3/uL L 10^3/uL (0.03-0.40) Absolute Basos (auto) 0.04 10^3/uL 10^3/uL (0.02-0.10) Absolute Nucleated RBC 0.00 10^3/uL 10^3/uL (0-0.01) Immature Gran % 0.4 % % (0.0-1.1) Immature Gran # 0.03 10^3/uL 10^3/uL (0.00-0.10) POC Sodium 135 mEq/L mEq/L (135-145) POC Potassium 3.8 mEq/L mEq/L (3.3-5.0) POC Chloride 105.0 mEq/L mEq/L (97-110) POC Total CO2 13 mEq/L L mEq/L (22-31) POC BUN 21 mg/dL mg/dL (7-23) POC Creatinine 1.6 mg/dL H mg/dL (0.7-1.3) POC Glucose 124 mg/dL H mg/dL (70-100) POC Calcium 11.1 mg/dL H mg/dL (8.5-10.4) POC Total Bilirubin 0.9 mg/dL mg/dL (0.1-1.4) POC AST 39 IU/L IU/L (17-59) POC ALT 33 IU/L IU/L (21-72) POC Alk Phosphatase 91 IU/L IU/L (38-126) POC Total Protein 8.9 g/dL H g/dL (6.3-8.2) POC Albumin 4.6 g/dL g/dL (3.5-5.0) Lipase 80 IU/L IU/L (23-300) Medications Given: Sodium Chloride (Ns) 1,000 mls @ 1,000 mls/hr IV CONT SREE Stop: 10/21/18 18:29 Last Admin: 04/24/18 18:40 Dose: 1,000 mls Discontinued Medications Metoclopramide HCl (Reglan Injection) 10 mg IVP EDNOW ONE Stop: 04/24/18 19:38 Last Admin: 04/24/18 19:42 Dose: 10 mg Ondansetron HCl (Zofran) 8 mg IVP ONCE ONE Stop: 04/24/18 18:31 Last Admin: 04/24/18 18:40 Dose: 8 mg Pantoprazole Sodium (Protonix) 40 mg IVP EDNOW ONE Stop: 04/24/18 18:31 Last Admin: 04/24/18 18:40 Dose: 40 mg Point of Care Test Results: Chemistry 04/24/18 18:41 POC Sodium 135 mEq/L mEq/L (135-145) POC Potassium 3.8 mEq/L mEq/L (3.3-5.0) POC Chloride 105.0 mEq/L mEq/L (97-110) POC Total CO2 13 mEq/L L mEq/L (22-31) POC BUN 21 mg/dL mg/dL (7-23) POC Creatinine 1.6 mg/dL H mg/dL (0.7-1.3) POC Glucose 124 mg/dL H mg/dL (70-100) POC Calcium 11.1 mg/dL H mg/dL (8.5-10.4) POC Total Bilirubin 0.9 mg/dL mg/dL (0.1-1.4) POC AST 39 IU/L IU/L (17-59) POC ALT 33 IU/L IU/L (21-72) POC Alk Phosphatase 91 IU/L IU/L (38-126) POC Total Protein 8.9 g/dL H g/dL (6.3-8.2) POC Albumin 4.6 g/dL g/dL (3.5-5.0) Departure - Departure Disposition: [facility] Acute Clinical Impression: Dehydration, severe, Acute kidney injury, Chronic anemia Abdominal pain Qualifiers: Abdominal location: upper abdomen, unspecified Qualified Code(s): R10.10 - Upper abdominal pain, unspecified Cyclic vomiting syndrome Qualifiers: Vomiting Intractability: intractable Nausea presence: with nausea Qualified Code(s): G43.A1 - Cyclical vomiting, intractable Condition: Fair
[2018-04-24] MEDS ORDERED: NS 1,000 ML IV SCH (18:30)
[2018-04-24] MEDS ORDERED: PANTOPRAZOLE SODIUM 40 MG VIAL IVP ONE (18:30)
[2018-04-24] MEDS ORDERED: ONDANSETRON 4 MG/2 ML VIAL IVP ONE (18:30)
[2018-04-24 19:36] LABS: PLATELET COUNT 420 10^3/uL (150-400)
[2018-04-24] MEDS ORDERED: METOCLOPRAMIDE 10 MG/2 ML VIAL IVP ONE (19:37)
[2018-04-24] MEDS ORDERED: PROMETHAZINE HCL 25 MG/ML INJ IVP PRN (22:24)
[2018-04-24] MEDS ORDERED: LORazepam 2 MG/ML INJ IVP PRN (22:24)
[2018-04-24] MEDS ORDERED: ONDANSETRON 4 MG/2 ML VIAL IVP PRN (22:24)
[2018-04-24] MEDS ORDERED: ACETAMINOPHEN 325 MG TAB PO PRN (22:24)
[2018-04-24] MEDS: NS 1,000 ML IV SCH (22:51)
[2018-04-25] MEDS ORDERED: MAGNESIUM HYDROXIDE 30 ML UDCUP PO PRN (01:30)
[2018-04-25] MEDS ORDERED: LACTULOSE 20 GM/30 ML UDCUP PO PRN (01:30)
[2018-04-25] MEDS ORDERED: POLYETHYLENE GLYCOL 3350 17 GM PKT PO PRN (01:30)
[2018-04-25] MEDS ORDERED: BISACODYL 10 MG SUPP PR PRN (01:30)
--- NOTE | 2018-04-25 02:30 | GHP ---
DATE OF ADMISSION: 04/24/2018 SOURCE: Patient is able to provide a majority of the history and is a fair historian. EMR was revie wed and case discussed with ED provider. Patient is known to me from previous admission in May 24. Case was discussed with accepting hospitalist provider and EMR was reviewed. CHIEF COMPLAINT: Abdominal pain, vomiting. HISTORY OF PRESENT ILLNESS: This is a 53-year-old gentleman with a past medical history significant for alcohol dependence, tobacco abuse, cannabinoid dependence with associated cannabis hyperemesis sy ndrome versus cyclic vomiting, gastritis, who presents to the emergency department at [facility] today with complaints of mid right abdominal pain as well as intractable nausea and vomitin g. Patient reports that he has been having some decreased appetite and early satiety today. He does have a history of recurrent intermittent episodes of nausea and vomiting. He continues to utilize a lcohol and cannabis despite having been advised to quit both. The patient denies any fevers, chills. No diarrhea. He actually notes some constipation. Last bowel movement approximately 2 days ago. Currently, patient has received Phenergan and Ativan. He is resting comfortably. He reports that hi s abdominal pain is completely resolved and he has been able to tolerate some sips of clears at this time. He is mostly complaining that he is feeling so tired he just wants to sleep. REVIEW OF SYSTEMS: A 10-point review of systems negative except as noted above. ALLERGIES: No known drug allergies. HOME MEDICATIONS: Omeprazole, Tylenol p.r.n. PAST MEDICAL HISTORY: Significant for alcohol dependence with history of alcohol ketosis, acute kidn ey injury, cyclic vomiting, whether this is idiopathic versus cannabinoid hyperemesis related, histor y of DVT in the right lower extremity, not currently on anticoagulation, history of GI bleeding, hist ory of tobacco abuse, gastritis, GERD, anemia. PAST SURGICAL HISTORY: Significant for EGD. FAMILY HISTORY: Negative for GI issues or cancer. SOCIAL HISTORY: Patient is , lives with spouse. He continues to smoke 1 pack per day or a li ttle less tobacco use, 2-3 beers, whether that is 12 or 24 ounce depends on the day, continues to dri nk this daily. No plans to quit and continues to use high amounts of cannabis on a daily basis isabeli ng. CODE STATUS: Full. Patient wants his to be proxy. PHYSICAL EXAMINATION: VITAL SIGNS: Upon arrival to the emergency department at [facility] nter, blood pressure 139/95, heart rate is 96, respiratory rate 16, O2 saturation 98% on room air wit h temperature 36.5. Current vitals available in the floor, blood pressure 136/84, heart rate 85, res piratory rate 18, O2 saturation 95% on room air, temperature 36.6. GENERAL: No acute distress. Chica shelby is lying quietly in bed on his side. He is asleep, resting comfortably. He is a little bit donovan ggy, but wakes up and answers questions appropriately. HEAD: Normocephalic, atraumatic. EYES: Ext raocular muscles are grossly intact. Pupils equal, round decreased reactivity to light bilaterally, but symmetric. No scleral icterus or conjunctival injection. ENT: Mucous membranes appear moist. No oropharyngeal erythema or exudates. Dentition in fair condition. NECK: Supple. Trachea midline . CV: Regular rate and rhythm. No murmurs, rubs, or gallops appreciated. RESPIRATORY: Unlabored breathing. Lungs are clear to auscultation bilaterally. No wheezes, rales, or rhonchi. ABDOMEN: P ositive bowel sounds. Soft, obese abdomen, nondistended. No tenderness to palpation. : No Perez catheter in place. No suprapubic tenderness to palpation. EXTREMITIES: No cyanosis, clubbing, or e dhruv appreciated. 2+ pedal pulses bilaterally and symmetric. NEUROLOGIC: Grossly nonfocal. Moves all extremities. No facial drooping. NEUROLOGIC: Affect slightly flat. Patient is slightly sleepy , but awakes and answers questions appropriately. LABORATORY STUDIES: WBC 7.74, H and H is 1.4 and 36.3. Most recent H and H previously from 04/04/20 18 ED visit was 11.1 and 34.9, MCV 72.6, platelet count is 420. Point of care CMP, sodium 135, potas sium 3.8, chloride is 105, CO2 is 13, BUN 21, creatinine is 1.6 previous baseline of 0.8, glucose 124 , calcium is 11.1, total bilirubin 0.9, ALT is 33, AST is 39, alkaline phosphatase is 91, total prote in 8.9, albumin is 4.6, lipase is 88. ASSESSMENT AND PLAN: This is a 53-year-old gentleman with history of numerous emergency department v isits and hospital stays last year for treatment of cyclic vomiting, abdominal pain, who presents wit h complaints of right-sided abdominal pain and vomiting today, now resolved. 1. Cyclic vomiting. The patient has previously and on multiple occasions been encouraged to quit dr rosado and utilizing cannabis in its entirety, which is likely contributing to his symptoms. He does have a documented history of gastritis. Previously in May he underwent EGD, which was positive for this finding. He is on omeprazole, which we plan to continue once medication reconciliation is a vailable for reconciliation. Currently, patient's symptoms are completely resolved. He is toleratin g some sips and continue and advance diet as tolerated. Continue with Zofran, Phenergan, Ativan p.r. n. nausea and vomiting, if it remains intractable, but at this time he is resting quietly and comfort ably. 2. Acute kidney injury, likely prerenal in setting of recent nausea, vomiting, dehydration. Continu e with IV fluid support overnight and repeat a BMP in the morning. 3. Abdominal pain, likely related to patient's intractable nausea and vomiting. At this time, his s ymptoms are completely resolved. Lipase is within normal. LFTs are also normal and abdominal exam i s soft and benign. 4. Constipation. Bowel program has been ordered. Start in the morning. 5. Gastroesophageal reflux disease and history of gastritis. Continue PPI as noted above. 6. Alcohol dependence. Patient not interested in cessation. 7. Cannabinoid abuse dependence. Cessation also encouraged as noted above. 8. Anemia, stable. Previously was recommended that patient followup with his primary care provider for further evaluation and consideration. He has not had any complaints of hematemesis at this time. Will defer further evaluation back to PCP. 9. Fluid, electrolyte, nutrition. IV fluids as noted above. Start with clears on a diet and sips a s tolerated, advance as tolerated to regular. Electrolytes at this time are adequate. Do not requir e any replacement. We will monitor. 10. Prophylaxis. SCDs. Anticipate short hospital stay. The patient also has a history of GI bleed ing, so will avoid any anticoagulation at this time. 11. Code status full. 12. Disposition. Patient admitted to observation on the medical floor at this time for management o f dehydration and his symptoms of nausea and vomiting, which have currently been controlled. /[id number]/MODL
[2018-04-25 05:17] LABS: PLATELET COUNT 344 10^3/uL (150-400)
[2018-04-25] MEDS: NS 1,000 ML IV SCH (05:50)
[2018-04-25] MEDS ORDERED: SENNOSIDES/DOCUSATE SODIUM TAB PO SCH (09:00)
[2018-04-25 09:29] VITALS: BP 113/76
--- NOTE | 2018-04-25 10:37 | ASMTCMCOM ---
CM Note CM Note Notes: 04/25/2018 Case Management Note Reviewed chart, discussed with charge entry specialist. Pt admitted for management of cyclic vomiting. There are no case management d/c needs identified d/t pt age, marital status and independence with ADL's prior to admission. There are no therapy evals ordered at this time. Referral to [facility] for outpatient behavioral health supports. Case Management d/c poc: independent with follow up as directed. Case Management available if needs change. Date Signed: 04/25/2018 10:36 AM Electronically Signed By:Yeny Hernandez RN
--- NOTE | 2018-04-25 11:53 | PDDCSUM ---
Discharge Summary Discharge Summary: Date of service 04/25/18 Consultations/procedures: none Hospital course by problem: 53 yo M with hx of cyclic vomiting admitted with n/v # n/v: with hx of cyclic vomiting likely related to marijuana hyperemesis syndrome, sxs had resolved, patient tolerating diet and asking to be discharged home # mickey: 2/2 above and resolved with IVF # gerd: continued on PPI # alcohol/marijuana use disorder: not interested in cessation at this time DC home f/u with PCP
[2018-04-25] MEDS ORDERED: PANTOPRAZOLE SODIUM 40 MG TAB PO SCH (12:00)
--- NOTE | 2018-04-25 15:18 | ASDISCHSUM ---
Discharge Information Plan Status:Home with No Needs Medically Cleared to Leave:04/25/2018 Discharge Date:04/25/2018 12:18 PM CM D/C Disposition:Home, Routine, Self-Care ADT D/C Disposition:Home, Routine, Self-Care Projected Discharge Date:04/25/2018 12:18 PM Transportation at D/C:Family Discharge Delay Reason: Follow-Up Date:04/25/2018 12:18 PM Discharge Slot: Final Diagnosis: Placement Information Patient Contact Information Contact Name:DEMETRIO Relationship:Other Address: City: [facility] Phone: [facility]/Zip Code: [address] Email: Financial Information Financial Class:Medicaid Primary Plan Desc:MEDICAID HEALTH FIRST COPYWRITER Primary Plan Number:[id number] Secondary Plan Desc: Secondary Plan Number: Assessment Information LACE LACE Length of stay for Answers: Less than 1 day current admission Acuity / Level of Answers: No Care: Did the patient have an inpatient admission? Comorbidities - select Answers: Other Notes: ETOH dependence, acute all that apply kidney injury, cyclic vomiting, THC, h/o GI bleed, gastritist, GERD , a nemia # of Emergency department Answers: 5-8 visits in the last 6 months Social determinants Answers: History of substance abuse (ETOH, street drugs, prescription drugs, etc.) Score: 8 Date Signed: 04/25/2018 03:17 PM Electronically Signed By:Yeny Hernandez RN [facility] ORSEND[facility] Progress Note ROSENDO Manrique CM Note Notes: 04/25/2018 Case Management Note Reviewed chart, discussed with rim fire charger operator. Pt admitted for management of cyclic vomiting. There are no case management d/c needs identified d/t pt age, marital status and independence with ADL's prior to admission. There are no therapy evals ordered at this time. Referral to [facility] for outpatient behavioral health supports. Case Management d/c poc: independent with follow up as directed. Case Management available if needs change. Date Signed: 04/25/2018 10:36 AM Electronically Signed By:Yeny Hernandez RN Intervention Information
[2018-04-25] MEDS ORDERED: PANTOPRAZOLE SODIUM 40 MG TAB PO PRN (16:00)
== END 2018-04-25 12:18 | disposition home or self-care (01) ==
LOC: CED 18:01 → CEDHOLD 20:29 → F1N 22:10
PROVIDERS: ADMIT Internal Medicine; ATTEND Internal Medicine
DX: K31.89 Other diseases of stomach and duodenum (principal); R11.2 Nausea with vomiting, unspecified; F12.288 Cannabis dependence with other cannabis-induced disorder; E86.0 Dehydration; N17.9 Acute kidney failure, unspecified; F17.210 Nicotine dependence, cigarettes, uncomplicated; D64.9 Anemia, unspecified; K21.9 Gastro-esophageal reflux disease without esophagitis; F10.20 Alcohol dependence, uncomplicated
CPT/HCPCS: 96361; 96374; 96375; 99285; G0378; 80053-PO; J2060; J2405; J2550; J2765

== ENCOUNTER 2018-04-26 12:07 | Emergency (ER) | payer MEDICAID ==
[2018-04-26] MEDS ORDERED: ONDANSETRON DISINTEGRATING 4 MG TAB PO ONE (12:28)
--- NOTE | 2018-04-26 13:40 | EDPHY ---
H & P Stated Complaint: nausea,vomiting, abd pain since 9pm last night Time Seen by Provider: 04/26/18 12:22 HPI/ROS: Chief Complaint: Nausea, vomiting, abdominal pain HPI: 53-year-old male well known to this emergency department with a history of cannabinoid hyperemesis and gastritis. Patient was just a admitted overnight and discharged yesterday from [facility] for an exacerbation of nausea vomiting. Patient states he is tolerating p.o. Yesterday but we went home last night he started having some more nausea. He says he has vomited since then has not been able to keep anything down. He is also complaining of some generalized abdominal pain. No fevers or chills. No cough or chest pain. No shortness of breath. He states that his last marijuana alcohol use was 4 days ago. He denies using after he was discharged from the hospital yesterday. ROS: 10 systems were reviewed and were negative except those elements noted in the HPI. PMH: Hyperemesis, cyclic vomiting syndrome Social History: Positive smoking, positive alcohol, positive heavy marijuana Family History: non-contributory Physical Exam: Gen: Awake, Alert, No Distress HEENT: Nose: no rhinorrhea Eyes: PERRLA, EOMI Mouth: Moist mucosa Neck: Supple, no JVD Chest: nontender, lungs clear to auscultation Heart: S1, S2 normal, no murmur Abd: Soft, non-tender, no guarding Back: no CVA tenderness, no midline tenderness Ext: no edema, non-tender Skin: no rash Neuro: CN II-XII intact, Sensation grossly intact, Strength 5/5 in bilateral upper and lower extremities - Personal History Current Tetanus Diphtheria and Acellular Pertussis (TDAP): Yes Tetanus Vaccine Date: 2014 - Medical/Surgical History Hx Asthma: No Hx Chronic Respiratory Disease: No Hx Diabetes: No Hx Cardiac Disease: No Hx Renal Disease: No Hx Cirrhosis: No Hx Alcoholism: Yes Hx HIV/AIDS: No Hx Splenectomy or Spleen Trauma: No Other PMH: Alcoholism, cyclic vomiting, GASTROENTERITIS, blood clot - Social History Smoking Status: Heavy smoker Constitutional: Initial Vital Signs Temperature (C) 36.5 C 04/26/18 12:14 Heart Rate 82 04/26/18 12:14 Respiratory Rate 14 04/26/18 12:14 Blood Pressure 111/73 04/26/18 12:14 O2 Sat (%) 97 04/26/18 12:14 O2 Delivery Mode Room Air Allergies/Adverse Reactions: No Known Allergies Allergy (Verified 04/26/18 12:18) Home Medications: Medication Instructions Recorded Acetaminophen [Tylenol 325mg (*)] 650 mg PO Q4HRS PRN tab 04/25/18 Ibuprofen [Motrin (*)] 200 - 400 mg PO Q6H PRN 04/25/18 Ondansetron Odt [Zofran Odt 4 mg 4 mg PO Q4 PRN 04/25/18 (*)] Pantoprazole Sodium [Protonix 40mg 40 mg PO DAILY 04/25/18 (*)] Pantoprazole Sodium [Protonix 40mg 40 mg PO DAILY@1600 PRN 04/25/18 (*)] Promethazine HCl [Phenergan] 25 mg RC PRN PRN 04/25/18 Ondansetron Odt [Zofran Odt 4 mg 4 mg PO Q4 PRN #10 tab 04/26/18 (*)] Medical Decision Making ED Course/Re-evaluation: Patient was given the Zofran ODT here. He tolerated it well. He was not tolerating oral fluids. He was resting and comfort. He is asking for a blanket and for the lytes to be turned off. He is also asking for a rowena aislinn. Patient will be discharged with prescription for oral Zofran. I have encouraged him to discontinue using alcohol and marijuana. He will follow up with primary care physician for any concerns. - Data Points Medications Given: Discontinued Medications Ondansetron HCl (Zofran Odt) 4 mg PO EDNOW ONE Stop: 04/26/18 12:29 Last Admin: 04/26/18 13:00 Dose: 4 mg Departure - Departure Disposition: Home, Routine, Self-Care Clinical Impression: Nausea & vomiting Condition: Good Instructions: Acute Nausea and Vomiting (ED) Additional Instructions: Follow up with primary care physician in 3-4 days for further evaluation. Referrals: [facility],. [Clinic] - As per Instructions Prescriptions: Ondansetron Odt [Zofran Odt 4 mg (*)] 4 mg PO Q4 PRN #10 tab PRN Reason: nausea
[2018-04-26 13:47] VITALS: BP 109/74
== END 2018-04-26 13:45 | disposition home or self-care (01) ==
LOC: CED 12:07
DX: R11.2 Nausea with vomiting, unspecified (principal); F17.210 Nicotine dependence, cigarettes, uncomplicated; F10.20 Alcohol dependence, uncomplicated; F12.10 Cannabis abuse, uncomplicated

== ENCOUNTER 2019-01-04 06:48 | Emergency (ER) | payer MEDICAID ==
[2019-01-04] MEDS ORDERED: PANTOPRAZOLE SODIUM 40 MG VIAL IVP ONE (07:28)
[2019-01-04] MEDS ORDERED: ONDANSETRON 4 MG/2 ML VIAL IVP ONE (07:28)
[2019-01-04] MEDS ORDERED: NS 1,000 ML IV ONE ×2 (07:28→08:24)
--- NOTE | 2019-01-04 07:36 | EDPHY ---
H & P Stated Complaint: Nausea and vomiting x 1 day Time Seen by Provider: 01/04/19 06:56 HPI/ROS: CHIEF COMPLAINT: Nausea vomiting. History of cannabis hyperemesis syndrome as well as known alcoholic gastritis HISTORY OF PRESENT ILLNESS: This is a 53-year-old gentleman well known to this department for repeat visits of essentially the same thing. He has had a longstanding history of cannabis hyperemesis syndrome however he continues to declined any treatment for chronic use. Furthermore he is known to have a problem with alcohol as he is a heavy drinker and there has been suspicion for alcoholic gastritis. However at the same time, he is not known to have had pancreatitis before. Finally, CT scans in the past have not shown him to have gallstone disease. He does not recall having had an ultrasound. Last visit here for this was April of 2018. However he did have an admission to [facility] in June of 2018. Of note is that his son was ill yesterday on the and had be seen here on the for nausea vomiting but no diarrhea. His son is since improved. This particular illness started for him yesterday at 1:00 p.m. We had onset of vomiting without pain. However by the evening he was developing an epigastric pain that would wax and wane related to his vomiting with some improvement with the vomiting. As we get particularly bad he would feel a discomfort going into the back of the shoulder blade areas rather than straight back through to the mid back. This was notably transient and did go on seconds. At no point was there any shortness of breath or diaphoresis. There is no radiation of the abdominal pain into the lower abdomen is. He has had no diarrhea or hematemesis or hematochezia or melena or bright red blood per rectum He has not had any Zofran at home in order to manage this. He did try some Pepto-Bismol this morning but he managed to vomit that up. At no point has he seen any Coffee-grounds or hematemesis. Travel: None Others: His son was seen here yesterday for nausea vomiting as well, without diarrhea. He apparently is better. Antibiotics: None Bad Food: None Bad Water: None Recent Surgery: None REVIEW OF SYSTEMS: Constitutional: No fever, no chills. Eyes: No discharge ENT: No sore throat. Cardiovascular: No chest pain, no palpitations. Respiratory: No cough, shortness of breath, or wheezing. Gastrointestinal: See above Genitourinary: No hematuria or frequency. Musculoskeletal: No back pain. Skin: No rashes. Neurological: No headache. A 10 system review of systems was performed and is negative except for the noted findings in the HPI. Source: Patient Exam Limitations: No limitations - Personal History Current Tetanus Diphtheria and Acellular Pertussis (TDAP): Yes Tetanus Vaccine Date: 2014 - Medical/Surgical History Hx Asthma: No Hx Chronic Respiratory Disease: No Hx Diabetes: No Hx Cardiac Disease: No Hx Renal Disease: No Hx Cirrhosis: No Hx Alcoholism: Yes Hx HIV/AIDS: No Hx Splenectomy or Spleen Trauma: No Other PMH: Alcoholism, GERD, cyclic vomiting, GASTROENTERITIS, blood clot of the leg. - Family History Significant Family History: No: Heart disease, Diabetes - Social History Smoking Status: Heavy smoker Alcohol Use: Heavy Drug Use: Marijuana (Known hyperemesis syndrome due to Cannabis.) - Physical Exam Exam: General Appearance: Alert, mild distress with little diaphoresis in the forehead on the cheeks. He does not appear pale. His membranes are dry.. Afebrile. Normal phonation. No respiratory distress. Eyes: Pupils equal and round no pallor or injection. No icterus ENT, Mouth: Mucous membranes moderately dry Pharynx without erythema or exudate. TM Clear. Neck: No adenopathy. Supple. No JVD. Trachea in midline. Respiratory: There are no retractions, lungs are clear to auscultation. Cardiovascular: Regular rate and rhythm, without murmur. Abdomen: Soft mild tenderness in bilateral upper quadrants right greater than left, no masses, rebound or guarding. Bowel sounds normal. Femoral pulses equal. Neurological: Ox3. No motor weakness. Sensation intact. Gait nl. Skin: Warm and dry, no rashes. Musculoskeletal: No joint swelling. Extremities: No edema. Homans sign negative. No cords. Psychiatric: Normal affect. Patient is oriented X 3. There is no agitation Constitutional: Initial Vital Signs Temperature (C) 36.6 C 01/04/19 06:56 Heart Rate 61 01/04/19 06:56 Respiratory Rate 18 01/04/19 06:56 Blood Pressure 136/81 H 01/04/19 06:56 O2 Sat (%) 98 01/04/19 06:56 O2 Delivery Mode Room Air Allergies/Adverse Reactions: No Known Allergies Allergy (Verified 01/04/19 06:58) Home Medications: Medication Instructions Recorded Ondansetron Odt [Zofran Odt 4 mg 4 mg PO Q4 PRN #10 tab 01/04/19 (*)] Promethazine HCl 25 mg PO Q6H PRN #10 tablet 01/04/19 Medical Decision Making - Diagnostics EKG Interpretation: EKG: Interpreted by me contemporaneously. Rhythm: Normal sinus rhythm. Heart rate 60 QTc 416 QRS: normal STT segment: J-point changes, as seen on prior EKGs T Waves: Normal J-point changes Q waves none Summary: Normal Ekg ED Course/Re-evaluation: After intial Eval, a bit of time for IV access, thus: - trial of nasal inhaled Isopropyl Alcohol for nausea. - EKG = early repolarization, unchangfed, with nl QT = 419 - Serracoult mild + on gastric contents with + control, performed by me = thus will send to [facility] lab along with Lipase, mag and alcohol. Thus, when IV access started, given IV Zofran as well as started on IV pantoparazole. Old charts reviewed. Seen here multiple times of N and V felt to be due to Cannabis and/or alcoholic gastritis. Screen neg for infectious cause, except son was ill yesterday. Pt reports he had neg GI study about a year ago, though does not know if this was EGD or Colonoscopy or both. Old charts were attempted to be reviewed from the [facility] web site: CT scan January 2018 showed: -fatty liver -normal bile ducts - diverticula without diverticulitis Urinalysis did reveal: 4+ ketones 2+ protein Concentrated specimen specific gravity to 1.030. Laboratory studies: Sodium 137 CO2 of 17 Chloride 99 Anion gap 21 Potassium 4.6 Creatinine 0.8 CBC: Hemoglobin 10.7. He continued to be anemic. I had attempted through the [id number] [employer] web site to find his prior age ED/colonoscopy studies but have been unable to. Given his frequent admissions to this facility as well as elsewhere on worried that he might be following between the crack so will try to pursue a phone contact with his PCP to review those results. However, when asked he says he never bother doing any follow up. Further laboratory studies included: Normal troponin 0.01 Normal lipase Normal magnesium Slightly elevated AST Normal ALT In light of the anion gap as well as decreased CO2 and 4+ ketones my plan will be to hydrate him for 3 L, medicate him aggressively so that he can is able to take p.o. Fluids as well as food to mitigate the ketonemia. He reported market improvement with the Zofran 8 mg IV. However a when he got up he still felt somewhat nauseated thus we follow-up with Phenergan 12.5 mg. Follow-up assessment a labs at 10:30 a.m. Show: Drop in hemoglobin to 9.9 as from dilution Persistent low CO2 of 17 Subsequent laboratories include normal lipase and magnesium Anion gap now down to 13 Patient feels markedly better and would like to try p.o. Foods. Thereafter we will test urine. Ultimately the recheck labs showed the following: Resolved anion gap Persistent low CO2 Specific gravity still 1.013 Improved ketones from 4+ to 3+ Met with the patient. I expressed my concern as he has had a propensity to "bounce back" and get worse again when he goes home. However he maintains he would like to go home as he has done well here, maintained fluids, been able to eat, and has had no more emesis since the Phenergan. Thereby will place him on the following regimen: Clear liquids, advance diet, Zofran or Phenergan, and close follow-up for anemia and GI evaluation regarding need for colonoscopy. Differential Diagnosis: Differential diagnosis includes, but is not limited to: Gastroenteritis, dehydration, diverticulitis, hepatitis, pancreatitis, cholecystitis, appendicitis, gastritis, mesenteric adenitis, food poisoning, cannabis hyperemesis syndrome with cyclic vomiting. - Data Points Laboratory Results: Laboratory Results 01/04/19 07:45 01/04/19 01/04/19 01/04/19 10:12 07:45 07:45 WBC 8.15 10^3/uL 10^3/uL (3.80-9.50) RBC 4.88 10^6/uL 10^6/uL (4.40-6.38) Hgb 10.6 g/dL L g/dL (13.7-17.5) POC Hgb 9.9 gm/dL L gm/dL (13.7-17.5) Hct 34.8 % L % (40.0-51.0) POC Hct 29 % L % (40-51) MCV 71.3 fL L fL (81.5-99.8) MCH 21.7 pg L pg (27.9-34.1) MCHC 30.5 g/dL L g/dL (32.4-36.7) RDW 20.0 % H % (11.5-15.2) Plt Count 350 10^3/uL 10^3/uL (150-400) MPV 10.6 fL fL (8.7-11.7) Neut % (Auto) 85.1 % H % (39.3-74.2) Lymph % (Auto) 10.2 % L % (15.0-45.0) [place] % (Auto) 3.6 % L % (4.5-13.0) Eos % (Auto) 0.0 % L % (0.6-7.6) Baso % (Auto) 0.6 % % (0.3-1.7) Nucleat RBC Rel Count 0.0 % % (0.0-0.2) Absolute Neuts (auto) 6.94 10^3/uL H 10^3/uL (1.70-6.50) Absolute Lymphs (auto) 0.83 10^3/uL L 10^3/uL (1.00-3.00) Absolute Monos (auto) 0.29 10^3/uL L 10^3/uL (0.30-0.80) Absolute Eos (auto) 0.00 10^3/uL L 10^3/uL (0.03-0.40) Absolute Basos (auto) 0.05 10^3/uL 10^3/uL (0.02-0.10) Absolute Nucleated RBC 0.00 10^3/uL 10^3/uL (0-0.01) Immature Gran % 0.5 % % (0.0-1.1) Immature Gran # 0.04 10^3/uL 10^3/uL (0.00-0.10) POC Sodium 140 mEq/L mEq/L (135-145) POC Potassium 3.6 mEq/L mEq/L (3.3-5.0) POC Chloride 110 mEq/L mEq/L (97-110) POC Total CO2 17 mEq/L L mEq/L (22-31) POC BUN 10 mg/dL mg/dL (7-23) POC Creatinine 0.6 mg/dL L mg/dL (0.7-1.3) POC Glucose 84 mg/dL mg/dL (70-100) POC Calcium Magnesium POC Total Bilirubin POC AST POC ALT POC Alk Phosphatase POC Troponin I POC Total Protein POC Albumin Lipase Gastric Occult Blood POSITIVE H (NEGATIVE) Ethyl Alcohol 01/04/19 01/04/19 01/04/19 07:45 07:26 07:26 WBC RBC Hgb POC Hgb Hct POC Hct MCV MCH MCHC RDW Plt Count MPV Neut % (Auto) Lymph % (Auto) [place] % (Auto) Eos % (Auto) Baso % (Auto) Nucleat RBC Rel Count Absolute Neuts (auto) Absolute Lymphs (auto) Absolute Monos (auto) Absolute Eos (auto) Absolute Basos (auto) Absolute Nucleated RBC Immature Gran % Immature Gran # POC Sodium 137 mEq/L mEq/L (135-145) POC Potassium 4.6 mEq/L mEq/L (3.3-5.0) POC Chloride 99.0 mEq/L mEq/L (97-110) POC Total CO2 17 mEq/L L mEq/L (22-31) POC BUN 13 mg/dL mg/dL (7-23) POC Creatinine 0.8 mg/dL mg/dL (0.7-1.3) POC Glucose 120 mg/dL H mg/dL (70-100) POC Calcium 11.0 mg/dL H mg/dL (8.5-10.4) Magnesium 2.2 mg/dL mg/dL (1.6-2.3) POC Total Bilirubin 0.6 mg/dL mg/dL (0.1-1.4) POC AST 67 IU/L H IU/L (17-59) POC ALT 37 IU/L IU/L (21-72) POC Alk Phosphatase 80 IU/L IU/L (38-126) POC Troponin I 0.00 ng/mL ng/mL (0.00-0.08) POC Total Protein 8.5 g/dL H g/dL (6.3-8.2) POC Albumin 4.4 g/dL g/dL (3.5-5.0) Lipase 48 IU/L IU/L (23-300) Gastric Occult Blood Ethyl Alcohol < 10 mg/dL mg/dL (0-10) Medications Given: Discontinued Medications Sodium Chloride (Ns) 1,000 mls @ 0 mls/hr IV ONCE ONE; Wide Open PRN Reason: Protocol Stop: 01/04/19 07:29 Last Admin: 01/04/19 07:34 Dose: 1,000 mls Sodium Chloride (Ns) 1,000 mls @ 0 mls/hr IV CONT SREE PRN Reason: TKO Stop: 07/03/19 08:29 Last Admin: 01/04/19 09:21 Dose: 1,000 mls Sodium Chloride (Ns) 1,000 mls @ 0 mls/hr IV ONCE ONE PRN Reason: Wide Open Stop: 01/04/19 08:25 Last Admin: 01/04/19 08:28 Dose: 1,000 mls Ondansetron HCl (Zofran) 8 mg IVP ONCE ONE Stop: 01/04/19 07:29 Last Admin: 01/04/19 07:34 Dose: 8 mg Pantoprazole Sodium (Protonix) 40 mg IVP EDNOW ONE Stop: 01/04/19 07:29 Last Admin: 01/04/19 07:39 Dose: 40 mg Promethazine HCl (Phenergan) 12.5 mg IVP EDNOW ONE Stop: 01/04/19 08:37 Last Admin: 01/04/19 08:42 Dose: 12.5 mg Point of Care Test Results: Chemistry 01/04/19 01/04/19 01/04/19 10:12 07:26 07:26 POC Sodium 140 mEq/L mEq/L 137 mEq/L mEq/L (135-145) (135-145) POC Potassium 3.6 mEq/L mEq/L 4.6 mEq/L mEq/L (3.3-5.0) (3.3-5.0) POC Chloride 110 mEq/L mEq/L 99.0 mEq/L mEq/L (97-110) (97-110) POC Total CO2 17 mEq/L L mEq/L 17 mEq/L L mEq/L (22-31) (22-31) POC BUN 10 mg/dL mg/dL 13 mg/dL mg/dL (7-23) (7-23) POC Creatinine 0.6 mg/dL L mg/dL 0.8 mg/dL mg/dL (0.7-1.3) (0.7-1.3) POC Glucose 84 mg/dL mg/dL 120 mg/dL H mg/dL (70-100) (70-100) POC Calcium 11.0 mg/dL H mg/dL (8.5-10.4) POC Total Bilirubin 0.6 mg/dL mg/dL (0.1-1.4) POC AST 67 IU/L H IU/L (17-59) POC ALT 37 IU/L IU/L (21-72) POC Alk Phosphatase 80 IU/L IU/L (38-126) POC Troponin I 0.00 ng/mL ng/mL (0.00-0.08) POC Total Protein 8.5 g/dL H g/dL (6.3-8.2) POC Albumin 4.4 g/dL g/dL (3.5-5.0) ISTAT H&H 01/04/19 10:12 POC Hgb 9.9 gm/dL L gm/dL (13.7-17.5) POC Hct 29 % L % (40-51) Comprehensive Metabolic Panel CMP Collection Date 01/04/19 CMP Collection Time 07:05 Urine Dip Collection Date 01/04/19 Collection Date 01/04/19 Collection Time 10:55 Collection Time 08:10 Specific [place] (1.002-1.030) 1.030 Specific [place] (1.002-1.030) 1.030 PH (5.0-7.5) 5.5 PH (5.0-7.5) 5.5 Leukocytes (Negative) Negative Leukocytes (Negative) Negative Nitrites (Negative) Negative Nitrites (Negative) Negative Protein (Negative) Trace Protein (Negative) 2+ Glucose (Negative) Negative Glucose (Negative) Negative Ketones (Negative) 3+ Ketones (Negative) 4+ Urobilnogen (0.2-1.0 EU) 0.2 Urobilnogen (0.2-1.0 EU) 0.2 Bilirubin (Negative) Test Not Performed Bilirubin (Negative) Test Not Performed Blood (Negative) Negative Blood (Negative) Negative Departure - Departure Disposition: Home, Routine, Self-Care Clinical Impression: Ivana-Morris syndrome Cyclical vomiting Qualifiers: Vomiting Intractability: intractable Nausea presence: with nausea Qualified Code(s): G43.A1 - Cyclical vomiting, intractable Condition: Good Instructions: Dehydration (ED), Ivana-Morris Syndrome (ED), Cyclic Vomiting Syndrome (ED) Additional Instructions: ANEMIA: Once again, you are anemic. I was able to find out that in May of 2017 you had an upper abdominal gastritis could be which did show alcoholic gastritis but no ulcer. Yes, at that time you were also anemic as well. However, evidently you had canceled a colonoscopy that was scheduled as an outpatient, about that time. Best as we can tell you have not had a colonoscopy for 5 years. Given the anemia it is time to get a colonoscopy. Please follow-up, Dr. Haley had seen you back in 2016, and again, he is on-call for today. Follow Up / PCP It is time to get a family doctor, again, as you are showing anemia. You deserve to have a family doctor like the rest of us. See referral for Dr. Agustin Nausea or Vomiting: This is being caused by the use of alcohol and cannabis.. Really, it is time to stop both the cannabis and alcohol explanation. Return if you vomiting any blood or dark or black material. Furthermore, he should be able take fluids through the afternoon as well as crackers - as you're doing so here. Medications: For the nausea or the vomiting take the Zofran or the Phenergan, but not both. Remember if he started getting 1 of those muscle pulls or contractions from the Phenergan to take Benadryl along with that as a preventative Referrals: Harvey Haley MD [Medical Doctor] - As per Instructions Arianna Agustin MD [Medical Doctor] - As per Instructions Stand Alone Forms: Work Excuse Prescriptions: Ondansetron Odt [Zofran Odt 4 mg (*)] 4 mg PO Q4 PRN #10 tab PRN Reason: Nausea/Vomiting, Can'T Take Po Promethazine HCl 25 mg PO Q6H PRN #10 tablet PRN Reason: Nausea/Vomiting, Can'T Take Po
[2019-01-04] MEDS ORDERED: NS 1,000 ML IV SCH (08:30)
[2019-01-04] MEDS ORDERED: PROMETHAZINE HCL 25 MG/ML INJ IVP ONE (08:36)
[2019-01-04] MEDS ORDERED: PROMETHAZINE HCL 25 MG/ML INJ ONE (08:37)
[2019-01-04 08:45] LABS: PLATELET COUNT 350 10^3/uL (150-400)
[2019-01-04 11:40] VITALS: BP 129/76
--- NOTE | 2019-01-04 15:33 | CPEKG ---
Test Reason : OPEN Blood Pressure : / mmHG Vent. Rate : 060 BPM Atrial Rate : 063 BPM P-R Int : 142 ms QRS Dur : 104 ms QT Int : 416 ms P-R-T Axes : 049 024 040 degrees QTc Int : 416 ms Sinus rhythm Atrial premature complex Minimal ST elevation, anterior leads Confirmed by Nick Juarez ([id number]) on 01/04/2019 3:33:09 PM Referred By: Nick Juarez Confirmed By:Nick Juarez
== END 2019-01-04 11:45 | disposition home or self-care (01) ==
LOC: CED 06:48
DX: K22.6 Gastro-esophageal laceration-hemorrhage syndrome (principal); G43.A1 Cyclical vomiting, in migraine, intractable; E86.9 Volume depletion, unspecified; F17.200 Nicotine dependence, unspecified, uncomplicated
CPT/HCPCS: 80053-ER; 82435-PO; 82565-PO; 82947-PO; 84132-PO; 84295-PO; 84484-ER; 84520-PO; 85014-ER; 96361-ER; 96374-ER; 96375-ER; 99284-ER; G0480; J2405; J2550

== ENCOUNTER 2019-01-26 18:12 | Emergency (ER) | payer OTHER, MEDICAID | END 2019-01-26 19:53 | disposition home or self-care (01) | LOC: CED 18:12 ==